=== PATIENT | male | born 1995 | race Hispanic/Latino ===

== ENCOUNTER 2019-10-01 18:10 | Emergency (ER) | payer BC ==
[2019-10-01 18:58] LABS: Absolute Lymphocytes (CBC) 1.2 K/uL (0.7-4.9); Hematocrit 38.9 % (39.6-49.0); Lymphocytes % 24.7 % (15.3-44.8); MPV 7.5 fL (7.6-11.3); RBC Red Blood Cell Count 4.54 M/uL (4.33-5.43)
[2019-10-01 19:00] LABS: Protime INR 1.29
[2019-10-01 19:26] LABS: ALT/SGPT 23 U/L (12-78); AST/SGOT 21 U/L (15-37); Albumin 3.4 g/dL (3.4-5.0); Alkaline Phosphatase 58 U/L (45-117); BUN Blood Urea Nitrogen 12 mg/dL (7-18); Bicarbonate 23 mmol/L (21-32); Bilirubin Direct 0.2 mg/dL (0-0.2); Bilirubin Total 0.7 mg/dL (0.2-1.0); Glucose Level 101 mg/dL (74-106); NT PRO-BNP 46 pg/mL (<125); Potassium 3.5 mmol/L (3.5-5.1); Protein, Total 7.8 g/dL (6.4-8.2); Sodium Level 141 mmol/L (136-145); Troponin (Emerg Dept Use Only) < 0.02 ng/mL (0.0-0.045)
--- NOTE | 2019-10-01 19:38 | RAD REPORT ---
EXAM DESCRIPTION: CT - Head Brain Wo Cont - 10/01/2019 7:24 pm CLINICAL HISTORY: SYNCOPE COMPARISON: No comparisons TECHNIQUE: Axial 5 mm thick images of the head were obtained without IV contrast. All CT scans are performed using dose optimization technique as appropriate and may include automated exposure control or mA/KV adjustment according to patient size. FINDINGS: No intracranial hemorrhage, mass, edema or shift of mid-line structures. No acute infarcti on changes seen. No abnormal extra-axial fluid collections. Ventricles are normal. Significant spray artifact is present from the cochlear implant on the left side. Mastoid air cells and visualized portions of the paranasal sinuses are clear. No acute bony findings. IMPRESSION: Negative non-contrast CT head examination. Portions of the occipital, temporal and parietal lobes are obscured by the left-sided cochlear implan t spray artifact.
--- NOTE | 2019-10-01 19:39 | RAD REPORT ---
EXAM DESCRIPTION: RAD - Chest Single View - 10/01/2019 6:36 pm CLINICAL HISTORY: syncope COMPARISON: December 2008 TECHNIQUE: AP portable chest image was obtained 10/01/2019 6:36 pm . FINDINGS: Lungs are clear. Heart and vasculature are normal. No measurable pleural effusion and no p neumothorax. No acute bone finding. Patient has normal variant upper thoracic rib anomaly. No acute a ortic findings suspected. IMPRESSION: No acute cardiopulmonary process. No significant change from comparison.
--- NOTE | 2019-10-01 20:43 | EDPHYS ---
Physician Documentation [facility] Name: Reji Sheriff Age: 24 yrs Sex: Male : 1995 Arrival Date: 10/01/2019 Time: 18:19 Bed 5 Private MD: ED Physician Jose Eduardo Lilly HPI: 09/30 18:58 This 24 yrs old Male presents to ER via EMS with complaints of Syncope. jmm 18:58 The patient has experienced syncope. Onset: The symptoms/episode began/occurred jm acutely, just prior to arrival. Associated injury: Head/face:. This is a 24 year old male with no chronic medical conditions that presents to the ED with syncope which occurred just prior to arrival. Patient was walking and fell to the floor while eating cake. Patient has currently been recovering from a strep infection. Patient was administered IV fluids with quick relief of symptoms. Patient currently only complains of chest pain which most likely occurred from the fall according to the father. . Historical: - Allergies: 18:23 No Known Allergies; bp - PMHx: 18:23 DEAF; bp - Immunization history:: Adult Immunizations up to date. - Social history:: Smoking status: Patient denies any tobacco usage or history of. ROS: 18:58 Constitutional: Negative for fever, chills, and weight loss, Respiratory: Negative for jmm shortness of breath, cough, wheezing, and pleuritic chest pain. 18:58 Cardiovascular: Positive for chest pain. 18:58 Neuro: Positive for syncope. 18:58 All other systems are negative. Exam: 18:44 ECG was reviewed by the Attending Physician. jmm 18:58 Constitutional: This is a well developed, well nourished patient who is awake, alert, jmm and in no acute distress. Head/Face: atraumatic. Eyes: EOMI, no conjunctival erythema appreciated ENT: Moist Mucus Membranes Neck: Trachea midline, Supple Chest/axilla: Normal chest wall appearance and motion. Cardiovascular: Regular rate and rhythm. No edema appreciated Respiratory: Normal respirations, no respiratory distress appreciated Abdomen/GI: Non distended, soft Back: Normal ROM Skin: General appearance color normal MS/ Extremity: Moves all extremities, no obvious deformities appreciated, no edema noted to the lower extremities Neuro: Awake and alert, normal gait Psych: Behavior is normal, Mood is normal, Patient is cooperative and pleasant Vital Signs: 18:20 BP 110 / 61; Pulse 79; Resp 16; Temp 98; Pulse Ox 100% ; bp 19:45 BP 116 / 63; Pulse 83; Resp 18; Pulse Ox 100% on R/A; sg 20:58 BP 108 / 67; Pulse 78; Resp 18; Pulse Ox 98% on R/A; ea MDM: 18:35 Patient medically screened. alexandre 20:41 Data reviewed: vital signs, nurses notes. Counseling: I had a detailed discussion with alexandre the patient and/or guardian regarding: the historical points, exam findings, and any diagnostic results supporting the discharge/admit diagnosis, the need for outpatient follow up, to return to the emergency department if symptoms worsen or persist or if there are any questions or concerns that arise at home. ED course: Patient is alert and non toxic in appearance in the ED. Ambulates without difficulty. Most likely vasovagal cause. Father advised to follow up with and otherwise given strict return precautions. Father understood and agrees with the plan of care. . 09/30 18:22 Order name: Basic Metabolic Panel; Complete Time: 19:29 [facility] 09/30 18:22 Order name: CBC with Diff; Complete Time: 19:29 [facility] 09/30 18:22 Order name: LFT's; Complete Time: 19:29 [facility] 09/30 18:22 Order name: Magnesium; Complete Time: 19:29 [facility] 09/30 18:22 Order name: NT PRO-BNP; Complete Time: 19:29 [facility] 09/30 18:22 Order name: PT-INR; Complete Time: 19:29 [facility] 09/30 18:22 Order name: Troponin (emerg Dept Use Only); Complete Time: 19:29 [facility] 09/30 18:22 Order name: XRAY Chest (1 view); Complete Time: 19:42 [facility] 09/30 18:22 Order name: EKG; Complete Time: 18:23 [facility] 09/30 18:22 Order name: Cardiac monitoring; Complete Time: 18:34 [facility] 09/30 18:22 Order name: EKG - Nurse/Tech; Complete Time: 18:34 [facility] 09/30 18:22 Order name: IV Saline Lock; Complete Time: 18:27 [facility] 09/30 18:22 Order name: Labs collected and sent; Complete Time: 19:01 [facility] 09/30 18:27 Order name: CT Head Brain wo Cont; Complete Time: 19:42 bp 09/30 18:22 Order name: O2 Per Protocol; Complete Time: 18:28 [facility] 09/30 18:22 Order name: O2 Sat Monitoring; Complete Time: 18:28 [facility] EC:44 Rate is 94 beats/min. Rhythm is regular. QRS [place] is Normal. VA interval is normal. QRS jmm interval is normal. QT interval is normal. No Q waves. T waves are Normal. No ST changes noted. Reviewed by me. Administered Medications: No medications were administered Disposition: 10/01 07:32 Co-signature as Attending Physician, Jose Eduardo Lilly MD. rn Disposition: 10/01/19 20:42 Discharged to Home. Impression: Syncope and collapse. - Condition is Stable. - Discharge Instructions: Syncope. - Medication Reconciliation Form, Thank You Letter, Antibiotic Education, Prescription Opioid Use, Work release form, Family Work Release form. - Follow up: Private Physician; When: 2 - 3 days; Reason: Recheck today's complaints, Continuance of care, Re-evaluation by your physician. Signatures: Dispatcher [employer] EDMS Rip An PA PA [facility] Jose Eduardo Lilly MD MD rn Antunez, Elena, RN RN ea Peltier, Brian, RN RN bp Corrections: (The following items were deleted from the chart) 09/30 21:16 20:42 10/01/2019 20:42 Discharged to Home. Impression: Syncope and collapse. Condition ea is Stable. Forms are Medication Reconciliation Form, Thank You Letter, Antibiotic Education, Prescription Opioid Use. Follow up: Private Physician; When: 2 - 3 days; Reason: Recheck today's complaints, Continuance of care, Re-evaluation by your physician. [facility]
--- NOTE | 2019-10-01 20:43 | ER ---
Nurse's Notes [facility] Name: Reji Sheriff Age: 24 yrs Sex: Male : 1995 Arrival Date: 10/01/2019 Time: 18:19 Bed 5 Private MD: Diagnosis: Syncope and collapse Presentation: 09/30 18:20 Chief complaint: EMS states: WITNESSED SYNCOPAL COLLAPSE. Coronavirus screen: Proceed bp with normal triage. Ebola Screen: No symptoms or risks identified at this time. Initial Sepsis Screen: Does the patient meet any 2 criteria? No. Patient's initial sepsis screen is negative. Does the patient have a suspected source of infection? No. Patient's initial sepsis screen is negative. Risk Assessment: Do you want to hurt yourself or someone else? Patient reports no desire to harm self or others. Onset of symptoms is unknown. Care prior to arrival: Medication(s) given: Normal saline infusion, 500 mL, IV initiated. 18 GA, in the left antecubital area. 18:20 Method Of Arrival: EMS: [facility] bp 18:20 Acuity: VIVEK 3 bp Triage Assessment: 18:23 General: Appears in no apparent distress. comfortable, Behavior is calm, cooperative, bp appropriate for age. Pain: Denies pain. EENT: No deficits noted. Neuro: Reports headache. Cardiovascular: Rhythm is sinus rhythm. Respiratory: No deficits noted. GI: No signs and/or symptoms were reported involving the gastrointestinal system. : No signs and/or symptoms were reported regarding the genitourinary system. Derm: No deficits noted. Musculoskeletal: No deficits noted. Historical: - Allergies: 18:23 No Known Allergies; bp - PMHx: 18:23 DEAF; bp - Immunization history:: Adult Immunizations up to date. - Social history:: Smoking status: Patient denies any tobacco usage or history of. Screenin:20 Abuse screen: Denies threats or abuse. Denies injuries from another. Nutritional bp screening: No deficits noted. Tuberculosis screening: No symptoms or risk factors identified. Fall Risk None identified. Assessment: 18:20 General: SEE TRIAGE NOTE. Neuro: Level of Consciousness is awake, alert, obeys bp commands, Oriented to person, place, time, situation, Appropriate for age. Cardiovascular: Rhythm is sinus rhythm. 20:40 General: Appears in no apparent distress. Behavior is calm, cooperative, appropriate ea for age. Pain: Denies pain. Neuro: Level of Consciousness is awake, alert, obeys commands, Oriented to person, place, time, situation. Cardiovascular: Patient's skin is warm and dry. Respiratory: Airway is patent Respiratory effort is even, unlabored, Respiratory pattern is regular, symmetrical. Derm: Skin is pink, warm \T\ dry. 20:57 Reassessment: Patient and/or family updated on plan of care and expected duration. Pain ea level reassessed. Patient is alert, oriented x 3, equal unlabored respirations, skin warm/dry/pink. Discharge instruction given to patient and family, pt awaiting on ride home. Vital Signs: 18:20 BP 110 / 61; Pulse 79; Resp 16; Temp 98; Pulse Ox 100% ; bp 19:45 BP 116 / 63; Pulse 83; Resp 18; Pulse Ox 100% on R/A; sg 20:58 BP 108 / 67; Pulse 78; Resp 18; Pulse Ox 98% on R/A; ea ED Course: 18:19 Patient arrived in ED. bp 18:20 Rip An PA is PHCP. jmm 18:20 Jose Eduardo Lilly MD is Attending Physician. jmm 18:20 Patient has correct armband on for positive identification. Bed in low position. Call bp light in reach. Side rails up X2. 18:20 Maintain EMS IV. Dressing intact. Good blood return noted. Site clean \T\ dry. Gauge \T\ bp site: 18 GAUGE LEFT AC. 18:22 Triage completed. bp 18:24 Arm band placed on. bp 18:27 Cristobal Wolf, SHANTA is Primary Nurse. bp 18:37 XRAY Chest (1 view) In Process Unspecified. EDMS 18:45 EKG done, by ED staff, reviewed by Rip ORTIZ. jb1 19:24 CT Head Brain wo Cont In Process Unspecified. EDMS 20:56 No provider procedures requiring assistance completed. IV discontinued, intact, ea bleeding controlled, No redness/swelling at site. Pressure dressing applied. Administered Medications: No medications were administered Outcome: 20:42 Discharge ordered by MD. jmm 20:57 Condition: stable ea 20:57 Discharge instructions given to patient, family, Instructed on discharge instructions, follow up and referral plans. Demonstrated understanding of instructions. 21:16 Discharged to home ambulatory, with family. joie 21:16 Patient left the ED. joie Signatures: Dispatcher [employer] EDMarv Galvan jb1 Kuldeep Salinas, RN RN Rip Gaston PA PA jmm Antunez, Elena, RN RN ea Peltier, Brian, RN RN bp Corrections: (The following items were deleted from the chart) 20:39 20:39 BP 116 / 63; Pulse 83bpm; Resp 18bpm; Pulse Ox 100% RA; sg sg
[2019-10-01 21:20] VITALS: TEMP 98
[2019-10-01 21:23] VITALS: BP 108/67; O2SAT 98
== END 2019-10-01 21:16 | disposition home or self-care (01) ==
LOC: ER 18:10
DX: R55 Syncope and collapse (principal)
CPT/HCPCS: 36415; 70450; 71045; 80048; 80076; 83735; 83880; 84484; 85025; 85610; 93005; 99284

== ENCOUNTER 2019-10-10 22:47 | Emergency (ER) | payer BC ==
[2019-10-11] MEDS ORDERED: LORazepam 2 MG/ML VIAL ONE ×2 (00:08→00:31)
[2019-10-11 00:14] LABS: Absolute Lymphocytes (CBC) 2.3 K/uL (0.7-4.9); Basophils % 1.2 % (0-1.3); Hematocrit 39.4 % (39.6-49.0); Lymphocytes % 46.9 % (15.3-44.8); MPV 8.6 fL (7.6-11.3); RBC Red Blood Cell Count 4.62 M/uL (4.33-5.43)
[2019-10-11 00:18] LABS: Protime INR 1.2
[2019-10-11 00:44] LABS: ALT/SGPT 21 U/L (12-78); AST/SGOT 22 U/L (15-37); Albumin 3.9 g/dL (3.4-5.0); Alkaline Phosphatase 64 U/L (45-117); BUN Blood Urea Nitrogen 14 mg/dL (7-18); Bicarbonate 26 mmol/L (21-32); Bilirubin Direct 0.1 mg/dL (0-0.2); Bilirubin Total 0.5 mg/dL (0.2-1.0); Glucose Level 78 mg/dL (74-106); Magnesium 1.9 mg/dL (1.8-2.4); Potassium 3.7 mmol/L (3.5-5.1); Protein, Total 8.2 g/dL (6.4-8.2); Sodium Level 139 mmol/L (136-145)
--- NOTE | 2019-10-11 01:21 | ER ---
Nurse's Notes [facility] Name: Reji Sheriff Age: 24 yrs Sex: Male : 1995 Arrival Date: 10/10/2019 Time: 22:51 Bed 13 Private MD: Yogesh Durbin R Diagnosis: Myoclonic Seizure Presentation: 10/09 23:07 Chief complaint: Parent and/or Guardian states: "He came by EMS last week after a jd3 seizure and was reporting left arm pain. they said he was dehydrated, treated him and sent him home. well tonight he started having that same pain in his left arm and he started having an uncontrollable twitch with that same arm and we don't know why, because he is feeling better compared to last week.". Coronavirus screen: Proceed with normal triage. Ebola Screen: Patient negative for fever greater than or equal to 101.5 degrees Fahrenheit, and additional compatible Ebola Virus Disease symptoms. Initial Sepsis Screen: Does the patient meet any 2 criteria? No. Patient's initial sepsis screen is negative. Does the patient have a suspected source of infection? No. Patient's initial sepsis screen is negative. Risk Assessment: Do you want to hurt yourself or someone else? Patient reports no desire to harm self or others. Onset of symptoms was October 10, 2019. 23:07 Method Of Arrival: Ambulatory jd3 23:07 Acuity: VIVEK 3 jd3 Historical: - Allergies: 23:12 No Known Allergies; jd3 - Home Meds: 23:12 None [Active]; jd3 - PMHx: 23:12 Deaf; jd3 - PSHx: 23:12 right sx; jd3 - Immunization history:: Adult Immunizations up to date. - Social history:: Smoking status: Patient denies any tobacco usage or history of. Patient/guardian denies using street drugs. Screenin:13 Abuse screen: Denies threats or abuse. Nutritional screening: No deficits noted. jd3 Tuberculosis screening: No symptoms or risk factors identified. Fall Risk Ambulatory Aid- None/Bed Rest/Nurse Assist (0 pts). Gait- Normal/Bed Rest/Wheelchair (0 pts) Mental Status- Oriented to own ability (0 pts). Total Krueger Fall Scale indicates No Risk (0-24 pts). Assessment: 23:12 General: Appears in no apparent distress. uncomfortable, Behavior is calm, cooperative, jd3 appropriate for age. Pain: Complains of pain in left arm Quality of pain is described as radiating. Neuro: Level of Consciousness is awake, alert, obeys commands, Oriented to person, place, time, situation. Cardiovascular: Capillary refill < 3 seconds Patient's skin is warm and dry. Respiratory: Airway is patent Respiratory effort is even, unlabored, Respiratory pattern is regular, symmetrical, Denies cough, shortness of breath. GI: No signs and/or symptoms were reported involving the gastrointestinal system. : No signs and/or symptoms were reported regarding the genitourinary system. EENT: No signs and/or symptoms were reported regarding the EENT system. Derm: Skin is intact, Skin is dry, Skin is normal, Skin temperature is warm. Musculoskeletal: Circulation, motion, and sensation intact. Range of motion: intact in all extremities, twitching of the left arm noted. 10/10 00:58 Reassessment: Patient appears in no apparent distress at this time. Patient and/or jd3 family updated on plan of care and expected duration. Pain level reassessed. Patient is alert, oriented x 3, equal unlabored respirations, skin warm/dry/pink. twitching to the left arm stopped. pt reporting less pain. Patient states feeling better. 01:35 Reassessment: Patient appears in no apparent distress at this time. Patient and/or jd3 family updated on plan of care and expected duration. Pain level reassessed. Patient is alert, oriented x 3, equal unlabored respirations, skin warm/dry/pink. Patient denies pain at this time. Patient states feeling better. Vital Signs: 10/09 23:12 BP 116 / 70; Pulse 86; Resp 16 S; Temp 98.3(O); Pulse Ox 99% on R/A; Weight 52.16 kg jd3 (R); Height 5 ft. 1 in. (154.94 cm) (R); Pain 10/10; 10/10 00:58 BP 105 / 60; Pulse 69; Resp 16 S; Pulse Ox 100% on R/A; jd3 10/09 23:12 Body Mass Index 21.73 (52.16 kg, 154.94 cm) d3 ED Course: 10/09 22:51 Patient arrived in ED. es 22:52 Yogesh Durbin MD is Private Physician. es 23:01 James Bearden RN is Primary Nurse. jd3 23:11 Triage completed. jd3 23:12 Arm band placed on. jd3 23:14 Patient has correct armband on for positive identification. Bed in low position. Call jd3 light in reach. Side rails up X 1. Adult w/ patient. Pulse ox on. NIBP on. 23:20 Adria Posada PA is PHCP. jr8 23:20 Esa Lawrence MD is Attending Physician. jr8 23:55 Inserted saline lock: 20 gauge in left antecubital area, using aseptic technique. Blood jd3 collected. 10/10 01:19 Ismael Sheth MD is Referral Physician. jr8 01:34 No provider procedures requiring assistance completed. IV discontinued, intact, jd3 bleeding controlled, No redness/swelling at site. Pressure dressing applied. Administered Medications: 00:09 Drug: Ativan 1 mg Route: IVP; Site: left antecubital; jd3 01:05 Follow up: Response: No adverse reaction jd3 00:27 Drug: Ativan 1 mg Route: IVP; Site: left antecubital; jd3 01:25 Follow up: Response: No adverse reaction jd3 Outcome: 01:20 Discharge ordered by . jr8 01:34 Discharged to home ambulatory, with family. jd3 01:34 Condition: stable 01:34 Discharge instructions given to patient, family, Instructed on discharge instructions, follow up and referral plans. medication usage, Demonstrated understanding of instructions, follow-up care, medications, Prescriptions given X 1. 01:37 Patient left the ED. jd3 Signatures: Joselin Tompkins Josh, PA PA jr8 James Bearden RN RN jd3 Corrections: (The following items were deleted from the chart) 01:37 0720 23:12 Musculoskeletal: Circulation, motion, and sensation intact. Range of jd3 motion: intact in all extremities, jd3 10/10 01:37 00:58 Reassessment: Patient appears in no apparent distress at this time. Patient jd3 and/or family updated on plan of care and expected duration. Pain level reassessed. Patient is alert, oriented x 3, equal unlabored respirations, skin warm/dry/pink. Patient states feeling better. jd3
--- NOTE | 2019-10-11 01:21 | EDPHYS ---
Physician Documentation [facility] Name: Reji Sheriff Age: 24 yrs Sex: Male : 1995 Arrival Date: 10/10/2019 Time: 22:51 Bed 13 Private MD: Yogesh Durbin R ED Physician Esa Lawrence HPI: 10/10 00:16 This 24 yrs old Male presents to ER via Ambulatory with complaints of Arm jr8 Problem, Hand problem. 00:16 Onset: The symptoms/episode began/occurred acutely, today. Associated signs and jr8 symptoms: The patient has no apparent associated signs or symptoms. Severity of symptoms: At their worst the symptoms were moderate, in the emergency department the symptoms are unchanged. The patient has not experienced similar symptoms in the past. The patient has been recently seen by a physician:. Patients mother stated that he started to have left arm pain. Had this once before and was seen in ED and diagnosed with syncope/seizure. Came today for arm pain again but now having twitching to arm that will not stop. Historical: - Allergies: 10/09 23:12 No Known Allergies; jd3 - Home Meds: 23:12 None [Active]; jd3 - PMHx: 23:12 Deaf; jd3 - PSHx: 23:12 right sx; jd3 - Immunization history:: Adult Immunizations up to date. - Social history:: Smoking status: Patient denies any tobacco usage or history of. Patient/guardian denies using street drugs. ROS: 10/10 00:16 Eyes: Negative for injury, pain, redness, and discharge, ENT: Negative for injury, jr8 pain, and discharge, Neck: Negative for injury, pain, and swelling, Cardiovascular: Negative for chest pain, palpitations, and edema, Respiratory: Negative for shortness of breath, cough, wheezing, and pleuritic chest pain, Abdomen/GI: Negative for abdominal pain, nausea, vomiting, diarrhea, and constipation, Back: Negative for injury and pain, Skin: Negative for injury, rash, and discoloration. MS/extremity: Positive for pain, Negative for injury or acute deformity, decreased range of motion. Neuro: Positive for seizure activity. Exam: 00:23 Eyes: Pupils equal round and reactive to light, extra-ocular motions intact. Lids and jr8 lashes normal. Conjunctiva and sclera are non-icteric and not injected. Cornea within normal limits. Periorbital areas with no swelling, redness, or edema. ENT: Nares patent. No nasal discharge, no septal abnormalities noted. Tympanic membranes are normal and external auditory canals are clear. Oropharynx with no redness, swelling, or masses, exudates, or evidence of obstruction, uvula midline. Mucous membranes moist. Neck: Trachea midline, no thyromegaly or masses palpated, and no cervical lymphadenopathy. Supple, full range of motion without nuchal rigidity, or vertebral point tenderness. No Meningismus. Cardiovascular: Regular rate and rhythm with a normal S1 and S2. No gallops, murmurs, or rubs. Normal PMI, no JVD. No pulse deficits. Respiratory: Lungs have equal breath sounds bilaterally, clear to auscultation and percussion. No rales, rhonchi or wheezes noted. No increased work of breathing, no retractions or nasal flaring. Abdomen/GI: Soft, non-tender, with normal bowel sounds. No distension or tympany. No guarding or rebound. No evidence of tenderness throughout. Back: No spinal tenderness. No costovertebral tenderness. Full range of motion. Skin: Warm, dry with normal turgor. Normal color with no rashes, no lesions, and no evidence of cellulitis. MS/ Extremity: Pulses equal, no cyanosis. Neurovascular intact. Full, normal range of motion. Neuro: Awake and alert, GCS 15, oriented to person, place, time, and situation. Cranial nerves II-XII grossly intact. Motor strength 5/5 in all extremities. Sensory grossly intact. Patient has focal twitching to left arm only. Vital Signs: 10/09 23:12 BP 116 / 70; Pulse 86; Resp 16 S; Temp 98.3(O); Pulse Ox 99% on R/A; Weight 52.16 kg jd3 (R); Height 5 ft. 1 in. (154.94 cm) (R); Pain 10/10; 10/10 00:58 BP 105 / 60; Pulse 69; Resp 16 S; Pulse Ox 100% on R/A; jd3 10/09 23:12 Body Mass Index 21.73 (52.16 kg, 154.94 cm) jd3 MDM: 10/09 23:27 Patient medically screened. jr8 07/21 01:17 Data reviewed: vital signs, nurses notes, lab test result(s), EKG. Data interpreted: Pulse oximetry: on room air is 100 %. Interpretation: normal. Counseling: I had a detailed discussion with the patient and/or guardian regarding: the historical points, exam findings, and any diagnostic results supporting the discharge/admit diagnosis, lab results, the need for outpatient follow up, a neurologist, to return to the emergency department if symptoms worsen or persist or if there are any questions or concerns that arise at home. Response to treatment: the patient's symptoms have resolved after treatment. ED course: Patient appears to be having myoclonic seizures. Ativan given which abated them. Patient had recent negative CT. Recommended him f/u with neurology at this point. Will put him on benzos for now until he can f/u. Mom knows to bring him back if worse . 10/09 23:44 Order name: Acetaminophen; Complete Time: 00:46 10/09 23:44 Order name: Basic Metabolic Panel; Complete Time: 00:10/09 23:44 Order name: CBC with Diff; Complete Time: 00:26 10/09 23:44 Order name: ETOH Level; Complete Time: 00:46 10/09 23:44 Order name: Hepatic Function; Complete Time: 00:46 10/09 23:44 Order name: PT-INR; Complete Time: 00:46 10/09 23:44 Order name: Ptt, Activated; Complete Time: 00:46 10/09 23:44 Order name: Salicylate; Complete Time: 00:46 10/09 23:44 Order name: EKG; Complete Time: 23:45 10/09 23:44 Order name: EKG - Nurse/Tech; Complete Time: 00:10/09 23:44 Order name: Magnesium; Complete Time: 00:46 10/09 23:44 Order name: IV Saline Lock; Complete Time: 00:10/09 23:44 Order name: Labs collected and sent; Complete Time: 00:09 Administered Medications: 00:09 Drug: Ativan 1 mg Route: IVP; Site: left antecubital; jd3 01:05 Follow up: Response: No adverse reaction jd3 00:27 Drug: Ativan 1 mg Route: IVP; Site: left antecubital; jd3 01:25 Follow up: Response: No adverse reaction jd3 Disposition: 02:51 Co-signature as Attending Physician, Esa Lawrence MD. mh7 Disposition: 10/11/19 01:20 Discharged to Home. Impression: Myoclonic Seizure . - Condition is Stable. - Discharge Instructions: Seizure, Adult. - Prescriptions for Ativan 1 mg Oral Tablet - take 1 tablet by ORAL route every 8 hours As needed; 20 tablet. - Medication Reconciliation Form, Thank You Letter, Antibiotic Education, Prescription Opioid Use, Work release form form. - Follow up: Ismael Sheth MD; When: 2 - 3 days; Reason: Recheck today's complaints, Continuance of care, Re-evaluation by your physician. - Problem is new. - Symptoms are resolved. Signatures: Dispatcher [employer] EDMS Adria Posada PA PA jr8 James Bearden RN RN jd3 Holmes, Maurice, MD MD mh7 Corrections: (The following items were deleted from the chart) 01:37 01:20 10/11/2019 01:20 Discharged to Home. Impression: Myoclonic Seizure . Condition is jd3 Stable. Forms are Medication Reconciliation Form, Thank You Letter, Antibiotic Education, Prescription Opioid Use. Follow up: Ismael Sheth; When: 2 - 3 days; Reason: Recheck today's complaints, Continuance of care, Re-evaluation by your physician. Problem is new. Symptoms are resolved. jr8
--- NOTE | 2019-10-11 10:14 | EKG ---
Test Date: 2019-10-10 Test Time: 23:56:43 Black Studies Professor: KAELYN MEASUREMENT RESULTS: Intervals: Rate: 86 TN: 130 QRSD: 90 QT: 350 QTc: 418 [place]: P: 63 TN: 130 QRS: 70 T: 45 INTERPRETIVE STATEMENTS: Normal sinus rhythm Normal ECG Compared to ECG 10/01/2019 18:36:16 No significant changes Electronically Signed On 10-11-19 10:13:46 CDT by Lyle Gordon
[2019-10-11 12:23] VITALS: TEMP 98.3
[2019-10-11 12:24] VITALS: BP 105/60; O2SAT 100
== END 2019-10-11 01:37 | disposition home or self-care (01) ==
LOC: ER 22:47
DX: G40.409 Other generalized epilepsy and epileptic syndromes, not intractable, without status epilepticus (principal)
CPT/HCPCS: 36415; 80048; 80076; 80320; 80329; 83735; 85025; 85610; 85730; 93005; 96374; 99284

== ENCOUNTER 2019-10-14 18:20 | Emergency (ER) | payer BC ==
[2019-10-14] MEDS ORDERED: LORazepam 2 MG/ML VIAL ONE (21:21)
--- NOTE | 2019-10-14 21:28 | RAD REPORT ---
EXAM DESCRIPTION: CT - Head Brain Wo Cont - 10/14/2019 9:09 pm CLINICAL HISTORY: Numbness COMPARISON: October 01, 2019 TECHNIQUE: Computed axial tomography of the head was obtained. IV contrast was not requested. All CT scans are performed using dose optimization technique as appropriate and may include automated exposure control or mA/KV adjustment according to patient size. FINDINGS: Left cochlear implant results in artifact obscuring portions of the left cerebrum and left cerebellum. Intracranial bleed is not seen. Ventricles are normal caliber. An extra-axial fluid collection is not seen. Visualized sinuses mastoids clear IMPRESSION: Grossly normal unenhanced head CT
[2019-10-14 22:08] LABS: Absolute Lymphocytes (CBC) 1.8 K/uL (0.7-4.9)
[2019-10-14 22:21] LABS: Basophils % 0.7 % (0-1.3); Hematocrit 42.1 % (39.6-49.0); Lymphocytes % 47.1 % (15.3-44.8); MPV 8.3 fL (7.6-11.3); RBC Red Blood Cell Count 4.93 M/uL (4.33-5.43)
[2019-10-14 22:32] LABS: ALT/SGPT 26 U/L (12-78); AST/SGOT 22 U/L (15-37); Albumin 4.1 g/dL (3.4-5.0); Alkaline Phosphatase 66 U/L (45-117); BUN Blood Urea Nitrogen 16 mg/dL (7-18); Bicarbonate 23 mmol/L (21-32); Bilirubin Direct 0.1 mg/dL (0-0.2); Bilirubin Total 0.5 mg/dL (0.2-1.0); Creatine Phosphokinase 60 U/L (39-308); Glucose Level 81 mg/dL (74-106); Phosphorus 3.6 mg/dL (2.5-4.9); Potassium 3.6 mmol/L (3.5-5.1); Protein, Total 8.5 g/dL (6.4-8.2); Sodium Level 140 mmol/L (136-145)
--- NOTE | 2019-10-14 23:02 | ER ---
Nurse's Notes [facility] Name: Reji Sheriff Age: 24 yrs Sex: Male : 1995 Arrival Date: 10/14/2019 Time: 18:22 Bed 7 Private MD: Diagnosis: Left Hand Twitching;Muscle Spasm Presentation: 10/13 18:36 Chief complaint: Parent and/or Guardian states: L hand twitching that began 1 week ago. ss Seen in the ER then and told to follow up with Neuro, but unable to get in until October 31. Coronavirus screen: Patient denies a cough. Patient denies shortness of breath or difficulty breathing. Patient denies measured and/or subjective temperature greater than 100.4F prior to today's visit. Patient denies travel on a cruise ship or to a country the [facility] currently lists as an affected area. Patient denies contact with known and/or suspected case of COVID-19. Ebola Screen: Patient denies exposure to infectious person. Patient denies travel to an Ebola-affected area in the 21 days before illness onset. Initial Sepsis Screen: Does the patient meet any 2 criteria? No. Patient's initial sepsis screen is negative. Does the patient have a suspected source of infection? No. Patient's initial sepsis screen is negative. Risk Assessment: Do you want to hurt yourself or someone else? Patient reports no desire to harm self or others. Onset of symptoms was October 06, 2019. 18:36 Method Of Arrival: Ambulatory ss 18:36 Acuity: VIVEK 3 ss Historical: - Allergies: 18:38 No Known Allergies; ss - PMHx: 18:38 Deaf; ss - PSHx: 18:38 right hand surgery; ss - Immunization history:: Adult Immunizations up to date. - Social history:: Smoking status: Patient denies any tobacco usage or history of. Screenin:06 Abuse screen: Denies threats or abuse. Denies injuries from another. Nutritional rr5 screening: No deficits noted. Tuberculosis screening: No symptoms or risk factors identified. Fall Risk None identified. Total Krueger Fall Scale indicates No Risk (0-24 pts). Assessment: 19:50 General: Appears in no apparent distress. comfortable, Behavior is calm, cooperative, rr5 appropriate for age. 19:50 Pain: Denies pain. Neuro: Level of Consciousness is awake, alert, obeys commands, rr5 Seizure activity remote sensing specialist stated his left hand is twitching. Cardiovascular: Capillary refill < 3 seconds Patient's skin is warm and dry. Respiratory: Airway is patent Respiratory effort is even, unlabored, Respiratory pattern is regular, symmetrical. GI: No signs and/or symptoms were reported involving the gastrointestinal system. : No signs and/or symptoms were reported regarding the genitourinary system. EENT: Parent/caregiver reports the patient having deaf. Derm: Skin is intact, is healthy with good turgor, Skin temperature is warm. Musculoskeletal: Capillary refill < 3 seconds. 22:00 Reassessment: Patient appears in no apparent distress at this time. Patient is alert, rr5 oriented x 3, equal unlabored respirations, skin warm/dry/pink. twitching stopped as stated by the remote sensing specialist. blood recollect and sent Patient states feeling better. Patient states symptoms have improved. 23:13 Reassessment: Patient appears in no apparent distress at this time. Patient is alert, rr5 oriented x 3, equal unlabored respirations, skin warm/dry/pink. discharge instruction given and explained without complaints made. Vital Signs: 18:36 BP 108 / 72; Pulse 75; Resp 14; Temp 98.0(TE); Pulse Ox 98% on R/A; Weight 52.16 kg; ss Height 5 ft. 1 in. (154.94 cm); 22:00 BP 110 / 70; Pulse 85; Resp 16; Pulse Ox 99% ; rr5 23:13 BP 111 / 72; Pulse 70; Resp 19; Pulse Ox 99% ; rr5 18:36 Body Mass Index 21.73 (52.16 kg, 154.94 cm) ED Course: 18:22 Patient arrived in ED. ag5 18:38 Triage completed. ss 18:38 Arm band placed on left wrist. ss 19:50 Levi Moreno, SHANTA is Primary Nurse. rr5 20:06 Patient has correct armband on for positive identification. Bed in low position. Call rr5 light in reach. Adult w/ patient. Pulse ox on. NIBP on. 20:32 Esa Lawrence MD is Attending Physician. mh7 21:10 CT Head Brain wo Cont In Process Unspecified. EDMS 21:40 Inserted saline lock: 20 gauge in right hand, using aseptic technique. Blood collected. rr5 22:41 No provider procedures requiring assistance completed. rr5 22:58 Ismael Sheth MD is Referral Physician. 7 23:15 IV discontinued, intact, bleeding controlled, No redness/swelling at site. Pressure rr5 dressing applied. Administered Medications: 21:28 Drug: Ativan 1 mg Route: IVP; Site: right hand; rr5 23:14 Follow up: Response: No adverse reaction rr5 Outcome: 23:00 Discharge ordered by . 7 23:15 Discharged to home ambulatory, with family. rr5 23:15 Condition: stable 23:15 Discharge instructions given to family, Instructed on discharge instructions, follow up and referral plans. medication usage, Demonstrated understanding of instructions, follow-up care, medications, Prescriptions given X 1. 23:15 Patient left the ED. rr5 Signatures: Dispatcher [employer] EDMS Joana Guillen RN RN Levi Moreno RN RN rr5 Nathen Lassiter 5 Esa Lawrence MD MD [facility] Corrections: (The following items were deleted from the chart) 23:14 19:50 EENT: No signs and/or symptoms were reported regarding the EENT system. rr5 rr5
--- NOTE | 2019-10-14 23:02 | EDPHYS ---
Physician Documentation [facility] Name: Reji Sheriff Age: 24 yrs Sex: Male : 1995 Arrival Date: 10/14/2019 Time: 18:22 Bed 7 Private MD: ED Physician Esa Lawrence HPI: 10/13 22:17 This 24 yrs old Male presents to ER via Ambulatory with complaints of Hand mh7 Problem. 22:17 The patient or guardian complains of. mh7 22:18 The patient's problem is reported as. mh7 22:20 The patient or guardian complains of left hand twitching. The complaints affect the mh7 left hand. Context: The problem was sustained at home, resulted from unknown cause. Onset: The symptoms/episode began/occurred 1 week(s) ago. Treatment prior to arrival includes: no previous treatment. Modifying factors: The symptoms are alleviated by nothing. the symptoms are aggravated by nothing. Associated signs and symptoms: Pertinent positives: pain, Pertinent negatives: decreased range of motion, deformity, erythema, fever, nausea, numbness, swelling, tingling, vomiting, warmth, weakness. Severity of symptoms: At their worst the symptoms were moderate, yesterday, in the emergency department the symptoms have improved, mildly. The patient has experienced a previous episode, last week. The patient has been recently seen at the [facility] Emergency Department, last week. Patient has had left hand twitching that started one week ago. He was treated in the ED with improvement of symptoms and discharged. Symptoms returned this morning. Denies any fever, injury, numbness/tingling, or weakness.. Historical: - Allergies: 18:38 No Known Allergies; ss - PMHx: 18:38 Deaf; ss - PSHx: 18:38 right hand surgery; ss - Immunization history:: Adult Immunizations up to date. - Social history:: Smoking status: Patient denies any tobacco usage or history of. ROS: 22:20 Constitutional: Negative for fever, chills, and weight loss, Eyes: Negative for injury, mh7 pain, redness, and discharge, ENT: Negative for injury, pain, and discharge, Neck: Negative for injury, pain, and swelling, Cardiovascular: Negative for chest pain, palpitations, and edema, Respiratory: Negative for shortness of breath, cough, wheezing, and pleuritic chest pain, Abdomen/GI: Negative for abdominal pain, nausea, vomiting, diarrhea, and constipation, Back: Negative for injury and pain, : Negative for injury, bleeding, discharge, and swelling, Skin: Negative for injury, rash, and discoloration, Psych: Negative for depression, anxiety, suicide ideation, homicidal ideation, and hallucinations, Allergy/Immunology: Negative for hives, rash, and allergies, Endocrine: Negative for neck swelling, polydipsia, polyuria, polyphagia, and marked weight changes, Hematologic/Lymphatic: Negative for swollen nodes, abnormal bleeding, and unusual bruising. Exam: 22:20 Constitutional: This is a well developed, well nourished patient who is awake, alert, mh7 and in no acute distress. Head/Face: Normocephalic, atraumatic. Eyes: Pupils equal round and reactive to light, extra-ocular motions intact. Lids and lashes normal. Conjunctiva and sclera are non-icteric and not injected. Cornea within normal limits. Periorbital areas with no swelling, redness, or edema. ENT: Nares patent. No nasal discharge, no septal abnormalities noted. Tympanic membranes are normal and external auditory canals are clear. Oropharynx with no redness, swelling, or masses, exudates, or evidence of obstruction, uvula midline. Mucous membranes moist. Neck: Trachea midline, no thyromegaly or masses palpated, and no cervical lymphadenopathy. Supple, full range of motion without nuchal rigidity, or vertebral point tenderness. No Meningismus. Chest/axilla: Normal chest wall appearance and motion. Nontender with no deformity. No lesions are appreciated. Cardiovascular: Regular rate and rhythm with a normal S1 and S2. No gallops, murmurs, or rubs. Normal PMI, no JVD. No pulse deficits. Respiratory: Lungs have equal breath sounds bilaterally, clear to auscultation and percussion. No rales, rhonchi or wheezes noted. No increased work of breathing, no retractions or nasal flaring. Abdomen/GI: Soft, non-tender, with normal bowel sounds. No distension or tympany. No guarding or rebound. No evidence of tenderness throughout. Back: No spinal tenderness. No costovertebral tenderness. Full range of motion. Skin: Warm, dry with normal turgor. Normal color with no rashes, no lesions, and no evidence of cellulitis. 22:20 Neuro: Awake and alert, GCS 15, oriented to person, place, time, and situation. Cranial nerves II-XII grossly intact. Motor strength 5/5 in all extremities. Sensory grossly intact. Cerebellar exam normal. Normal gait. Psych: Awake, alert, with orientation to person, place and time. Behavior, mood, and affect are within normal limits. 22:20 Musculoskeletal/extremity: Extremities: noted in the left hand: twitching, spasm, ROM: intact in all extremities, Circulation is intact in all extremities. Pulses: are normal with no appreciated deficits, Perfusion: the patient is normally perfused throughout, Perfusion: the extremity is normally perfused throughout, Sensation intact. Compartment Syndrome exam of affected extremity: is normal. no pain, no numbness, no tingling, no sensation deficit, no palor, no weak pulses, Joints: All joints appear normal with full range of motion. Weight bearing: able to fully bear weight, without difficulty, Tendon exam: specific tendon testing normal through active and passive range of motion Vital Signs: 18:36 BP 108 / 72; Pulse 75; Resp 14; Temp 98.0(TE); Pulse Ox 98% on R/A; Weight 52.16 kg; ss Height 5 ft. 1 in. (154.94 cm); 22:00 BP 110 / 70; Pulse 85; Resp 16; Pulse Ox 99% ; rr5 23:13 BP 111 / 72; Pulse 70; Resp 19; Pulse Ox 99% ; rr5 18:36 Body Mass Index 21.73 (52.16 kg, 154.94 cm) MDM: 20:52 Patient medically screened. [facility] 22:56 Differential diagnosis: Muscle Spasm, Paresthesias, Muscle Twitching, Focal Seizure. 7 Data reviewed: vital signs, nurses notes, old medical records, lab test result(s), CBC, electrolytes, radiologic studies, CT scan. Data interpreted: Pulse oximetry: on room air is 99 %. Interpretation: normal. Counseling: I had a detailed discussion with the patient and/or guardian regarding: the historical points, exam findings, and any diagnostic results supporting the discharge/admit diagnosis, lab results, radiology results, the need for outpatient follow up, to return to the emergency department if symptoms worsen or persist or if there are any questions or concerns that arise at home. Response to treatment: the patient's symptoms have resolved after treatment, the patient's blood pressure is in an acceptable range, mental status has returned to baseline, the patient no longer shows bradycardia, the patient is not short of breath, the patient is not tachycardic, the patient's pain is gone, the patient's temperature has normalized. 10/13 20:58 Order name: CBC with Diff; Complete Time: 22:49 7 10/13 20:58 Order name: Basic Metabolic Panel; Complete Time: 22:49 [facility] 10/13 20:58 Order name: LFT's; Complete Time: 22:49 [facility] 10/13 20:58 Order name: CPK; Complete Time: 22:49 [facility] 10/13 20:59 Order name: Magnesium; Complete Time: 22:49 [facility] 10/13 20:59 Order name: Phosphorus; Complete Time: 22:49 [facility] 10/13 20:59 Order name: CT Head Brain wo Cont; Complete Time: 21:56 [facility] 10/13 20:59 Order name: Saline Lock; Complete Time: 21:28 7 Administered Medications: 21:28 Drug: Ativan 1 mg Route: IVP; Site: right hand; rr5 23:14 Follow up: Response: No adverse reaction rr5 Disposition: 10/14/19 23:00 Discharged to Home. Impression: Left Hand Twitching, Muscle Spasm. - Condition is Stable. - Discharge Instructions: Muscle Cramps and Spasms, [id number]. - Prescriptions for Ativan 1 mg Oral Tablet - take 1 tablet by ORAL route every 8 hours As needed; 15 tablet. - Medication Reconciliation Form, Thank You Letter, Antibiotic Education, Prescription Opioid Use form. - Follow up: Private Physician; When: 2 - 3 days; Reason: Worsening of condition, Recheck today's complaints, Continuance of care, Re-evaluation by your physician. Follow up: Ismael Sheth MD; When: 2 - 3 days; Reason: Worsening of condition, Recheck today's complaints. - Problem is an ongoing problem. - Symptoms have improved. Signatures: Dispatcher [employer] EDTX Joana Guillen RN RN Levi Moreno RN RN rr5 Esa Lawrence MD MD mh7 Corrections: (The following items were deleted from the chart) 23:15 23:00 10/14/2019 23:00 Discharged to Home. Impression: Left Hand Twitching; Muscle rr5 Spasm. Condition is Stable. Forms are Medication Reconciliation Form, Thank You Letter, Antibiotic Education, Prescription Opioid Use. Follow up: Private Physician; When: 2 - 3 days; Reason: Worsening of condition, Recheck today's complaints, Continuance of care, Re-evaluation by your physician. Follow up: Ismael Sheth; When: 2 - 3 days; Reason: Worsening of condition, Recheck today's complaints. Problem is an ongoing problem. Symptoms have improved. mh7
[2019-10-14 23:21] VITALS: TEMP 98
[2019-10-14 23:22] VITALS: O2SAT 99
[2019-10-14 23:24] VITALS: BP 111/72
== END 2019-10-14 23:15 | disposition home or self-care (01) ==
LOC: ER 18:20
DX: M62.838 Other muscle spasm (principal)
CPT/HCPCS: 36415; 70450; 80048; 80076; 82550; 83735; 84100; 85025; 96374; 99284

== ENCOUNTER 2019-11-04 07:05 | Emergency (ER) | payer BC ==
--- OUTSIDE RECORDS SUMMARY | 2019-11-04 07:06 | XMS REPORT | Continuity of Care Document ---
:1995 Author Organization [facility] t Address [address] [place] [address] Dr. Turner [address] [place] [id number] Care Team Providers Name Role Phone Unavailable Unavailable Unavailable Problems This patient has no known problems. Allergies, Adverse Reactions, Alerts This patient has no known allergies or adverse reactions. Medications This patient has no known medications. Procedures This patient has no known procedures. Encounters Start End Encounter Admission Attending Care Care Encounter Source Date/Time Date/Time Type Type Clinicians Facility Department ID 2019-10-25 2019-10-25 Outpatient [id number] 13:06:00 13:06:00 Results This patient has no known results.
--- NOTE | 2019-11-04 07:18 | EDPHYS ---
Physician Documentation [facility] Name: Reji Sheriff Age: 24 yrs Sex: Male : 1995 Arrival Date: 11/04/2019 Time: 07:09 Bed Waiting Private MD: Yogesh Durbin R ED Physician Buddy Edge HPI: 11/03 07:26 This 24 yrs old Male presents to ER via Ambulatory with complaints of Rash. kb 07:26 The patient's rash thought to be caused by an unknown cause. The rash is located on the kb body diffusely. The rash can be described as papular. Onset: The symptoms/episode began/occurred 1 week(s) ago. Associated signs and symptoms: Pertinent positives: itching, Pertinent negatives: burning sensation, difficulty breathing, fever, nausea, Pain swelling of lips, swelling of throat, swelling of tongue, vomiting, wheezing. Severity of symptoms: At their worst the symptoms were moderate in the emergency department the symptoms are unchanged. Treatment given at home: Benadryl. The patient has experienced similar episodes in the past, a few times. The patient has not recently seen a physician. Mother reports pt has had a rash for over a week and has been complaining of itching. States he has had similar rashes before that went away after zyrtec, but he hasn't tried that yet. No one else has a rash in the household. . Historical: - Allergies: 07:15 Zyrtec; hb - PMHx: 07:13 Deaf; hb - PSHx: 07:13 right hand surgery; hb - Immunization history:: Adult Immunizations up to date. - Social history:: Smoking status: Patient denies any tobacco usage or history of. ROS: 07:25 Constitutional: Negative for fever, chills, and weight loss, Cardiovascular: Negative kb for chest pain, palpitations, and edema, Respiratory: Negative for shortness of breath, cough, wheezing, and pleuritic chest pain, Abdomen/GI: Negative for abdominal pain, nausea, vomiting, diarrhea, and constipation, Back: Negative for injury and pain, MS/Extremity: Negative for injury and deformity, Neuro: Negative for headache, weakness, numbness, tingling, and seizure. 07:25 Skin: Positive for rash, diffusely. Exam: 07:25 Constitutional: This is a well developed, well nourished patient who is awake, alert, kb and in no acute distress. Head/Face: Normocephalic, atraumatic. ENT: Nares patent. No nasal discharge, no septal abnormalities noted. Tympanic membranes are normal and external auditory canals are clear. Oropharynx with no redness, swelling, or masses, exudates, or evidence of obstruction, uvula midline. Mucous membranes moist. Neck: Trachea midline, no thyromegaly or masses palpated, and no cervical lymphadenopathy. Supple, full range of motion without nuchal rigidity, or vertebral point tenderness. No Meningismus. Chest/axilla: Normal chest wall appearance and motion. Nontender with no deformity. No lesions are appreciated. Cardiovascular: Regular rate and rhythm with a normal S1 and S2. No gallops, murmurs, or rubs. Normal PMI, no JVD. No pulse deficits. Respiratory: Lungs have equal breath sounds bilaterally, clear to auscultation and percussion. No rales, rhonchi or wheezes noted. No increased work of breathing, no retractions or nasal flaring. Abdomen/GI: Soft, non-tender, with normal bowel sounds. No distension or tympany. No guarding or rebound. No evidence of tenderness throughout. MS/ Extremity: Pulses equal, no cyanosis. Neurovascular intact. Full, normal range of motion. Neuro: Awake and alert, GCS 15, oriented to person, place, time, and situation. Cranial nerves II-XII grossly intact. Motor strength 5/5 in all extremities. Sensory grossly intact. Cerebellar exam normal. Normal gait. 07:25 Skin: rash can be described as nonspecific, and is diffusely located. Vital Signs: 07:13 BP 110 / 70; Pulse 74; Resp 16; Pulse Ox 100% ; Pain 0/10; hb MDM: 07:17 Patient medically screened. kb 07:20 Data reviewed: vital signs, nurses notes. Data interpreted: Pulse oximetry: on room air kb is 100 %. Interpretation: normal. Counseling: I had a detailed discussion with the patient and/or guardian regarding: the historical points, exam findings, and any diagnostic results supporting the discharge/admit diagnosis, the need for outpatient follow up, a family practitioner, to return to the emergency department if symptoms worsen or persist or if there are any questions or concerns that arise at home. Administered Medications: No medications were administered Disposition: 19:03 Co-signature as Attending Physician, Buddy Edge MD. jl Disposition: 11/04/19 07:17 Discharged to Home. Impression: Rash and other nonspecific skin eruption. - Condition is Stable. - Discharge Instructions: Rash, [id number]. - Prescriptions for Elimite 5 % Topical Cream - apply 1 application by TOPICAL route one time Wash after 12 hours.; 60 gram. Prednisone 20 mg Oral Tablet - take 1 tablet by ORAL route once daily for 5 days; 5 tablet. - Medication Reconciliation Form, Thank You Letter, Antibiotic Education, Prescription Opioid Use form. - Follow up: Emergency Department; When: As needed; Reason: Worsening of condition. Follow up: Private Physician; When: 2 - 3 days; Reason: Recheck today's complaints, Continuance of care, Re-evaluation by your physician. Signatures: Vangie Neil, DIRECTOR OF PROMOTIONSBuddy Parikh MD MD pkl Baxter, Heather, RN RN Corrections: (The following items were deleted from the chart) 07:15 07:13 Allergies: No Known Allergies; hb hb 07:15 07:13 Home Meds: None; hb hb 07:28 07:25 Constitutional: This is a well developed, well nourished patient who is awake, kb alert, and in no acute distress. Head/Face: Normocephalic, atraumatic. Chest/axilla: Normal chest wall appearance and motion. Nontender with no deformity. No lesions are appreciated. Cardiovascular: Regular rate and rhythm with a normal S1 and S2. No gallops, murmurs, or rubs. Normal PMI, no JVD. No pulse deficits. Respiratory: Lungs have equal breath sounds bilaterally, clear to auscultation and percussion. No rales, rhonchi or wheezes noted. No increased work of breathing, no retractions or nasal flaring. Abdomen/GI: Soft, non-tender, with normal bowel sounds. No distension or tympany. No guarding or rebound. No evidence of tenderness throughout. MS/ Extremity: Pulses equal, no cyanosis. Neurovascular intact. Full, normal range of motion. Neuro: Awake and alert, GCS 15, oriented to person, place, time, and situation. Cranial nerves II-XII grossly intact. Motor strength 5/5 in all extremities. Sensory grossly intact. Cerebellar exam normal. Normal gait. kb 07:31 07:17 11/04/2019 07:17 Discharged to Home. Impression: Rash and other nonspecific skin hb eruption. Condition is Stable. Forms are Medication Reconciliation Form, Thank You Letter, Antibiotic Education, Prescription Opioid Use. Follow up: Emergency Department; When: As needed; Reason: Worsening of condition. Follow up: Private Physician; When: 2 - 3 days; Reason: Recheck today's complaints, Continuance of care, Re-evaluation by your physician. kb
--- NOTE | 2019-11-04 07:18 | ER ---
Nurse's Notes [facility] Name: Reji Sheriff Age: 24 yrs Sex: Male : 1995 Arrival Date: 11/04/2019 Time: 07:09 Bed Waiting Private MD: Yogesh Durbin R Diagnosis: Rash and other nonspecific skin eruption Presentation: 11/03 07:11 Chief complaint: Diffuse itchy rash x 1 week, unrelieved by Zyrtec. Coronavirus screen: hb At this time, the client does not indicate any symptoms associated with coronavirus-19. Ebola Screen: No symptoms or risks identified at this time. Initial Sepsis Screen: Does the patient meet any 2 criteria? No. Patient's initial sepsis screen is negative. Does the patient have a suspected source of infection? No. Patient's initial sepsis screen is negative. Risk Assessment: Do you want to hurt yourself or someone else? Patient reports no desire to harm self or others. Onset of symptoms was October 29, 2019. 07:11 Method Of Arrival: Ambulatory hb 07:11 Acuity: VIVEK 4 hb Triage Assessment: 07:13 General: Appears in no apparent distress. Behavior is calm, cooperative. Pain: Denies hb pain. EENT: No signs and/or symptoms were reported regarding the EENT system. Neuro: Level of Consciousness is awake, alert, obeys commands, Oriented to person, place, time, situation. Cardiovascular: Patient's skin is warm and dry. Respiratory: Respiratory effort is even, unlabored, Respiratory pattern is regular, symmetrical. GI: No signs and/or symptoms were reported involving the gastrointestinal system. : No signs and/or symptoms were reported regarding the genitourinary system. Derm: Rash noted that is macular. Musculoskeletal: No signs and/or symptoms reported regarding the musculoskeletal system. Historical: - Allergies: 07:15 Zyrtec; hb - PMHx: 07:13 Deaf; hb - PSHx: 07:13 right hand surgery; hb - Immunization history:: Adult Immunizations up to date. - Social history:: Smoking status: Patient denies any tobacco usage or history of. Screenin:14 Abuse screen: Denies threats or abuse. Denies injuries from another. Nutritional hb screening: No deficits noted. Tuberculosis screening: No symptoms or risk factors identified. Fall Risk None identified. Assessment: 07:14 General: see triage. hb Vital Signs: 07:13 BP 110 / 70; Pulse 74; Resp 16; Pulse Ox 100% ; Pain 0/10; hb ED Course: 07:09 Patient arrived in ED. es 07:09 Yogesh Durbin MD is Private Physician. es 07:10 Vangie Neil FNP-C is [facility]. kb 07:10 Buddy Edge MD is Attending Physician. kb 07:12 Triage completed. hb 07:14 Arm band placed on. hb 07:14 Patient has correct armband on for positive identification. hb 07:14 No provider procedures requiring assistance completed. Patient did not have IV access hb during this emergency room visit. 07:31 Torri Wheeler, RN is Primary Nurse. hb Administered Medications: No medications were administered Outcome: 07:17 Discharge ordered by MD. kb 07:31 Discharged to home ambulatory, with family. hb 07:31 Condition: stable 07:31 Discharge instructions given to patient, family, Instructed on discharge instructions, follow up and referral plans. medication usage, Demonstrated understanding of instructions, follow-up care, medications, Prescriptions given X 2. 07:31 Patient left the ED. hb Signatures: Vangie Neil FNP-C FNP-Joselin Clancy Heather, RN RN hb Corrections: (The following items were deleted from the chart) 07:15 07:13 Allergies: No Known Allergies; hb hb 07:15 07:13 Home Meds: None; hb hb
[2019-11-04 07:36] VITALS: BP 110/70; O2SAT 100
== END 2019-11-04 07:31 | disposition home or self-care (01) ==
LOC: ER 07:05
DX: R21 Rash and other nonspecific skin eruption (principal)
CPT/HCPCS: 99281

== ENCOUNTER 2020-04-04 11:31 | Emergency (ER) | payer BC ==
--- OUTSIDE RECORDS SUMMARY | 2020-04-04 11:33 | XMS REPORT | Continuity of Care Document ---
:1995 Author Organization [facility] t Address [address] [place] [address] Dr. Turner [address] [place] [id number] Care Team Providers Name Role Phone Unavailable [...]
[2020-04-04] MEDS ORDERED: LIDOCAINE VISCOUS 2% SOLN 15 ML UDC ONE (13:52)
[2020-04-04] MEDS ORDERED: MAGNES/ALUMIN/SIMET 30ML UCUP ONE (13:52)
--- NOTE | 2020-04-04 14:39 | EDPHYS ---
Physician Documentation [facility] Name: Reji Sheriff Age: 25 yrs Sex: Male : 1995 Arrival Date: 04/04/2020 Time: 11:32 Bed Waiting Private MD: ED Physician Jose Eduardo Lilly HPI: 04/04 14:40 This 25 yrs old Male presents to ER via Ambulatory with complaints of Sore kb Throat. 14:40 The patient presents with sore throat. The patient describes throat pain as constant. kb Onset: The symptoms/episode began/occurred yesterday. Severity of symptoms: At their worst the symptoms were mild, moderate, in the emergency department the symptoms are unchanged. Modifying factors: The symptoms are alleviated by nothing, the symptoms are aggravated by swallowing, The patient has had contact with sick. Associated signs and symptoms: Pertinent positives: Sore throat. The patient has not experienced similar symptoms in the past. The patient has not recently seen a physician. Pt report sore throat since yesterday. Requests COVID test. Historical: - Allergies: 12:05 No Known Allergies; jl7 - Home Meds: 12:05 Zyrtec Oral [Active]; uknown seizure med [Active]; jl7 - PMHx: 12:05 Deaf; Seizures; jl7 - PSHx: 12:05 right hand surgery; jl7 - Immunization history:: Adult Immunizations not up to date. - Social history:: Smoking status: Patient denies any tobacco usage or history of. ROS: 14:39 Constitutional: Negative for fever, chills, and weight loss, Cardiovascular: Negative kb for chest pain, palpitations, and edema, Respiratory: Negative for shortness of breath, cough, wheezing, and pleuritic chest pain, Abdomen/GI: Negative for abdominal pain, nausea, vomiting, diarrhea, and constipation, MS/Extremity: Negative for injury and deformity, Skin: Negative for injury, rash, and discoloration, Neuro: Negative for headache, weakness, numbness, tingling, and seizure. 14:39 ENT: Positive for sore throat. Exam: 14:39 Constitutional: This is a well developed, well nourished patient who is awake, alert, kb and in no acute distress. Head/Face: Normocephalic, atraumatic. Chest/axilla: Normal chest wall appearance and motion. Nontender with no deformity. No lesions are appreciated. Cardiovascular: Regular rate and rhythm with a normal S1 and S2. No gallops, murmurs, or rubs. Normal PMI, no JVD. No pulse deficits. Respiratory: Lungs have equal breath sounds bilaterally, clear to auscultation and percussion. No rales, rhonchi or wheezes noted. No increased work of breathing, no retractions or nasal flaring. Abdomen/GI: Soft, non-tender, with normal bowel sounds. No distension or tympany. No guarding or rebound. No evidence of tenderness throughout. Skin: Warm, dry with normal turgor. Normal color with no rashes, no lesions, and no evidence of cellulitis. MS/ Extremity: Pulses equal, no cyanosis. Neurovascular intact. Full, normal range of motion. Neuro: Awake and alert, GCS 15, oriented to person, place, time, and situation. Cranial nerves II-XII grossly intact. Motor strength 5/5 in all extremities. Sensory grossly intact. Cerebellar exam normal. Normal gait. 14:39 ENT: Posterior pharynx: erythema, that is moderate. Vital Signs: 12:02 BP 127 / 77; Pulse 95; Resp 17; Temp 98.3; Pulse Ox 99% ; Weight 52.16 kg; Pain 5/10; jl7 MDM: 12:04 Patient medically screened. kb 14:40 Data reviewed: vital signs, nurses notes. Data interpreted: Pulse oximetry: on room air kb is 99 %. Interpretation: normal. Counseling: I had a detailed discussion with the patient and/or guardian regarding: the historical points, exam findings, and any diagnostic results supporting the discharge/admit diagnosis, lab results, the need for outpatient follow up, a family practitioner, to return to the emergency department if symptoms worsen or persist or if there are any questions or concerns that arise at home. 04/04 12:04 Order name: Strep; Complete Time: 14:38 kb 04/04 12:04 Order name: COVID-19 kb 04/04 14:57 Order name: Throat Culture EDMS Administered Medications: 13:40 Drug: GI Cocktail without - (Maalox Suspension 30 ml, Lidocaine Liquid 2 % 15 jl7 ml) Route: PO; Disposition: 18:07 Co-signature as Attending Physician, Jose Eduardo Lilly MD. rn Disposition: 04/04/20 14:39 Discharged to Home. Impression: Pain in throat. - Condition is Stable. - Discharge Instructions: Sore Throat, [id number]. - Medication Reconciliation Form, Thank You Letter, Antibiotic Education, Prescription Opioid Use form. - Follow up: Emergency Department; When: As needed; Reason: Worsening of condition. Follow up: Private Physician; When: 2 - 3 days; Reason: Recheck today's complaints, Continuance of care, Re-evaluation by your physician. Signatures: Dispatcher [employer] EDMA Vangie Neil, AGILE DEVELOPER-C AGILE DEVELOPER-Ckb Jose Eduardo Lilly MD MD rn Mary Kay RN RN jl7 Corrections: (The following items were deleted from the chart) 15:12 14:39 04/04/2020 14:39 Discharged to Home. Impression: Pain in throat. Condition is jl7 Stable. Forms are Medication Reconciliation Form, Thank You Letter, Antibiotic Education, Prescription Opioid Use. Follow up: Emergency Department; When: As needed; Reason: Worsening of condition. Follow up: Private Physician; When: 2 - 3 days; Reason: Recheck today's complaints, Continuance of care, Re-evaluation by your physician. kb
--- NOTE | 2020-04-04 14:39 | ER ---
Nurse's Notes [facility] Name: Reji Sheriff Age: 25 yrs Sex: Male : 1995 Arrival Date: 04/04/2020 Time: 11:32 Bed Waiting Private MD: Diagnosis: Pain in throat Presentation: 04/04 12:02 Chief complaint: Parent and/or Guardian states: Sore throat x 2 days, denies cough, jl7 denies fever. Coronavirus screen: Client denies travel out of the [place] in the last 14 days. shortness of breath, Client presents with at least one sign or symptom that may indicate coronavirus-19. Standard/surgical mask placed on the client. Provider contacted for isolation considerations. The client denies any previous COVID testing. Ebola Screen: No symptoms or risks identified at this time. Initial Sepsis Screen: Does the patient meet any 2 criteria? No. Patient's initial sepsis screen is negative. Does the patient have a suspected source of infection? No. Patient's initial sepsis screen is negative. Risk Assessment: Do you want to hurt yourself or someone else? Patient reports no desire to harm self or others. Onset of symptoms was April 02, 2020. Care prior to arrival: None. 12:02 Method Of Arrival: Ambulatory jl7 12:02 Acuity: VIVEK 4 jl7 Triage Assessment: 12:05 General: Appears in no apparent distress. uncomfortable, Behavior is calm, cooperative, jl7 appropriate for age. Pain: Complains of pain in sore throat. EENT: Throat is reddened. Historical: - Allergies: 12:05 No Known Allergies; jl7 - Home Meds: 12:05 Zyrtec Oral [Active]; uknown seizure med [Active]; jl7 - PMHx: 12:05 Deaf; Seizures; jl7 - PSHx: 12:05 right hand surgery; jl7 - Immunization history:: Adult Immunizations not up to date. - Social history:: Smoking status: Patient denies any tobacco usage or history of. Screenin:44 Abuse screen: Denies threats or abuse. Denies injuries from another. Nutritional jl7 screening: No deficits noted. Tuberculosis screening: No symptoms or risk factors identified. Fall Risk None identified. Assessment: 12:30 General: Appears in no apparent distress. uncomfortable, Behavior is calm, cooperative, jl7 appropriate for age. Pain: Complains of pain in sore throat Pain currently is 5 out of 10 on a pain scale. Neuro: Level of Consciousness is awake, alert, obeys commands, Oriented to person, place, time, situation. Cardiovascular: Patient's skin is warm and dry. Respiratory: Airway is patent Respiratory effort is even, unlabored, Respiratory pattern is regular, symmetrical, not auscultated. EENT: Throat is reddened. Derm: Skin is pink, warm \T\ dry. 13:44 Reassessment: Patient appears in no apparent distress at this time. No changes from jl7 previously documented assessment. Patient and/or family updated on plan of care and expected duration. Pain level reassessed. Patient is alert, oriented x 3, equal unlabored respirations, skin warm/dry/pink. Vital Signs: 12:02 BP 127 / 77; Pulse 95; Resp 17; Temp 98.3; Pulse Ox 99% ; Weight 52.16 kg; Pain 5/10; jl7 ED Course: 11:32 Patient arrived in ED. as 12:02 Mary Kay, SHANTA is Primary Nurse. jl7 12:03 Vangie Neil FNP-C is PHCP. kb 12:03 Jose Eduardo Lilly MD is Attending Physician. kb 12:04 Triage completed. jl7 12:05 Arm band placed on right wrist. Patient placed in waiting room, Patient notified of jl7 wait time. 12:30 COVID swab sent to lab. Flu and/or RSV swab sent to lab. jl7 13:44 Patient has correct armband on for positive identification. jl7 15:12 No provider procedures requiring assistance completed. Patient did not have IV access jl7 during this emergency room visit. Administered Medications: 13:40 Drug: GI Cocktail without - (Maalox Suspension 30 ml, Lidocaine Liquid 2 % 15 jl7 ml) Route: PO; Outcome: 14:39 Discharge ordered by . kb 15:12 Discharged to home ambulatory, with family. jl7 15:12 Condition: stable 15:12 Discharge instructions given to patient, family, Instructed on discharge instructions, follow up and referral plans. Demonstrated understanding of instructions, follow-up care. 15:12 Patient left the ED. jl7 Addendum: 04/05/2020 19:24 Addendum: COVID-19 Result: Negative result given to RN to notify pt. Attempted to i w contact pt regarding negative COVID-19 swab results. Left voice mail. 19:26 Addendum: COVID-19 Result: Negative result given to RN to notify pt. Notified pt of i w negative COVID 19 swab results. Pt advised that even with a negative test result they should remain in isolation until symptom free for 3 days without medication. Pt also advised to return to the ED for worsening symptoms. Signatures: Vangie Neil, CAN CLOSING MACHINE TENDER-C CAN CLOSING MACHINE TENDER-Josefina Anderson Irene, RN SHANTA iw Mary Kay RN RN jl7
[2020-04-04 15:25] VITALS: BP 127/77; TEMP 98.3; O2SAT 99
== END 2020-04-04 15:12 | disposition home or self-care (01) ==
LOC: ER 11:31
DX: J02.9 Acute pharyngitis, unspecified (principal); Z20.822 Contact with and (suspected) exposure to COVID-19
CPT/HCPCS: 87070; 87081; 99283; U0002

== ENCOUNTER 2020-07-07 11:28 | Emergency (ER) | payer BC ==
--- OUTSIDE RECORDS SUMMARY | 2020-07-07 11:30 | XMS REPORT | Continuity of Care Document ---
:1995 Author Organization [facility] Address [address] [place] [address] Dr. Turner [address] [place] [id number] Care Team Providers Name Role Phone Unavailable [...]
--- NOTE | 2020-07-07 13:00 | ER ---
Nurse's Notes [facility] Name: Reji Sheriff Age: 25 yrs Sex: Male : 1995 Arrival Date: 07/07/2020 Time: 11:30 Bed 12 Private MD: Diagnosis: Unspecified otitis externa, left ear Presentation: 07/07 11:35 Chief complaint: Patient states: L ear pain since last night. Denies drainage. Denies ca1 fever. Denies sore throat. Coronavirus screen: Client denies travel out of the [place] in the last 14 days. At this time, the client does not indicate any symptoms associated with coronavirus-19. Ebola Screen: Patient negative for fever greater than or equal to 101.5 degrees Fahrenheit, and additional compatible Ebola Virus Disease symptoms Patient denies exposure to infectious person. Patient denies travel to an Ebola-affected area in the 21 days before illness onset. No symptoms or risks identified at this time. Initial Sepsis Screen: Does the patient meet any 2 criteria? No. Patient's initial sepsis screen is negative. Does the patient have a suspected source of infection? No. Patient's initial sepsis screen is negative. Risk Assessment: Do you want to hurt yourself or someone else? Patient reports no desire to harm self or others. Onset of symptoms was July 07, 2020. 11:35 Method Of Arrival: Ambulatory ca1 11:35 Acuity: VIVEK 4 ca1 Historical: - Allergies: 11:37 No Known Allergies; ca1 - PMHx: 11:37 Deaf; Seizures; ca1 - PSHx: 11:37 right hand surgery; ca1 - Immunization history:: Flu vaccine is up to date. - Social history:: Smoking status: Patient denies any tobacco usage or history of. Screenin:41 Abuse screen: Denies threats or abuse. Denies injuries from another. Nutritional ca1 screening: No deficits noted. Tuberculosis screening: No symptoms or risk factors identified. Fall Risk None identified. Assessment: 12:41 General: Appears in no apparent distress. comfortable, Behavior is calm, cooperative, ca1 appropriate for age. Pain: Complains of pain in left ear Pain currently is 6 out of 10 on a pain scale. Neuro: Level of Consciousness is awake, alert, obeys commands, Oriented to person, place, time, situation. EENT: Tympanic membrane Ear canal. Derm: Skin is intact, is healthy with good turgor, Skin is pink, warm \T\ dry. 12:41 Musculoskeletal: Circulation, motion, and sensation intact. Capillary refill < 3 ca1 seconds. 13:02 Reassessment: Patient appears in no apparent distress at this time. Patient is alert, ca1 oriented x 3, equal unlabored respirations, skin warm/dry/pink. Vital Signs: 11:35 BP 124 / 78; Pulse 85; Resp 16 S; Temp 97.5(TE); Pulse Ox 99% on R/A; Weight 54.43 kg ca1 (R); Height 5 ft. 3 in. (160.02 cm) (R); Pain 6/10; 13:02 BP 115 / 69; Pulse 76; Resp 16 S; Pulse Ox 99% on R/A; ca1 11:35 Body Mass Index 21.26 (54.43 kg, 160.02 cm) ca1 ED Course: 11:30 Patient arrived in ED. as 11:37 Triage completed. ca1 11:37 Arm band placed on right wrist. ca1 12:39 Vangie Neil FNP-C is PHCP. kb 12:39 Nic Jean MD is Attending Physician. kb 12:41 Madelyn Melo RN is Primary Nurse. ca1 12:41 Patient has correct armband on for positive identification. Call light in reach. ca1 13:03 No provider procedures requiring assistance completed. Patient did not have IV access ca1 during this emergency room visit. Administered Medications: No medications were administered Outcome: 12:59 Discharge ordered by MD. kb 13:03 Discharged to home ambulatory, with family. ca1 13:03 Condition: stable 13:03 Discharge instructions given to patient, family, Instructed on discharge instructions, follow up and referral plans. medication usage, Demonstrated understanding of instructions, follow-up care, medications, Prescriptions given X 1. 13:03 Patient left the ED. ca1 Signatures: Vangie Neil FNP-C FNP-Josefina Anderosn as Madelyn Melo, RN RN ca1
--- NOTE | 2020-07-07 13:00 | EDPHYS ---
Physician Documentation [facility] Name: Reji Sheriff Age: 25 yrs Sex: Male : 1995 Arrival Date: 07/07/2020 Time: 11:30 Bed 12 Private MD: ED Physician Nic Jean HPI: 07/07 14:45 This 25 yrs old Male presents to ER via Ambulatory with complaints of Ear Pain.kb 14:45 The patient presents with pain. The complaints affect the left ear. The patient has not kb experienced similar symptoms in the past. The patient has not recently seen a physician. 14:46 Onset: The symptoms/episode began/occurred last night. Modifying factors: The symptoms kb are alleviated by nothing, the symptoms are aggravated by nothing. Associated signs and symptoms: The patient has no apparent associated signs or symptoms. Severity of symptoms: At their worst the symptoms were mild in the emergency department the symptoms are unchanged. Historical: - Allergies: 11:37 No Known Allergies; ca1 - PMHx: 11:37 Deaf; Seizures; ca1 - PSHx: 11:37 right hand surgery; ca1 - Immunization history:: Flu vaccine is up to date. - Social history:: Smoking status: Patient denies any tobacco usage or history of. ROS: 14:44 Constitutional: Negative for fever, chills, and weight loss, Respiratory: Negative for kb shortness of breath, cough, wheezing, and pleuritic chest pain, MS/Extremity: Negative for injury and deformity, Skin: Negative for injury, rash, and discoloration, Neuro: Negative for headache, weakness, numbness, tingling, and seizure. 14:44 ENT: Positive for ear pain. Exam: 14:45 Constitutional: This is a well developed, well nourished patient who is awake, alert, kb and in no acute distress. Head/Face: Normocephalic, atraumatic. Respiratory: Respirations even and unlabored. No increased work of breathing, no retractions or nasal flaring. Skin: Warm, dry with normal turgor. Normal color. MS/ Extremity: Pulses equal, no cyanosis. Neurovascular intact. Full, normal range of motion. Neuro: Awake and alert, GCS 15, oriented to person, place, time, and situation. Moves all extremities. Normal gait. 14:45 ENT: External ear(s): are unremarkable, Ear canal(s): swelling, that is moderate, of the left canal, TM's: are normal. Vital Signs: 11:35 BP 124 / 78; Pulse 85; Resp 16 S; Temp 97.5(TE); Pulse Ox 99% on R/A; Weight 54.43 kg ca1 (R); Height 5 ft. 3 in. (160.02 cm) (R); Pain 6/10; 13:02 BP 115 / 69; Pulse 76; Resp 16 S; Pulse Ox 99% on R/A; ca1 11:35 Body Mass Index 21.26 (54.43 kg, 160.02 cm) ca1 MDM: 12:40 Patient medically screened. kb 14:44 Data reviewed: vital signs, nurses notes. Data interpreted: Pulse oximetry: on room air kb is 99 %. Interpretation: normal. Counseling: I had a detailed discussion with the patient and/or guardian regarding: the historical points, exam findings, and any diagnostic results supporting the discharge/admit diagnosis, the need for outpatient follow up, a family practitioner, to return to the emergency department if symptoms worsen or persist or if there are any questions or concerns that arise at home. Administered Medications: No medications were administered Disposition: 07/08 08:29 Co-signature as Attending Physician, Nic Jean MD I agree with the assessment and se plan of care. Disposition: 07/07/20 12:59 Discharged to Home. Impression: Unspecified otitis externa, left ear. - Condition is Stable. - Discharge Instructions: Otitis Externa, [id number], Ear Drops, Adult, [id number]. - Prescriptions for Ciprodex 0.3- 0.1 % Otic Drops, Suspension - instill 4 drop by OTIC route every 12 hours for 7 days , for ears ONLY; 1 Container. - Medication Reconciliation Form, Thank You Letter, Antibiotic Education, Prescription Opioid Use, Work release form form. - Follow up: Emergency Department; When: As needed; Reason: Worsening of condition. Follow up: Private Physician; When: 2 - 3 days; Reason: Recheck today's complaints, Continuance of care, Re-evaluation by your physician. Signatures: Vangie Neil, CHIEF OF POLICE-C CHIEF OF POLICE-Nic Webb MD MD cha Acob, Cheryl, RN RN ca1 Corrections: (The following items were deleted from the chart) 07/07 13:03 12:59 07/07/2020 12:59 Discharged to Home. Impression: Unspecified otitis externa, left ca1 ear. Condition is Stable. Forms are Medication Reconciliation Form, Thank You Letter, Antibiotic Education, Prescription Opioid Use. Follow up: Emergency Department; When: As needed; Reason: Worsening of condition. Follow up: Private Physician; When: 2 - 3 days; Reason: Recheck today's complaints, Continuance of care, Re-evaluation by your physician. kb
[2020-07-07 13:09] VITALS: TEMP 97.5; O2SAT 99
[2020-07-07 13:11] VITALS: BP 115/69
== END 2020-07-07 13:03 | disposition home or self-care (01) ==
LOC: ER 11:28
DX: H60.92 Unspecified otitis externa, left ear (principal)
CPT/HCPCS: 99282

== ENCOUNTER 2021-03-28 19:15 | Emergency (ER) | payer BC ==
--- OUTSIDE RECORDS SUMMARY | 2021-03-28 19:19 | XMS REPORT | Continuity of Care Document ---
:1995 Author Organization [facility] t Address [address] [place] [address] [address] [place] [address] Care Team Providers Name Role Phone Elliott LEON Attending Clinician Unavailable Problems This patient has no known problems. Allergies, Adverse Reactions, Alerts This patient has no known allergies or adverse reactions. Medications This patient has no known medications. Procedures This patient has no known procedures. Encounters Start End Encounter Admission Attending Care Care Encounter Source Date/Time Date/Time Type Type Clinicians Facility Department ID 2019-10-25 2019-10-25 Outpatient [facility], [id number] 13:06:00 13:06:00 [facility] Results This patient has no known results.
[2021-03-29 01:27] LABS: Urine Blood Trace-lysed (Negative); Urine Glucose Negative (Negative); Urine Protein Negative (Negative)
[2021-03-29] MEDS ORDERED: MORPHINE 2 MG/ML SYR ONE (01:37)
[2021-03-29] MEDS ORDERED: ONDANSETRON 4 MG/2 ML VIAL ONE (01:38)
[2021-03-29] MEDS ORDERED: NA CHLORIDE 0.9% 1,000 ML ONE (01:38)
[2021-03-29] MEDS ORDERED: FAMOTIDINE 20 MG/2 ML VIAL IV ONE (01:38)
[2021-03-29 01:48] LABS: Absolute Lymphocytes (CBC) 2.2 K/uL (0.7-4.9); Hematocrit 52.2 % (39.6-49.0); Lymphocytes % 45.1 % (15.3-44.8); MPV 7.5 fL (7.6-11.3)
[2021-03-29 02:06] LABS: ALT/SGPT 52 U/L (12-78); AST/SGOT 45 U/L (15-37); Albumin 4.5 g/dL (3.4-5.0); Alkaline Phosphatase 119 U/L (45-117); BUN Blood Urea Nitrogen 9 mg/dL (7-18); Bicarbonate 26 mmol/L (21-32); Bilirubin Direct < 0.1 mg/dL (0-0.2); Bilirubin Total 0.5 mg/dL (0.2-1.0); Glucose Level 94 mg/dL (74-106); Lipase 185 U/L (73-393); Potassium 3.5 mmol/L (3.5-5.1); Protein, Total 11.1 g/dL (6.4-8.2); Sodium Level 138 mmol/L (136-145)
[2021-03-29 02:07] LABS: Magnesium 2.3 mg/dL (1.8-2.4)
--- NOTE | 2021-03-29 03:28 | ER ---
Nurse's Notes [facility] Name: Reji Sheriff Age: 26 yrs Sex: Male : 1995 Arrival Date: 03/28/2021 Time: 19:17 Bed 18 Private MD: Diagnosis: Epigastric pain Presentation: 03/28 21:24 Chief complaint: Parent and/or Guardian states: He complaining of upper belly pain that vc1 is continuous. My called me at work and said about 1:30- 2 oclock the pain started. Coronavirus screen: Vaccine status: Patient reports receiving the 2nd dose of the covid vaccine. At this time, the client does not indicate any symptoms associated with coronavirus-19. Ebola Screen: No symptoms or risks identified at this time. Initial Sepsis Screen: Does the patient meet any 2 criteria? No. Patient's initial sepsis screen is negative. Does the patient have a suspected source of infection? No. Patient's initial sepsis screen is negative. Risk Assessment: Do you want to hurt yourself or someone else? Patient reports no desire to harm self or others. Onset of symptoms was March 28, 2021 at 13:30. 21:24 Method Of Arrival: Ambulatory vc1 21:24 Acuity: VIVEK 4 vc1 Triage Assessment: 21:29 General: Appears in no apparent distress. uncomfortable, Behavior is calm, cooperative, vc1 appropriate for age. Pain: Complains of pain in epigastric area Pain currently is 5 out of 10 on a pain scale. at worst was 9 out of 10 on a pain scale. GI: Reports upper abdominal pain, normal bowel habits. Historical: - Allergies: 03/29 00:59 No Known Allergies; kd3 - Home Meds: 00:59 None [Active]; kd3 - PMHx: 00:59 Deaf; Seizures; kd3 - PSHx: 00:59 cochlear implant; kd3 - Immunization history:: Adult Immunizations up to date, Client reports receiving the 2nd dose of the Covid vaccine, Flu vaccine is not up to date. It has been more than one year since last vaccine. - Social history:: Smoking status: Patient denies any tobacco usage or history of. Screenin:03 Abuse screen: Denies threats or abuse. Denies injuries from another. Nutritional kd3 screening: No deficits noted. Tuberculosis screening: No symptoms or risk factors identified. Fall Risk None identified. Assessment: 01:03 GI: Bowel sounds present X 4 quads. Abd is soft and non tender X 4 quads. pt states kd3 that the pain is not worse when palpated. Vital Signs: 03/28 21:24 BP 141 / 90; Pulse 88; Resp 20; Temp 97.6; Pulse Ox 98% on R/A; Weight 54.43 kg; Height vc1 5 ft. 2 in. (157.48 cm); Pain 5/10; 03/29 00:59 BP 125 / 90; Pulse 66; Resp 18; Temp 97.7; Pulse Ox 98% on R/A; kd3 03/28 21:24 Body Mass Index 21.95 (54.43 kg, 157.48 cm) vc1 ED Course: 03/28 19:17 Patient arrived in ED. kc5 21:29 Triage completed. vc1 03/29 00:48 Kenia Mendoza, SHANTA is Primary Nurse. kd3 00:53 Nic De La Vega PA is PHCP. cp 00:53 Buddy Edge MD is Attending Physician. cp 01:03 Arm band placed on right wrist. kd3 01:04 Patient has correct armband on for positive identification. Call light in reach. Side kd3 rails up X2. 01:46 Magnesium Sent. kd3 01:46 Basic Metabolic Panel Sent. kd3 01:46 CBC with Diff Sent. kd3 01:46 Hepatic Function Sent. kd3 01:46 Lipase Sent. kd3 01:46 Magnesium Sent. kd3 02:49 CT Abd/Pelvis - IV Contrast Only In Process Unspecified. EDMS 03:26 Ronnie Gibson MD is Referral Physician. cp 04:06 No provider procedures requiring assistance completed. IV discontinued, intact, kd3 bleeding controlled, No redness/swelling at site. Administered Medications: 01:45 Drug: Pepcid (famotidine) 20 mg Route: IVP; Site: right antecubital; kd3 01:45 Not Given (Patient Refused): morphine 2 mg IVP once; (PAIN>8) RASS on ADMN: Combtv4, kd3 Very Agttd3, Agttd2, Rstlss1, AlertClm0, Drwsy-1, LtSdtn-2, ModSdtn-3, DpSdtn-4, UnArsble-5 x2 01:45 Drug: NS 0.9% 1000 ml Route: IV; Rate: 1 bolus; Site: right antecubital; kd3 01:46 Not Given (Patient Refused): Zofran (Ondansetron) 4 mg IVP once; over 2 minutes kd3 04:06 Drug: GI Cocktail without - (Maalox Suspension 30 ml, Lidocaine Liquid 2 % 15 kd3 ml) Route: PO; Outcome: 03:27 Discharge ordered by . tommy 04:06 Discharged to home ambulatory. kd3 04:06 Condition: stable 04:06 Discharge instructions given to patient, family, Instructed on discharge instructions, follow up and referral plans. medication usage, Demonstrated understanding of instructions, follow-up care, medications, Prescriptions given X 2. 04:12 Patient left the ED. kd3 Signatures: Dispatcher [employer] EDMS Nic De La Vega PA PA cp Doucette, Kyli RN RN kd3 Mariah Smith kc5 Yuni Duvall RN RN vc1 Corrections: (The following items were deleted from the chart) 01:02 00:59 Home Meds: uknown seizure med [Inactive]; kd3 kd3 01:02 00:59 Home Meds: Zyrtec Oral [Inactive]; kd3 kd3
--- NOTE | 2021-03-29 03:28 | EDPHYS ---
Physician Documentation [facility] Name: Reji Sheriff Age: 26 yrs Sex: Male : 1995 Arrival Date: 03/28/2021 Time: 19:17 Bed 18 Private MD: ED Physician Buddy Edge HPI: 03/29 01:10 This 26 yrs old Male presents to ER via Ambulatory with complaints of cp Abdominal Pain. 01:10 The patient presents with abdominal pain in the epigastric area. cp 01:10 Onset: The symptoms/episode began/occurred yesterday. cp 01:10 The symptoms do not radiate. Associated signs and symptoms: Pertinent positives: cp nausea, Pertinent negatives: diarrhea, fever, active vomiting. The symptoms are described as squeezing. Father reports patient took OTC tums w/o relief. Historical: - Allergies: 00:59 No Known Allergies; kd3 - Home Meds: 00:59 None [Active]; kd3 - PMHx: 00:59 Deaf; Seizures; kd3 - PSHx: 00:59 cochlear implant; kd3 - Immunization history:: Adult Immunizations up to date, Client reports receiving the 2nd dose of the Covid vaccine, Flu vaccine is not up to date. It has been more than one year since last vaccine. - Social history:: Smoking status: Patient denies any tobacco usage or history of. ROS: 01:15 Constitutional: Negative for body aches, chills, fever, poor PO intake. cp 01:15 Eyes: Negative for injury, pain, redness, and discharge. cp 01:15 ENT: Negative for ear pain, sore throat, difficulty swallowing, difficulty handling secretions. 01:15 Cardiovascular: Negative for chest pain. 01:15 Respiratory: Negative for cough, shortness of breath, wheezing. 01:15 Abdomen/GI: Positive for abdominal pain, nausea, of the epigastric area, Negative for vomiting, diarrhea, constipation. 01:15 Neuro: Negative for altered mental status, headache, weakness. 01:15 All other systems are negative. Exam: 01:20 Constitutional: The patient appears in no acute distress, alert, awake, non-toxic, well cp developed, well nourished. 01:20 Head/Face: Normocephalic, atraumatic. cp 01:20 Eyes: Periorbital structures: appear normal, Conjunctiva: normal, no exudate, no injection, Sclera: no appreciated abnormality, Lids and lashes: appear normal, bilaterally. 01:20 ENT: External ear(s): are unremarkable, Nose: is normal, Mouth: Lips: moist, Oral mucosa: moist, Posterior pharynx: Airway: no evidence of obstruction, patent. 01:20 Chest/axilla: Inspection: normal, Palpation: is normal, no crepitus, no tenderness. 01:20 Cardiovascular: Rate: normal, Rhythm: regular. 01:20 Respiratory: the patient does not display signs of respiratory distress, Respirations: normal, no use of accessory muscles, no retractions, labored breathing, is not present, Breath sounds: are clear throughout, no decreased breath sounds, no stridor, no wheezing. 01:20 Abdomen/GI: Inspection: abdomen appears normal, Bowel sounds: active, all quadrants, Palpation: soft, in all quadrants, moderate abdominal tenderness, in the epigastric area, rebound tenderness, is not appreciated, voluntary guarding, is not appreciated, involuntary guarding, is not appreciated. 01:20 Back: pain, is absent, ROM is normal. Vital Signs: 03/28 21:24 BP 141 / 90; Pulse 88; Resp 20; Temp 97.6; Pulse Ox 98% on R/A; Weight 54.43 kg; Height vc1 5 ft. 2 in. (157.48 cm); Pain 5/10; 03/29 00:59 BP 125 / 90; Pulse 66; Resp 18; Temp 97.7; Pulse Ox 98% on R/A; kd3 03/28 21:24 Body Mass Index 21.95 (54.43 kg, 157.48 cm) vc1 MDM: 00:54 Patient medically screened. cp 02:00 Differential diagnosis: appendicitis, cholecystitis, Cholelithiasis, gastritis, cp non-specific abd pain, pancreatitis, Peptic Ulcer Disease, Perf. Duodenal Ulcer, Perf. Gastric Ulcer. 03:25 Data reviewed: vital signs, nurses notes, lab test result(s), radiologic studies, CT cp scan. 03:25 Counseling: I had a detailed discussion with the patient and/or guardian regarding: the cp historical points, exam findings, and any diagnostic results supporting the discharge/admit diagnosis, lab results, radiology results, to return to the emergency department if symptoms worsen or persist or if there are any questions or concerns that arise at home. Response to treatment: the patient's symptoms have markedly improved after treatment, VSS. Patient reports pain improved with meds. Will discharge to home for continued monitoring. 03/29 01:03 Order name: Basic Metabolic Panel; Complete Time: 02:16 cp 03/29 03:12 Interpretation: Reviewed. 03/29 01:03 Order name: CBC with Diff; Complete Time: 02:16 cp 03/29 02:21 Interpretation: Normal except: RBC 6.00; HCT 52.2; LYM% 45.1; MPV 7.5. cp 03/29 01:03 Order name: Hepatic Function; Complete Time: 02:16 cp 03/29 03:11 Interpretation: Normal except: AST 45; ALK 119; TP 11.1; GLOB 6.6; A/G 0.7. cp 03/29 01:03 Order name: Lipase; Complete Time: 02:16 cp 03/29 01:03 Order name: Magnesium cp 03/29 01:04 Order name: Magnesium; Complete Time: 02:16 EDMS 03/29 03:12 Interpretation: Reviewed. 03/29 01:03 Order name: IV Saline Lock; Complete Time: 01:46 cp 03/29 01:03 Order name: CT Abd/Pelvis - IV Contrast Only cp 03/29 01:26 Order name: Urine Dipstick-Ancillary; Complete Time: 02:16 EDMS 03/29 03:11 Interpretation: Normal except: UBLD Trace-lysed. 03/29 01:03 Order name: Labs collected and sent; Complete Time: 01:46 cp 03/29 01:03 Order name: Urine Dipstick-Ancillary (obtain specimen); Complete Time: 01:46 cp Administered Medications: 01:45 Drug: Pepcid (famotidine) 20 mg Route: IVP; Site: right antecubital; kd3 01:45 Not Given (Patient Refused): morphine 2 mg IVP once; (PAIN>8) RASS on ADMN: Combtv4, kd3 Very Agttd3, Agttd2, Rstlss1, AlertClm0, Drwsy-1, LtSdtn-2, ModSdtn-3, DpSdtn-4, UnArsble-5 x2 01:45 Drug: NS 0.9% 1000 ml Route: IV; Rate: 1 bolus; Site: right antecubital; kd3 01:46 Not Given (Patient Refused): Zofran (Ondansetron) 4 mg IVP once; over 2 minutes kd3 04:06 Drug: GI Cocktail without - (Maalox Suspension 30 ml, Lidocaine Liquid 2 % 15 kd3 ml) Route: PO; Disposition: 06:53 Co-signature as Attending Physician, Buddy Edge MD. pkl Disposition Summary: 03/29/21 03:27 Discharge Ordered Location: Home cp Problem: new cp Symptoms: have improved cp Condition: Stable cp Diagnosis - Epigastric pain cp Followup: cp - With: Ronnie Gibson MD - When: 1 week - Reason: pain and/or symptoms continue Discharge Instructions: - Discharge Summary Sheet cp - Abdominal Pain, Adult cp - Gastroesophageal Reflux Disease, Adult cp Forms: - Medication Reconciliation Form cp - Thank You Letter cp - Antibiotic Education cp - Prescription Opioid Use cp Prescriptions: - Protonix 40 mg Oral Tablet - take 1 tablet by ORAL route once daily; 30 tablet; Refills: 0, Product cp Selection Permitted - Zofran 4 mg Oral Tablet - take 1 tablet by ORAL route every 12 hours As needed; 20 tablet; Refills: 0, cp Product Selection Permitted Signatures: Dispatcher [employer] EDBuddy Crawford MD MD pkl Nic De La Vega PA PA cp Kenia Mendoza, RN RN kd3 Corrections: (The following items were deleted from the chart) 01:02 00:59 Home Meds: uknown seizure med [Inactive]; kd3 kd3 01:02 00:59 Home Meds: Zyrtec Oral [Inactive]; kd3 kd3 01:53 01:45 This 26 yrs old Male presents to ER via Ambulatory with complaints of cp Abdominal Pain. cp 03/30 00:24 03/29 01:10 Father reports patient took OTC tums w/o relief. cp cp
[2021-03-29] MEDS ORDERED: MAGNES/ALUMIN/SIMET 30ML UCUP ONE (03:41)
[2021-03-29] MEDS ORDERED: LIDOCAINE VISCOUS 2% SOLN 15 ML UDC ONE (03:41)
[2021-03-29 04:19] VITALS: O2SAT 98
[2021-03-29 04:20] VITALS: BP 125/90; TEMP 97.7
--- NOTE | 2021-03-29 11:41 | RAD REPORT ---
EXAM DESCRIPTION: CT - Abdomen Pelvis W Contrast - 03/29/2021 6:05 am CLINICAL HISTORY: 26 years, Male, ABD PAIN COMPARISON: None. TECHNIQUE: Contrast-enhanced images of the abdomen and pelvis were performed utilizing 5 mm slice th ickness at 5 mm interval reconstruction from the lung bases to the ischial tuberosities after the adm inistration IV contrast. In addition multiplanar reformats in the coronal and sagittal plane were obtained and reviewed. This exam was performed according to our departmental dose-optimization protocol, which includes auto mated exposure control, adjustment of the mA and/or kV according to patient size and/or use of iterat sola reconstruction technique. FINDINGS: The lung bases demonstrate to be clear. The liver, pancreas, spleen and adrenal glands demonstrate to be unremarkable, no focal lesions are n oted. The gallbladder is contracted with no gross abnormality. The right kidney demonstrate a upper pole moiety deformity perhaps suggesting scarring from vascular insult and/or chronic pyelonephritis. The left kidney demonstrate normal uptake of contrast media. No evidence for nephrolithiasis and/or hydronephrosis. Grossly the unopacified stomach, small bowel and large bowel demonstrate to be within normal limits. There is no evidence for bowel dilatation/or free air. The appendix is normal on axial image 61-6 2. The urinary bladder demonstrate to be unremarkable. The prostate gland is normal. The aorta demon strate to be normal. There is no retroperitoneal lymphadenopathy. There is no ascites. The rest of the soft tissue and bony structures are within normal limits. IMPRESSION: No acute intra-abdominal process. Upper pole cortical deformity right kidney suggesting scarring from vascular insult and/or chronic py elonephritis. Electronically signed by: Marv Pennington MD 03/29/2021 3:02 AM NETWORK ARCHITECT MANAGER Due to temporary technical issues with the PACS/Fluency reporting system, reports are being signed by the in house radiologist without review as a courtesy to ensure prompt reporting. The interpreting r adiologist is fully responsible for the content of the report.
== END 2021-03-29 04:12 | disposition home or self-care (01) ==
LOC: ER 19:15
DX: R10.13 Epigastric pain (principal); R11.0 Nausea
CPT/HCPCS: 85025; 80048; 36415; 83735; 80076; 81003; 83690; 74177; 96374; 99284; Q9967; J2270; J7030; J2405

== ENCOUNTER 2021-08-01 01:27 | Observation (INO) | payer BC ==
--- OUTSIDE RECORDS SUMMARY | 2021-08-01 01:29 | XMS REPORT | Continuity of Care Document ---
:1995 Author Organization [facility] t Address [address] [place] [address] Care Team Providers Name Role Phone Zana AYALA Primary Care Physician CAROLYN Attending Clinician Unavailable Denver MOBLEY Attending Clinician Unavailable Ana Rosa_Domingo Attending Clinician Unavailable Elliott ASENCIO Attending Clinician Unavailable Matt Admitting Clinician Unavailable Payers Payer Name Policy Type Policy Number Effective Date Expiration Date S david [id number] PPO [id number] 2012 00:00:00 Problems This patient has no known problems. Allergies, Adverse Reactions, Alerts This patient has no known allergies or adverse reactions. Social History Social Habit Start Date Stop Date Quantity Comments Source History [facility] Alcohol Comment Exposure to Not sure [facility] SARS-CoV-2 (event) History [facility] Alcohol Std Drinks History [facility] Alcohol Binge Alcohol intake 2021-06-27 2021-06-27 Lifetime [place] [facility] 00:00:00 00:00:00 non-drinker (finding) History [facility] 2021-05-10 2021-05-10 1 [place] [facility] Alcohol Frequency 00:00:00 00:00:00 Sex Assigned At [birth year] [place] [facility] 00:00:00 00:00:00 Smoking Status Start Date Stop Date Source Never smoked tobacco [facility] Medications Ordered Filled Start Stop Current Ordering Indication Dosage Frequency Signature Comments Components Source Medication Medication Date Date Medication? Clinician (SIG) Name Name OXcarbazepi 2021- Yes [id number] 300mg Q.5D Take 1 [place] ne 06-27-08 tablet Health (Trileptal) 00:00: 04:59 (300 mg 300 MG 00 :00 total) by tablet mouth 2 (two) times a day. OXcarbazepi 2021- Yes [id number] 300mg Q.5D Take 1 [place] ne 06-27- tablet Health (Trileptal) 00:00: 04:59 (300 mg 300 MG 00 :00 total) by tablet mouth 2 (two) times a day. OXcarbazepi 2021- Yes [id number] 300mg Q.5D Take 1 [place] ne 06-27 tablet Health (Trileptal) 00:00: 04:59 (300 mg 300 MG 00 :00 total) by tablet mouth 2 (two) times a day. OXcarbazepi 2021- No oxcarbazep UT ne 05-10 ine 300 mg Health (Trileptal) 13:35: 00:00 tablet 300 MG 52 :00 TAKE HALF tablet TABLET IN THE MORNING AND 1 TABLET IN THE EVENING. OXcarbazepi Yes [id number] 150mg QD Take 0.5 [place] ne 2-18 tablets Health (Trileptal) 00:00: (150 mg 300 MG 00 total) by tablet mouth 1 (one) time each day for 7 doses. OXcarbazepi 2021- No [id number] 150mg QD Take 0.5 [place] ne 05-10 tablets Health (Trileptal) 00:00: 00:00 (150 mg 300 MG 00 :00 total) by tablet mouth 1 (one) time each day for 7 doses. OXcarbazepi 2021- Yes [id number] 150mg QD Take 0.5 [place] ne 2-18 - tablets Health (Trileptal) 00:00: 05:59 (150 mg 300 MG 00 :00 total) by tablet mouth 1 (one) time each day for 7 doses. Vital Signs Vital Name Observation Time Observation Value Comments Source Systolic blood pressure 2021-06-27 15:55:00 127 mm[Hg] [facility] Diastolic blood pressure 2021-06-27 15:55:00 84 mm[Hg] [facility] Heart rate 2021-06-27 15:55:00 88 [facility]min [facility] Body height 2021-06-27 15:55:00 160 cm [facility] Body weight 2021-06-27 15:55:00 61.236 [facility] BMI 2021-06-27 15:55:00 23.91 kg/m2 [facility] Systolic blood pressure 2021-05-10 19:05:00 123 mm[Hg] [facility] Diastolic blood pressure 2021-05-10 19:05:00 79 mm[Hg] [facility] Heart rate 2021-05-10 19:05:00 83 /min [facility] Body temperature 2021-05-10 19:05:00 [facility].56 [facility] height 2021-05-10 19:05:00 160 [facility] Body weight 2021-05-10 19:05:00 58.968 [facility] BMI 2021-05-10 19:05:00 23.03 kg/m2 [facility] Procedures This patient has no known procedures. Encounters Start End Encounter Admission Attending Care Care Encounter Source Date/Time Date/Time Type Type Clinicians Facility Department ID 2021-07-01 Outpatient [facility] [id number] [place] 01:05:58 HAMID [id number] [facility] 2021-06-27 Outpatient [facility] [id number] [place] 10:43:23 HAMID [id number] [facility] 2021-06-25 Outpatient [facility] [id number] [place] 12:55:08 [id number] [facility] 2021-06-24 Outpatient [facility] [id number] [place] 13:14:11 HAMID [id number] [facility] 2021-07-15 2021-07-15 Telephone MERON Asencio [facility] [id number] [place] 00:00:00 00:00:00 Hamid SUGAR [id number] [facility] MED [id number] [place] 2 [id number] 2021-07-15 2021-07-15 Telephone Yuliet Goff [facility] [id number] [place] 00:00:00 00:00:00 Yuliet Goff [place] [id number] Health [place] [id number] 2021-07-01 2021-07-01 Outpatient Matt VERDIN [facility] [id number] 01:12:00 01:12:00 [id number] da [facility] 2021-06-27 2021-06-27 [facility] [id number] [place] 11:00:00 11:15:00 Visit Hamid SUGAR [id number] alth [place] MED [id number] [address] 2 [id number] 2021-06-24 2021-06-24 Telephone Yuliet Goff [facility] [id number] [place] 00:00:00 00:00:00 Yuliet Goff [place] [id number] Health [place] [id number] 2021-05-10 2021-05-10 [facility] [id number] [place] 13:00:00 13:30:00 Visit HAMID SUGAR [id number] alth [place] MED [id number] [address] 2 [id number] 2019-10-25 2019-10-25 Outpatient [facility]I, [id number] [facility] 13:06:00 13:06:00 HAMID Results This patient has no known results.
[2021-08-01] MEDS ORDERED: ONDANSETRON 4 MG/2 ML VIAL ONE ×2 (02:30→10:58)
[2021-08-01] MEDS ORDERED: MAGNES/ALUMIN/SIMET 30ML UCUP ONE (02:30)
[2021-08-01] MEDS ORDERED: MORPHINE 2 MG/ML SYR ONE (02:30)
[2021-08-01] MEDS ORDERED: LIDOCAINE VISCOUS 2% SOLN 15 ML UDC ONE (02:31)
[2021-08-01] MEDS ORDERED: FAMOTIDINE 20 MG/2 ML VIAL IV ONE ×2 (02:31→09:33)
[2021-08-01] MEDS ORDERED: PANTOPRAZOLE 40 MG INJ ONE (02:31)
[2021-08-01] MEDS ORDERED: NA CHLORIDE 0.9% 1,000 ML ONE (02:31)
[2021-08-01 02:35] LABS: Absolute Lymphocytes (CBC) 1.4 K/uL (0.7-4.9); Hematocrit 44.2 % (39.6-49.0); Lymphocytes % 14.4 % (15.3-44.8); MPV 7.4 fL (7.6-11.3); RBC Red Blood Cell Count 4.98 M/uL (4.33-5.43)
[2021-08-01 02:47] LABS: Bilirubin Total 0.3 mg/dL (0.2-1.0); Potassium 3.4 mmol/L (3.5-5.1); Protein, Total 9.1 g/dL (6.4-8.2)
--- NOTE | 2021-08-01 05:14 | ER ---
Nurse's Notes [facility] Name: Reji Sheriff Age: 26 yrs Sex: Male : 1995 Arrival Date: 08/01/2021 Time: 01:30 Bed 15 Private MD: Diagnosis: Epigastric abdominal tenderness;Acute cholecystitis-cholelithiasis;Hypokalemia Presentation: 08/01 01:54 Acuity: VIVEK 3 lp1 01:55 Chief complaint: Patient states: Upper abdominal pain that began about 0100 with nausea lp1 and vomiting; No relieve with Maalox FLAT CUTTER. 01:55 Coronavirus screen: At this time, the client does not indicate any symptoms associated lp1 with coronavirus-19. Ebola Screen: No symptoms or risks identified at this time. Risk Assessment: Do you want to hurt yourself or someone else? Patient reports no desire to harm self or others. Onset of symptoms was August 01, 2021 at 01:00. 01:55 Method Of Arrival: Ambulatory lp1 02:15 Initial Sepsis Screen: Does the patient meet any 2 criteria? No. Patient's initial sm5 sepsis screen is negative. Does the patient have a suspected source of infection? No. Patient's initial sepsis screen is negative. Triage Assessment: 02:15 General: Appears in no apparent distress. Behavior is cooperative. sm5 Historical: - Allergies: 01:54 No Known Allergies; lp1 - Home Meds: 01:54 Nexium Oral [Active]; lp1 - PMHx: 01:54 Deaf; Seizures; Gerd; lp1 - PSHx: 01:54 cochlear implant; lp1 - Immunization history:: Adult Immunizations up to date. - Social history:: Smoking status: Patient denies any tobacco usage or history of. Screenin:15 Abuse screen: Denies threats or abuse. Denies injuries from another. Nutritional sm5 screening: No deficits noted. Tuberculosis screening: No symptoms or risk factors identified. Fall Risk None identified. Assessment: 02:15 General: Appears in no apparent distress. Behavior is appropriate for age. Pain: sm5 Complains of pain in right upper quadrant and epigastric area. Neuro: No deficits noted. Bass Agitation-Sedation Scale (RASS): 0 - Alert and Calm Level of Consciousness is awake, alert, obeys commands, Oriented to person, place, time, situation. Cardiovascular: No deficits noted. Capillary refill < 3 seconds Patient's skin is warm and dry. Respiratory: No deficits noted. Airway is patent Trachea midline Respiratory effort is even, unlabored. GI: Bowel sounds present X 4 quads. Abd is soft Reports nausea, vomiting. 03:30 Reassessment: No changes from previously documented assessment. Patient and/or family 5 updated on plan of care and expected duration. Pain level reassessed. 04:10 Reassessment: No changes from previously documented assessment. Patient is alert, sm5 oriented x 3, equal unlabored respirations, skin warm/dry/pink. 05:37 Reassessment: No changes from previously documented assessment. Patient and/or family sm5 updated on plan of care and expected duration. Pain level reassessed. 06:45 Reassessment: No changes from previously documented assessment. 5 Vital Signs: 02:15 BP 141 / 90; Pulse 79; Resp 21; Temp 97.9(O); Pulse Ox 98% on R/A; 5 ED Course: 01:30 Patient arrived in ED. kz 01:50 Nic Jean MD is Attending Physician. se 01:54 Triage completed. lp1 02:02 Arm band placed on. lp1 02:03 Keyla Lemon, SHANTA is Primary Nurse. sm5 02:15 Patient has correct armband on for positive identification. Bed in low position. Call 5 light in reach. Side rails up X2. 02:25 Inserted saline lock: 22 gauge in left antecubital area, using aseptic technique. Blood kd3 collected. 03:24 US Abdomen Limited In Process Unspecified. EDMS 03:36 CT Abd/Pelvis - IV Contrast Only In Process Unspecified. EDMS 05:12 Oneil Pressley MD is Hospitalizing Provider. se 19:51 No provider procedures requiring assistance completed. Patient admitted, IV remains in [address] Administered Medications: 02:40 Drug: Pepcid (famotidine) 20 mg Route: IVP; Site: left antecubital; sm5 04:21 Follow up: Response: No adverse reaction sm5 02:40 Drug: Zofran (Ondansetron) 4 mg Route: IVP; Site: left antecubital; sm5 04:20 Follow up: Response: Nausea is decreased sm5 02:40 Drug: ProTONIX (pantoprazole) 40 mg Route: IVP; Site: left antecubital; sm5 04:21 Follow up: Response: No adverse reaction 5 02:40 Drug: GI Cocktail without - (Maalox Suspension 30 ml, Lidocaine Liquid 2 % 15 sm5 ml) Route: PO; 04:21 Follow up: Response: No adverse reaction sm5 02:40 Drug: NS 0.9% 1000 ml Route: IV; Rate: 1 bolus; Site: left antecubital; sm5 04:22 Follow up: IV Status: Completed infusion; IV Intake: 1000ml 5 02:40 Drug: morphine 2 mg Route: IVP; Site: left antecubital; sm5 04:21 Follow up: Response: Pain is decreased 5 05:30 Drug: Zosyn (piperacillin-tazobactam) 3.375 grams Route: IVPB; Infused Over: 60 mins; sm5 Site: left antecubital; 06:32 Follow up: IV Status: Completed infusion; IV Intake: 100ml 5 06:32 Drug: NS 0.9% with KCl 20 mEq/L 1000 ml Route: IV; Rate: 100 ml/hr; Site: left sm5 antecubital; Medication: 19:51 VIS not applicable for this client. 5 Intake: 04:22 IV: 1000ml; Total: 1000ml. sm5 06:32 IV: 100ml; Total: 1100ml. 5 Outcome: 05:14 Decision to Hospitalize by Provider. [facility] 10:08 Patient left the ED. kj1 Signatures: Dispatcher [employer] EDMS Nic Jean MD MD cha Pena, Laura RN RN [email or web address] Shital Neil kj1 Kenia Mendoza RN RN kd3 Keyla Lemon RN RN sm5 Nicolle Azevedo
--- NOTE | 2021-08-01 05:15 | EDPHYS ---
Physician Documentation [facility] Name: Reji Sheriff Age: 26 yrs Sex: Male : 1995 Arrival Date: 08/01/2021 Time: 01:30 Bed 15 Private MD: ED Physician Nic Jean HPI: 08/01 02:17 This 26 yrs old Male presents to ER via Ambulatory with complaints of se Abdominal Pain, Vomiting. 02:17 The patient presents to the emergency department with nausea, vomiting, that is se intermittent. Onset: The symptoms/episode began/occurred yesterday. Possible causes: unknown. The symptoms are aggravated by nothing. The symptoms are alleviated by nothing. Associated signs and symptoms: Pertinent positives: nausea, vomiting. Severity of symptoms: At their worst the symptoms were mild moderate in the emergency department the symptoms are unchanged. The patient has experienced similar episodes in the past, several times. Historical: - Allergies: 01:54 No Known Allergies; lp1 - Home Meds: 01:54 Nexium Oral [Active]; lp1 - PMHx: 01:54 Deaf; Seizures; Gerd; lp1 - PSHx: 01:54 cochlear implant; lp1 - Immunization history:: Adult Immunizations up to date. - Social history:: Smoking status: Patient denies any tobacco usage or history of. ROS: 02:18 Constitutional: Negative for fever, chills, and weight loss, Eyes: Negative for injury, se pain, redness, and discharge, ENT: Negative for injury, pain, and discharge, Neck: Negative for injury, pain, and swelling, Cardiovascular: Negative for chest pain, palpitations, and edema, Respiratory: Negative for shortness of breath, cough, wheezing, and pleuritic chest pain, Back: Negative for injury and pain, : Negative for injury, bleeding, discharge, and swelling, MS/Extremity: Negative for injury and deformity, Skin: Negative for injury, rash, and discoloration, Neuro: Negative for headache, weakness, numbness, tingling, and seizure, Psych: Negative for depression, anxiety, suicide ideation, homicidal ideation, and hallucinations, Allergy/Immunology: Negative for hives, rash, and allergies, Endocrine: Negative for neck swelling, polydipsia, polyuria, polyphagia, and marked weight changes, Hematologic/Lymphatic: Negative for swollen nodes, abnormal bleeding, and unusual bruising. 02:18 Abdomen/GI: Positive for abdominal pain, nausea and vomiting, of the epigastric area. Exam: 02:18 Constitutional: This is a well developed, well nourished patient who is awake, alert, se and in no acute distress. Head/Face: Normocephalic, atraumatic. Eyes: Pupils equal round and reactive to light, extra-ocular motions intact. Lids and lashes normal. Conjunctiva and sclera are non-icteric and not injected. Cornea within normal limits. Periorbital areas with no swelling, redness, or edema. ENT: Nares patent. No nasal discharge, no septal abnormalities noted. Tympanic membranes are normal and external auditory canals are clear. Oropharynx with no redness, swelling, or masses, exudates, or evidence of obstruction, uvula midline. Mucous membranes moist. Neck: Trachea midline, no thyromegaly or masses palpated, and no cervical lymphadenopathy. Supple, full range of motion without nuchal rigidity, or vertebral point tenderness. No Meningismus. Chest/axilla: Normal chest wall appearance and motion. Nontender with no deformity. No lesions are appreciated. Cardiovascular: Regular rate and rhythm with a normal S1 and S2. No gallops, murmurs, or rubs. Normal PMI, no JVD. No pulse deficits. Respiratory: Lungs have equal breath sounds bilaterally, clear to auscultation and percussion. No rales, rhonchi or wheezes noted. No increased work of breathing, no retractions or nasal flaring. Back: No spinal tenderness. No costovertebral tenderness. Full range of motion. Male : Normal genitalia with no discharge or lesions. Skin: Warm, dry with normal turgor. Normal color with no rashes, no lesions, and no evidence of cellulitis. MS/ Extremity: Pulses equal, no cyanosis. Neurovascular intact. Full, normal range of motion. Neuro: Awake and alert, GCS 15, oriented to person, place, time, and situation. Cranial nerves II-XII grossly intact. Motor strength 5/5 in all extremities. Sensory grossly intact. Cerebellar exam normal. Normal gait. Psych: Awake, alert, with orientation to person, place and time. Behavior, mood, and affect are within normal limits. 02:18 Abdomen/GI: Inspection: abdomen appears normal, Bowel sounds: normal, Palpation: mild abdominal tenderness, in the epigastric area and right upper quadrant, Liver: no appreciated palpable abnormalities, Hernia: not appreciated. Vital Signs: 02:15 BP 141 / 90; Pulse 79; Resp 21; Temp 97.9(O); Pulse Ox 98% on R/A; sm5 MDM: 01:50 Patient medically screened. [facility] 02:19 Differential diagnosis: Nonspecific abd pain, gastritis, cholecystitis, pancreatitis, se diverticulitis, viral gastroenteritis, gastroenteritis. Data reviewed: vital signs, nurses notes, lab test result(s), radiologic studies, CT scan. Data interpreted: panel monitor: rate is 79 beats/min, rhythm is normal sinus rhythm, Pulse oximetry: on room air is 98 %. Test interpretation: by ED physician or midlevel provider:. Counseling: I had a detailed discussion with the patient and/or guardian regarding: the historical points, exam findings, and any diagnostic results supporting the discharge/admit diagnosis, lab results, radiology results, the need for outpatient follow up, for definitive care, 08/01 02:17 Order name: CBC with Diff; Complete Time: 03:10 [facility] 08/01 02:17 Order name: CMP; Complete Time: 03:10 [facility] 08/01 02:17 Order name: Lipase; Complete Time: 03:10 [facility] 08/01 05:24 Order name: Potassium EDMS 08/01 05:24 Order name: Urine Dipstick-Ancillary; Complete Time: 05:52 [facility] 08/01 09:35 Order name: COVID-19 SARS RT PCR (Document "Date of Onset" if Symptomatic) kj1 08/01 02:17 Order name: CT Abd/Pelvis - IV Contrast Only [facility] 08/01 02:24 Order name: US Abdomen Limited [facility] 08/01 02:17 Order name: IV Saline Lock; Complete Time: 02:25 [facility] 08/01 02:17 Order name: Labs collected and sent; Complete Time: 02:25 [facility] 08/01 02:17 Order name: Urine Dipstick-Ancillary (obtain specimen); Complete Time: 06:46 [facility] 08/01 03:11 Order name: PO challenge: JUICE; Complete Time: 03:57 [facility] Administered Medications: 02:40 Drug: Pepcid (famotidine) 20 mg Route: IVP; Site: left antecubital; sm5 04:21 Follow up: Response: No adverse reaction sm5 02:40 Drug: Zofran (Ondansetron) 4 mg Route: IVP; Site: left antecubital; sm5 04:20 Follow up: Response: Nausea is decreased sm5 02:40 Drug: ProTONIX (pantoprazole) 40 mg Route: IVP; Site: left antecubital; sm5 04:21 Follow up: Response: No adverse reaction sm5 02:40 Drug: GI Cocktail without - (Maalox Suspension 30 ml, Lidocaine Liquid 2 % 15 sm5 ml) Route: PO; 04:21 Follow up: Response: No adverse reaction sm5 02:40 Drug: NS 0.9% 1000 ml Route: IV; Rate: 1 bolus; Site: left antecubital; sm5 04:22 Follow up: IV Status: Completed infusion; IV Intake: 1000ml sm5 02:40 Drug: morphine 2 mg Route: IVP; Site: left antecubital; sm5 04:21 Follow up: Response: Pain is decreased sm5 05:30 Drug: Zosyn (piperacillin-tazobactam) 3.375 grams Route: IVPB; Infused Over: 60 mins; sm5 Site: left antecubital; 06:32 Follow up: IV Status: Completed infusion; IV Intake: 100ml sm5 06:32 Drug: NS 0.9% with KCl 20 mEq/L 1000 ml Route: IV; Rate: 100 ml/hr; Site: left sm5 antecubital; Disposition Summary: 08/01/21 05:14 Hospitalization Ordered Hospitalization Status: Observation se Provider: Oneil Pressley se Condition: Stable se Problem: new se Symptoms: have improved se Bed/Room Type: Standard se Location: DAY SURGERY OTHER(08/01/21 10:08) kj1 Room Assignment: DSO-(08/01/21 10:08) kj1 Diagnosis - Epigastric abdominal tenderness se - Acute cholecystitis - cholelithiasis se - Hypokalemia se Discharge Instructions: - Discharge Summary Sheet se - Indigestion se - Cholelithiasis se - Cholelithiasis, Vevq-ex-Euyz se Forms: - Medication Reconciliation Form se - SBAR form se Prescriptions: - Protonix 40 mg Oral Tablet - take 1 tablet by ORAL route once daily; 30 tablet; Refills: 0, Product se Selection Permitted - Zofran 4 mg Oral Tablet - take 1 tablet by ORAL route every 12 hours As needed; 20 tablet; Refills: 0, [facility] Product Selection Permitted - dicyclomine 20 mg Oral Tablet - take 1 tablet by ORAL route 4 times per day; 28 tablet; Refills: 0, Product se Selection Permitted Signatures: Dispatcher [employer] Nic Danielson MD MD cha Pena, Laura, RN RN lp1 Charlene Braun RN RN Shital Neil1 Keyla Lemon RN RN sm5 Corrections: (The following items were deleted from the chart) 05:16 05:14 Telemetry/MedSurg (observation) [facility] 05:16 05:14 [facility] 10:08 05:16 [facility] ER HOLD cg kj1 10:08 05:16 ERHOLD- kj1
[2021-08-01] MEDS ORDERED: NS KCL 20MEQ 1,000 ML IV ONE (05:19)
[2021-08-01] MEDS ORDERED: NA CHLORIDE 0.9% 100 ML IV ONE ×2 (05:19→09:39)
[2021-08-01] MEDS ORDERED: PIPERACIL/TAZO 3.375 GM VIAL IV ONE ×2 (05:20→09:33)
[2021-08-01 05:24] LABS: Urine Blood Trace-intact (Negative); Urine Glucose Negative (Negative); Urine Protein Negative (Negative); Urine Specific Gravity 1.015 (1.005-1.030)
[2021-08-01] MEDS ORDERED: ACETAMINOPHEN 500 MG TAB PO PRN (06:00)
[2021-08-01] MEDS ORDERED: ONDANSETRON 4 MG/2 ML VIAL IV PRN (06:00)
[2021-08-01] MEDS ORDERED: NS KCL 20MEQ 20 MEQ/1,000 ML BAG IV SCH (06:00)
[2021-08-01] MEDS ORDERED: MORPHINE 4 MG/ML SYR IV PRN (06:00)
[2021-08-01 06:03] VITALS: BMI 20.3
[2021-08-01] MEDS ORDERED: FAMOTIDINE 20 MG/2 ML VIAL IV SCH (09:00)
[2021-08-01] MEDS ORDERED: LIDOCAINE 1% MPF 5 ML VIAL ONE (10:05)
[2021-08-01] MEDS ORDERED: FENTANYL CITR 100 MCG/2 ML ONE (10:05)
[2021-08-01] MEDS ORDERED: ROCURONIUM 50 MG/5 ML VIAL IV ONE (10:05)
[2021-08-01] MEDS ORDERED: MIDAZOLAM HCL 2 MG/2 ML INJ ONE (10:05)
[2021-08-01] MEDS ORDERED: propofoL 200 MG/20 ML VIAL IV ONE (10:05)
[2021-08-01] MEDS: PIPER TAZO 3.375 GM in NA CHLORIDE 0.9% 100 ML IV SCH ×2 (10:14→16:54)
--- NOTE | 2021-08-01 10:25 | P.HP ---
Date of Service: 08/01/21 Chief complaint: Abdominal pain History of present Illness: Patient is a 26-year-old gentleman comes in with 1 day history of epigastric and right upper quadrant abdominal pain associated with nausea and vomiting. Patient had chicken with gravy last night. Patient has had similar episodes in the past. Patient denies any sore throat, runny nose, cough, headaches, dizziness, chest pain, fever or chills. Patient denies diarrhea, constipation, bright red blood per rectum, dysuria or hematuria. Review of systems: Otherwise unremarkable Past medical history: Deafness Past surgical history: Cochlear implant and right hand surgery Allergies: None Social history: Patient does not smoke or drink alcohol Family history: Noncontributory Vital signs: Stable, afebrile Physical exam: Awake alert oriented x3 Head and neck: No neck masses, no JVD, throat clear, neck supple and no evidence of icterus Chest: Clear Heart: S1-S2 Abdomen: Soft, nondistended, positive bowel sounds, tenderness in the right upper quadrant and epigastric region. No rebound, rigidity or guarding. Extremity: Neurovascular intact, full range of motion and nontender Neuro: Nonfocal Diagnostic data: Ultrasound, CT scan, labs reviewed. LFTs are within normal limits. Ultrasound has gallstones with minimal fluid around the gallbladder wall. Assessment: Acute cholecystitis with cholelithiasis Plan/recommendation: Admit, n.p.o., IV fluids, IV antibiotics and to the OR for laparoscopic cholecystectomy, possible open. Patient and parents understand risk, benefits and alternatives and agreed to procedure. Please note parents were present to to communicate via sign language with the patient. CC:
[2021-08-01] MEDS ORDERED: Ringers Lactate 1,000 ML IV ONE (10:32)
[2021-08-01] MEDS ORDERED: KETOROLAC 30 MG/ML INJ ONE (10:56)
[2021-08-01] MEDS ORDERED: dexAMETHasone 10 MG/ML VIAL ONE (10:56)
[2021-08-01] MEDS ORDERED: NEOSTIGMINE 1 MG/ML -5 ML ONE (10:58)
[2021-08-01] MEDS ORDERED: GLYCOPYRROLATE 0.2 MG/ML SYR ONE (11:27)
--- NOTE | 2021-08-01 11:40 | P.OP ---
Preop diagnosis: Acute cholecystitis and cholelithiasis Postop diagnosis: Same Procedure performed: Laparoscopic cholecystectomy Surgeon: Oneil Pressley MD [facility] Former: Cara PETERSON Estimated blood loss: Minimal Specimen: Gallbladder Findings: As above Anesthesia: General Complications: None Drains: None Fluids and blood products: Nonapplicable Disposition: Recovery room Operative note: Patient brought to the OR and placed in the supine position. General anesthesia begun. Patient prepped and draped in the usual sterile fashion. Marcaine 0.5% infiltrated locally. 15 blade used to make a 1 cm supraumbilical midline incision. Subcutaneous tissue divided and fascia identified and divided. Peritoneal cavity entered with sharp and blunt dissection. 12 mm trocar placed into the peritoneal cavity under direct vision. Pneumoperitoneum established. Then 3 5 mm trocar placed, 1 in the epigastric region just to the right of midline and 2 in the right subcostal region. Laparoscopy revealed a distended, acutely inflamed gallbladder with thickened wall. Gallbladder aspirated of bile. Fundus retracted superiorly. Infundibulum identified and retracted inferolaterally. Cystic duct and cystic artery clearly identified with blunt dissection. Clips placed and both structures divided. Gallbladder removed from the liver bed utilizing cautery. Bleeding on the liver bed controlled with cautery. Gallbladder retrieved through the umbilicus via Endo Catch bag. Right upper quadrant irrigated. Minimal oozing noted in the gallbladder fossa. Controlled with cautery. Surgicel left in place as a precaution. Effluent of the irrigation fluid was completely clear. There was no evidence of bleeding or bile leakage appreciated. All trochars were removed under direct vision. Stay sutures were tied to each other reapproximate the fascial defect. Subcutaneous wounds irrigated and bleeding controlled with cautery. Then 3-0 chromic used to reapproximate subcutaneous tissue and closed skin. Sterile dressing applied. Patient awakened and taken to recovery room in good general condition. CC:
--- NOTE | 2021-08-01 11:59 | RAD REPORT ---
EXAM DESCRIPTION: CT - Abdomen Pelvis W Contrast - 08/01/2021 5:44 am CLINICAL HISTORY: 26 years, Male, Epigastric pain COMPARISON: 03/29/2021 TECHNIQUE: Contrast-enhanced images of the abdomen and pelvis were performed utilizing 5 mm slice th ickness at 5 mm interval reconstruction from the lung bases to the ischial tuberosities after the adm inistration of IV contrast. In addition multiplanar reformats in the coronal and sagittal plane were obtained and reviewed. This exam was performed according to our departmental dose-optimization protocol, which includes auto mated exposure control, adjustment of the mA and/or kV according to patient size and/or use of iterat sola reconstruction technique. FINDINGS: The lung bases demonstrate minimal dependent atelectatic changes. The liver, pancreas, spleen and adrenal glands demonstrate to be unremarkable, no focal lesions are n oted. The gallbladder demonstrated presence of the minimal wall enhancement and questionable minimal trace of pericholecystic fluid on axial image 22-25. There are no significant calculi. There is no bi liary duct dilatation. The kidneys demonstrate normal uptake of contrast media. There is minimal cortical deformity of the l ower pole of the right kidney corresponding to scarring. No evidence for nephrolithiasis and/or hydro nephrosis. Grossly the unopacified stomach, small bowel and large bowel demonstrate to be within normal limits. There is no evidence for bowel dilatation/or free air. The appendix was not visualized although n o significant inflammatory changes are seen within the right lower quadrant. The left site colon is d ecompressed with no significant abnormalities. The urinary bladder demonstrate to be unremarkable. The prostate gland is normal. The aorta demon strate to be normal. There is no retroperitoneal lymphadenopathy. There is no ascites. The rest of the soft tissue and bony structures are within normal limits. IMPRESSION: Minimal gallbladder wall enhancement and questionable minimal trace of pericholecystic f luid. There are no significant calculi. Recommend further evaluation with right upper quadrant ultras ound if clinically indicated. Otherwise unremarkable CT scan of the abdomen and pelvis with contrast. Electronically signed by: Marv Pennington MD 08/01/2021 3:55 AM CDT Due to temporary technical issues with the PACS/Fluency reporting system, reports are being signed by the in house radiologists without review as a courtesy to insure prompt reporting. The interpreting radiologist is fully responsible for the content of the report.
[2021-08-01] MEDS ORDERED: HYDROCODONE/APAP 7.5/325 MG TAB PO PRN (12:07)
[2021-08-01] MEDS ORDERED: HYDROMORPHONE HCL 1 MG/ML INJ IV PRN (12:07)
--- NOTE | 2021-08-01 12:12 | RAD REPORT ---
EXAM DESCRIPTION: US - Abdomen Exam Limited - 08/01/2021 4:34 am CLINICAL HISTORY: 26 years, Male, ABD PAIN COMPARISON: Recent CT scan of the abdomen and pelvis. TECHNIQUE: Utilizing a curved array transducer, real-time ultrasound evaluation of the abdominal vis cera was performed. Color Doppler imaging was used to assess vascular flow. FINDINGS: The liver is normal in size. No significant intrahepatic biliary duct dilatation. The gallbladder to be distended. There is noted the presence of several echogenic structures correspo nding to cholelithiasis. There is no gallbladder wall thickening. Questionable minimal trace of peric holecystic fluid. There is negative ultrasonographic White sign. The common bile duct measures 2.6 m m. No intra or extrahepatic biliary duct dilatation was identified. There is no evidence for free fluid within the upper abdomen. IMPRESSION: Cholelithiasis with distended gallbladder and questionable minimal trace of pericholecys tic fluid. No gallbladder wall thickening or pericholecystic fluid. Findings could represent acute ch olecystitis. Correlation with a nuclear medicine hepatobiliary scan could be helpful for further eval uation. Electronically signed by: Marv Pennington MD 08/01/2021 4:00 AM CDT Due to temporary technical issues with the PACS/Fluency reporting system, reports are being signed by the in house radiologists without review as a courtesy to insure prompt reporting. The interpreting radiologist is fully responsible for the content of the report.
[2021-08-01] MEDS: Ringers Lactate 1,000 ML IV SCH ×2 (13:23→22:07)
[2021-08-01] MEDS ORDERED: MAGNES/ALUMIN/SIMET 30ML UCUP PO ONE (18:01)
[2021-08-01] MEDS: FAMOTIDINE 20 MG TAB PO SCH (21:08)
[2021-08-02] MEDS: PIPER TAZO 3.375 GM in NA CHLORIDE 0.9% 100 ML IV SCH ×2 (00:18→09:00)
[2021-08-02] MEDS: Ringers Lactate 1,000 ML IV SCH (02:01)
[2021-08-02 05:46] LABS: Absolute Lymphocytes (CBC) 1.1 K/uL (0.7-4.9); Hematocrit 39.7 % (39.6-49.0); Lymphocytes % 16.1 % (15.3-44.8); MPV 7.1 fL (7.6-11.3)
--- NOTE | 2021-08-02 08:29 | P.DS ---
Admission Date: 08/01/21 Discharge Date: 08/02/21 Disposition: ROUTINE DISCHARGE Discharge Condition: GOOD Reason for Admission: Acute cholecystitis and cholelithiasis Brief History of Present Illness: 26-year-old gentleman who came in with biliary colic. Work-up revealed acute cholecystitis and cholelithiasis. Hospital Course: Patient had been worked up with CT scan and ultrasound as well as laboratory data. Patient was found to have acute cholecystitis and cholelithiasis. Patient underwent a laparoscopic cholecystectomy yesterday. Postoperatively, patient is tolerating diet, ambulating, pain controlled on p.o. pain medication and afebrile. Therefore patient will be discharged home. Disposition: Home Condition: Stable See discharge instructions. Vital Signs/Physical Exam: Temp Pulse Resp BP Pulse Ox 97.6 F 83 17 153/57 H 98 08/02/21 00:00 08/02/21 00:00 08/02/21 01:17 08/02/21 00:00 08/02/21 01:17 Laboratory Data at Discharge: WBC 7.0 K/uL (4.3-10.9) D 08/02/21 05:27 Hgb 13.7 g/dL (13.6-17.9) 08/02/21 05:27 Hct 39.7 % (39.6-49.0) 08/02/21 05:27 Plt Count 178 K/uL (152-406) 08/02/21 05:27 Sodium 140 mmol/L (136-145) 08/01/21 02:23 Potassium Cancelled 08/01/21 Unknown BUN 13 mg/dL (7-18) 08/01/21 02:23 Creatinine 1.00 mg/dL (0.55-1.3) 08/01/21 02:23 Glucose 117 mg/dL (74-106) H 08/01/21 02:23 Total Bilirubin 0.3 mg/dL (0.2-1.0) 08/01/21 02:23 AST 25 U/L (15-37) 08/01/21 02:23 ALT 37 U/L (12-78) 08/01/21 02:23 Alkaline Phosphatase 83 U/L (45-117) 08/01/21 02:23 Lipase 135 U/L (73-393) 08/01/21 02:23 Home Medications: OXcarbazepine [Oxcarbazepine] 150 mg PO BID 08/01/21 Physician Discharge Instructions: Remove outer dressing in 2 days and shower Keep wound clean and dry May clean wound with peroxide, apply Neosporin and cover with gauze daily Incentive spirometry as ordered Tylenol [address] [facility] in [place] Diet: Regular Activity: No lifting more than 10 lbs Followup: Yogesh Durbin MD [Primary Care Provider] - Oneil Pressley MD [ACTIVE - CAN ADMIT] - 1 Week
[2021-08-02 09:03] VITALS: O2SAT 97
[2021-08-02] MEDS: FAMOTIDINE 20 MG TAB PO SCH (09:59)
[2021-08-02 10:11] VITALS: BP 127/59; TEMP 98.6
== END 2021-08-02 10:46 | disposition home or self-care (01) ==
LOC: ER 01:27 → ERHOLD 05:15 → 2ND 12:23
PROVIDERS: ADMIT Surgery; ATTEND Surgery
PROC: 0FT44ZZ Resection of Gallbladder, Percutaneous Endoscopic Approach (ICD-10-PCS; principal; 2021-08-01 08:45)
DX: K80.00 Calculus of gallbladder with acute cholecystitis without obstruction (principal); E87.6 Hypokalemia; K21.9 Gastro-esophageal reflux disease without esophagitis; R56.9 Unspecified convulsions; H91.90 Unspecified hearing loss, unspecified ear; Z20.822 Contact with and (suspected) exposure to COVID-19
CPT/HCPCS: 96365; 96361; 85025 ×2; 36415 ×2; 88304; 81003; 83690; 80053; 74177; 76705; 94010; 96375; 99284; 47562; U0003; Q9967; J2704; J2543 ×5; C9113; J2250; J3010; J1100; J2270; J1170; J2710; G0378 ×4; J7120 ×3; J7030; J2405 ×3; J3490 ×2; J3480

== ENCOUNTER 2024-08-03 22:43 | Emergency (ER) | payer BC, OTHER ==
--- OUTSIDE RECORDS SUMMARY | 2024-08-03 22:46 | XMS REPORT | Continuity of Care Document ---
Author Name Unknown Address [address] [facility] [address] [place] [address] Organization [facility] Address [address] [facility] [address] [place] [address] Care Team Providers [employer] Salesperson Name Role Phone Zana AYALA, Yogesh Primary Care Physician [phone] SUZET[facility] ASENCIO Attending Clinician Unavailable Yuliet Goff MA Attending Clinician Unavailguillermo e Matt Attending Clinician Unavailable SUZETTE ASENCIO Attending Clinician Unavailable Matt Admitting Clinician Unavailable Payers Payer Name Policy Type Policy Number Effective Date Expirati on Date Source MEDICARE PART A AND B [id number] 2020 00:00:00 [place] OUT OF STATE [id number] 2012 00:00:00 2022 00:00:00 [employer] [facility] [id number] 00:00:00 2023 00:00:00 [employer] (MEDICARE REPLACEMENT HMO) [id number] 2023 00:00:00 Problems Condition Name Condition Details Condition Category Status Onset Date Resolution Date Last Treatment Date Treating Clinician Comments Source BMI 25.0-25.9, adult BMI 25.0-25.9, adult Disease Active 10-27 00:00: 00 [facility] Focal seizure Focal seizure Disease Active 10-27 00:00: 00 [facility] Social History Social Habit Start Date Stop Date Quantity Comments Source History SDOH Alcohol Comment [facility] Exposure to SARS-CoV-2 (event) Not sure [facility] Alcohol intake 2022-10-27 00:00:00 2022-10-27 00:00:00 Lifetime non-drinker (finding) [facility] Tobacco use and exposure 2022-10-27 00:00:00 2022-10-27 00:00:00 Smokeless tobacco non-user [facility] Tobacco Comment 2022-10-27 00:00:00 2022-10-27 00:00:00 Smoking History Packs/day: N. Recorded: 1 [facility] History SDOH Alcohol Frequency 2022-10-27 00:00:00 2022-10-27 00:00:00 1 [facility] SD[facility] Alcohol Std Drinks 2022-10-27 00:00:00 2022-10-27 00:00:00 0 [facility] SD[facility] Alcohol Binge 2022-10-27 00:00:00 2022-10-27 00:00:00 1 [facility] Sex Assigned At 1995 00:00:00 1995 00:00:00 [facility] Smoking Status Start Date Stop Date Source Never smoked tobacco [facility] th Medications Ordered Medication Name Filled Medication Name Start Date Stop Date Current Medication? Ordering Clinician Indication Dosage Frequency Signature (SIG) Comments Components Source OXcarbazepi ne (Trileptal) 300 MG tablet 07-22 00:00: 00 Yes [id number] 300mg Q.5D Take 1 tablet (300 mg total) by mouth in the morning and 1 tablet (300 mg total) before bedtime. [facility] OXcarbazepi ne (Trileptal) 300 MG tablet 06-27 00:00: 00 07-28 04:59 :00 No [id number] 300mg Q.5D Take 1 tablet (300 mg total) by mouth 2 (two) times a day. [facility] OXcarbazepi ne (Trileptal) 300 MG tablet 05-10 13:35: 52 05-10 00:00 :00 No oxcarbazep ine 300 mg tablet TAKE HALF TABLET IN THE MORNING AND 1 TABLET IN THE EVENING. [facility] OXcarbazepi ne (Trileptal) 300 MG tablet 05-10 00:00: 00 06-27 00:00 :00 No [id number] 150mg QD Take 0.5 tablets (150 mg total) by mouth 1 (one) time each day for 7 doses. [facility] Vital Signs Vital Name Observation Time Observation Value Comments S ource Systolic blood pressure 2022-10-27 18:11:00 127 mm[Hg] [facility] Diastolic blood pressure 2022-10-27 18:11:00 85 mm[Hg] [facility] Heart rate 2022-10-27 18:11:00 81 /min [facility] Body height 2022-10-27 18:11:00 157.5 cm [facility] Body weight 2022-10-27 18:11:00 63.504 kg [facility] BMI 2022-10-27 18:11:00 25.61 kg/m2 [facility] Systolic blood pressure 2021-06-27 15:55:00 127 mm[Hg] [facility] Diastolic blood pressure 2021-06-27 15:55:00 84 mm[Hg] [facility] Heart rate 2021-06-27 15:55:00 88 /min [facility] Body height 2021-06-27 15:55:00 160 cm [facility] Body weight 2021-06-27 15:55:00 61.236 [facility] BMI 2021-06-27 15:55:00 23.91 kg/m2 [facility] Systolic blood pressure 2021-05-10 19:05:00 123 mm[Hg] [facility] Diastolic blood pressure 2021-05-10 19:05:00 79 mm[Hg] [facility] Heart rate 2021-05-10 19:05:00 83 /min [facility] Body temperature 2021-05-10 19:05:00 36.56 Liya [facility] Body height 2021-05-10 19:05:00 160 cm [facility] Body weight 2021-05-10 19:05:00 58.968 kg [facility] BMI 2021-05-10 19:05:00 23.03 kg/m2 [facility] En[facility]ters Start Date/Time End Date/Time Encounter Type Admission Type Attending [facility] Care Department Encounter ID Source 2022-10-20 13:04:31 [facility] [id number] [facility] 2022-07-22 13:50:29 [facility] [id number] [facility] 2023-10-28 11:00:00 2023-10-28 11:00:00 Outpatient [facility] [id number] [facility] 2023-02-09 00:00:00 2023-02-09 00:00:00 Outpatient [facility] [id number] 2022-10-27 13:00:00 2022-10-27 13:33:58 Office Visit Suzette sAencio [facility] [place] [facility] 2 [id number] [facility] 2022-10-27 11:00:00 2022-10-27 11:00:00 Outpatient [facility] [id number] [facility] 2021-08-13 14:15:00 2021-08-13 14:15:00 Outpatient [facility] [id number] [facility] 2021-07-15 00:00:00 2021-07-15 00:00:00 Telephone Suzette Asencio [facility] [place] [facility] [place] 2 [id number] [facility] 2021-07-15 00:00:00 2021-07-15 00:00:00 Telephone Yuliet Goff Delana [facility] [place] [id number] [facility] 2021-07-01 01:12:00 2021-07-01 01:12:00 Outpatient VicentamagalysNahunfco [facility] [id number] [facility] 2021-06-27 11:00:00 2021-06-27 11:15:00 Office Visit Suzette Asencio [facility] [place] [facility] 2 [id number] [facility] 2021-06-24 00:00:00 2021-06-24 00:00:00 Telephone Yuliet Goff Delana [facility] [place] [id number] [facility] 2021-05-10 13:00:00 2021-05-10 13:30:00 Office Visit SUZETTE ASENCIO [facility] [place] [facility] [place] 2 [id number] [facility] 2019-10-25 13:06:00 2019-10-25 13:06:00 Outpatient [facility]ZETTE ASENCIO [facility] [address] [place], [place] [address]FB
[2024-08-03] MEDS ORDERED: ACETAMINOPHEN 500 MG TAB ONE (23:13)
[2024-08-03] MEDS ORDERED: IBUPROFEN 400 MG TAB ONE (23:14)
[2024-08-03] MEDS ORDERED: CIPROFLOXACIN HCL 500 MG TAB ONE (23:14)
[2024-08-03] MEDS ORDERED: TDAP (DIPHTH,PERTUSS(ACELL),TET VAC) 0.5 ML VIAL IMVAC ONE (23:14)
--- NOTE | 2024-08-04 00:40 | EDPHYS ---
Physician Documentation [facility] Name: Reji Sheriff Age: 29 yrs Sex: Male : 1995 Arrival Date: 08/03/2024 Time: 22:43 Bed 13 Private MD: ED Physician Telly Courtney HPI: 08/04 01:02 This 29 yrs old Male presents to ER via Ambulatory with complaints of sb4 Laceration To Hand. 01:02 Accidentally cut the palm of his right hand with a fishing knife prior to arrival. sb4 States he had not use the knife on the fish or anything earlier, but does not know if it is clean or not. States tetanus shot is not up-to-date. Injury occurred several hours ago. Historical: - Allergies: 08/03 23:02 No Known Allergies; cp4 - PMHx: 23:02 Deaf; GERD; Seizures; cp4 - PSHx: 23:02 cochlear implant; cp4 - Immunization history:: Adult Immunizations up to date. - Infectious Disease History:: Denies. - Social history:: Smoking status: Patient denies any tobacco usage or history of. ROS: 08/04 01:02 Constitutional: Negative for fever, chills, and weight loss, sb4 Skin: Positive for laceration(s), of the palm of right hand, All other systems are negative, Exam: 01:02 Constitutional: This is a well developed, well nourished patient who is awake, alert, sb4 and in no acute distress. 01:02 Skin: Appearance: injury, laceration(s), the wound is approximately 1 cm(s), with a depth of .2 cm(s), of the palm of right hand, that can be described as clean, no foreign body, linear, without bleeding, Vital Signs: 08/03 23:01 BP 129 / 81; Pulse 83; Resp 18; Temp 98.2; Pulse Ox 99% ; Weight 63.5 kg; Height 5 ft. cp4 3 in. ; Pain 3/10; 23:58 BP 120 / 74; Pulse 81; Resp 18; Pulse Ox 98% ; cp4 23:01 Body Mass Index 24.80 (63.50 kg, 160.02 cm) cp4 23:01 Pain Scale: Adult cp4 MDM: 22:54 Medical Screening Exam initiated sb4 08/04 01:04 Data reviewed: vital signs, nurses notes, radiologic studies, I have discussed the sb4 patient's presentation/case with the attending Emergency Department Physician; and as a result, I will discharge patient. Counseling: I had a detailed discussion with the patient and/or guardian regarding the historical points, exam findings, and any diagnostic results supporting the discharge/admit diagnosis, radiology results, the need for outpatient follow up, for definitive care, to return to the emergency department if symptoms worsen or persist or if there are any questions or concerns that arise at home. ED course: Laceration is very minor, bleeding is controlled, no repair is required at this time. 08/03 23:08 Order name: Hand Right 3 View XRAY sb4 08/03 23:08 Order name: Wound Care; Complete Time: 23:33 sb4 08/03 23:08 Order name: Wound dressing; Complete Time: 23:33 sb4 08/04 00:39 Order name: Harvinder Wrap; Complete Time: 00:43 sb4 Administered Medications: 08/03 23:19 Drug: Ibuprofen PO 800 mg PO once Route: PO; cp4 08/04 00:41 Follow up: Response: No adverse reaction cp4 08/03 23:19 Drug: Acetaminophen PO 1000 mg PO once Route: PO; cp4 08/04 00:41 Follow up: Response: No adverse reaction cp4 08/03 23:20 Drug: Boostrix Tdap IM 0.5 ml IM once; as a single dose Route: IM; Site: right deltoid; cp4 08/04 00:41 Follow up: Response: No adverse reaction cp4 08/03 23:20 Drug: Ciprofloxacin PO 500 mg PO once Route: PO; cp4 08/04 00:41 Follow up: Response: No adverse reaction cp4 Disposition Summary: 08/04/24 00:40 Discharge Ordered Notes: Location: Home sb4 Problem: new sb4 Symptoms: have improved sb4 Condition: Stable sb4 Diagnosis - Laceration without foreign body of right hand sb4 Followup: sb4 - With: Private Physician - When: 1 week - Reason: Recheck today's complaints, Re-evaluation by your physician Discharge Instructions: - Discharge Summary Sheet sb4 - Nonsutured Laceration Care sb4 Forms: - Antibiotic Education sb4 - Patient Portal Instructions sb4 - Leadership Thank You Letter sb4 - Work release form cp4 Prescriptions: - Cipro 500 mg Oral Tablet - take 1 tablet ORAL route every 12 hours for 7 days; 14 tablet; Refills: 0, sb4 Product Selection Permitted Signatures: Dispatcher [employer] EDLucero Bruce, ROXANNA MCKNIGHT sb4 Lizzy Redd cp4 Corrections: (The following items were deleted from the chart) 08/03 23:08 23:08 Hand Right 3 View+RAD.RAD.[email or web address] ordered. EDCA EDCA 08/04 01:04 01:02 Skin: Appearance: injury, laceration(s), the wound is approximately 1 cm(s), with sb4 a depth of .2 cm(s), of the palm of right hand, sb4
--- NOTE | 2024-08-04 00:40 | ER ---
Nurse's Notes [facility] Name: Reji Sheriff Age: 29 yrs Sex: Male : 1995 Arrival Date: 08/03/2024 Time: 22:43 Bed 13 Private MD: Diagnosis: Laceration without foreign body of right hand Presentation: 08/03 23:01 Chief complaint: Patient states: laceration to the right palm while fishing. cp4 Coronavirus screen: Client denies travel out of the [place] in the last 14 days. At this time, the client does not indicate any symptoms associated with coronavirus-19. Ebola Screen: Patient negative for fever greater than or equal to 101.5 degrees Fahrenheit, and additional compatible Ebola Virus Disease symptoms Patient denies exposure to infectious person. Patient denies travel to an Ebola-affected area in the 21 days before illness onset. No symptoms or risks identified at this time. Complicating Factors: There are no complicating factors for this patient. Initial Sepsis Screen: Does the patient meet any 2 criteria? No. Patient's initial sepsis screen is negative. Does the patient have a suspected source of infection? No. Patient's initial sepsis screen is negative. Risk Assessment: Do you want to hurt yourself or someone else? Patient reports no desire to harm self or others. Onset of symptoms was August 03, 2024 at 16:00. 23:01 Method Of Arrival: Ambulatory 4 23:01 Acuity: VIVEK 4 cp4 Triage Assessment: 23:02 General: Appears in no apparent distress. comfortable, Behavior is calm, cooperative, cp4 appropriate for age. Pain: Complains of pain in right palm Pain does not radiate. Pain currently is 3 out of 10 on a pain scale. EENT: No signs and/or symptoms were reported regarding the EENT system. Neuro: Level of Consciousness is awake, alert, obeys commands, Oriented to person, place, time, situation. Cardiovascular: Patient's skin is warm and dry. Respiratory: Airway is patent Respiratory effort is even, unlabored. GI: No signs and/or symptoms were reported involving the gastrointestinal system. : No signs and/or symptoms were reported regarding the genitourinary system. Derm: No signs and/or symptoms reported regarding the dermatologic system. Musculoskeletal: No signs and/or symptoms reported regarding the musculoskeletal system. Injury Description: Laceration sustained to right palm is contaminated, 0.5 to 2.5 cm long, was sustained 4-6 hours ago. is bleeding a small amount. Historical: - Allergies: 23:02 No Known Allergies; cp4 - PMHx: 23:02 Deaf; GERD; Seizures; cp4 - PSHx: 23:02 cochlear implant; cp4 - Immunization history:: Adult Immunizations up to date. - Infectious Disease History:: Denies. - Social history:: Smoking status: Patient denies any tobacco usage or history of. Screenin:04 [facility] ED Fall Risk Assessment (Adult) History of falling in the last 3 months, cp4 including since admission No falls in past 3 months (0 pts) Confusion or Disorientation No (0 pts) Intoxicated or Sedated No (0 pts) Impaired Gait No (0 pts) Mobility Assist Device Used No (0 pt) Altered Elimination No (0 pt) Score/Fall Risk Level 0 - 2 = Low Risk Oriented to surroundings, Maintained a safe environment, Assessed \T\ reinforced patient's understanding of fall precautions, Hourly rounding (assess needs \T\ fall precautionary measures) done. Abuse screen: Denies threats or abuse. Denies injuries from another. Nutritional screening: No deficits noted. Tuberculosis screening: No symptoms or risk factors identified. Assessment: 23:04 Reassessment: No changes from previously documented assessment. cp4 Vital Signs: 23:01 BP 129 / 81; Pulse 83; Resp 18; Temp 98.2; Pulse Ox 99% ; Weight 63.5 kg; Height 5 ft. cp4 3 in. ; Pain 3/10; 23:58 BP 120 / 74; Pulse 81; Resp 18; Pulse Ox 98% ; cp4 23:01 Body Mass Index 24.80 (63.50 kg, 160.02 cm) cp4 23:01 Pain Scale: Adult cp4 ED Course: 22:49 Patient arrived in ED. gm2 22:50 Lucero Garcia PA-C is PHCP. sb4 22:50 Telly Courtney MD is Attending Physician. sb4 22:55 Lizzy Redd is Primary Nurse. cp4 23:02 Triage completed. cp4 23:02 Arm band placed on left wrist. Patient placed in waiting room. cp4 23:04 Bed in low position. Call light in reach. Side rails up X2. cp4 23:33 Patient did not have IV access during this emergency room visit. Wound care: to cp4 laceration located on right palm was cleaned with Hibiclens, dressed with band aid, Patient tolerated well. 23:33 No provider procedures requiring assistance completed. cp4 23:59 Hand Right 3 View XRAY In Process Unspecified. EDMS 08/04 00:52 Provided Education on: laceration. cp4 Administered Medications: 08/03 23:19 Drug: Ibuprofen PO 800 mg PO once Route: PO; cp4 08/04 00:41 Follow up: Response: No adverse reaction cp4 08/03 23:19 Drug: Acetaminophen PO 1000 mg PO once Route: PO; cp4 08/04 00:41 Follow up: Response: No adverse reaction cp4 08/03 23:20 Drug: Boostrix Tdap IM 0.5 ml IM once; as a single dose Route: IM; Site: right deltoid; cp4 08/04 00:41 Follow up: Response: No adverse reaction cp4 08/03 23:20 Drug: Ciprofloxacin PO 500 mg PO once Route: PO; cp4 08/04 00:41 Follow up: Response: No adverse reaction cp4 Medication: 08/03 23:04 VIS not applicable for this client. cp4 Outcome: 08/04 00:40 Discharge ordered by . sb4 00:52 Discharged to home ambulatory, cp4 00:52 Condition: stable 00:52 Discharge instructions given to patient, family, Instructed on discharge instructions, follow up and referral plans. medication usage, Demonstrated understanding of instructions, follow-up care, medications, Prescriptions given X 1, 00:52 Patient left the ED. cp4 Signatures: Dispatcher [employer] EDLucero Bruce PA-C PA-C sb4 Lizzy Redd cp4 Deloris Castillo 2
[2024-08-04 02:32] VITALS: TEMP 98.2
[2024-08-04 02:34] VITALS: BP 120/74; O2SAT 98
--- NOTE | 2024-08-04 06:07 | RAD REPORT ---
EXAM: XR Right Hand Complete, 3 or More Views CLINICAL HISTORY: The patient is 29 years old and is Male; laceration TECHNIQUE: Frontal, lateral and oblique views of the right hand. COMPARISON: No relevant prior studies available. 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 The bone mineralization is normal. There is no evidence of fracture. No dislocation. SOFT TISSUES: Unremarkable. No radiopaque foreign body. IMPRESSION: No acute findings in the right hand. Chronic findings as above. Electronically signed by: Raquel Rivers MD 08/04/2024 12:33 AM CDT RP Due to temporary technical issues with the PACS/Cloud Floor reporting system, reports are being fina d by the in-house radiologist without review as a courtesy to ensure prompt reporting the interpreting radiologist is fully responsible for the content of the report. Transcribed Date/Time: 08/04/2024 6:07 AM
== END 2024-08-04 00:52 | disposition home or self-care (01) ==
LOC: ER 22:43
DX: S61.411A Laceration without foreign body of right hand, initial encounter (principal); Z23 Encounter for immunization
CPT/HCPCS: 90715; 96372; 99284

== ENCOUNTER 2024-10-26 10:10 | Inpatient (IN) | payer OTHER ==
--- OUTSIDE RECORDS SUMMARY | 2024-10-26 10:13 | XMS REPORT | Continuity of Care Document ---
Author Name Unknown Address [address] [facility] [address] [place] [address] [facility] Address [address] 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 Role Phone PCP, PATIENT DOES NOT HAVE A Primary Care Physic jasmin Unavailable RADHA NAVAS Attending Clinician UnavailSUZETTE Chaudhary Attending Clinician Unavailable Yuliet Goff MA Attending Clinician Unavailguillermo Gutierrez Attending Clinician Unavailable SUZETTE ASENCIO Attending Clinician Unavailable Matt Admitting Clinician Unavailable Payers Payer Name Policy Type Policy Number Effective Date Expirati on Date Source MEDICARE PART A AND B [id number] 2020 00:00:00 [place] OUT OF STATE [id number] 2012 00:00:00 2022 00:00:00 [place] Pop O [id number] 2022 00:00:00 2023 00:00:00 Problems Condition Name Condition Details Condition Category Status Onset Date Resolution Date Last Treatment Date Treating Clinician Comments Source BMI 25.0-25.9, adult BMI 25.0-25.9, adult Disease Active 10-27 00:00: 00 [facility] Focal seizure Focal seizure Disease Active 10-27 00:00: 00 [facility] Allergies, Adverse Reactions, Alerts Allergy Name Allergy Type Status Severity Reaction(s) Onset Date Inactive Date Treating Clinician Comments Source NO KNOWN ALLERGIE S Drug Class Active [facility] Social History Social Habit Start Date Stop Date Quantity Comments [facility] Comment [facility] Exposure to SARS-CoV-2 (event) Not sure [facility] History of Social function 2024-08-17 00:00:00 2024-08-17 00:00:00 [facility] Alcohol intake 2022-10-27 00:00:00 2022-10-27 00:00:00 Lifetime non-drinker (finding) [facility] Tobacco use and exposure 2022-10-27 00:00:00 2022-10-27 00:00:00 Smokeless tobacco non-user [facility] Tobacco Comment 2022-10-27 00:00:00 2022-10-27 00:00:00 Smoking History Packs/day: N. Recorded: 021 [facility] History SDOH Alcohol Frequency 2022-10-27 00:00:00 2022-10-27 00:00:00 1 [facility] History SDOH Alcohol Std Drinks 2022-10-27 00:00:00 2022-10-27 00:00:00 0 [facility] History SDOH Alcohol Binge 2022-10-27 00:00:00 2022-10-27 00:00:00 1 [facility] Sex assigned at 1995 00:00:00 1995 00:00:00 [facility] Smoking Status Start Date Stop Date Source Tobacco smoking consumption unknown [facility] Never smoked tobacco [facility] Medications Ordered Medication Name Filled Medication Name Start Date Stop Date Current Medication? Ordering Clinician Indication Dosage Frequency Signature (SIG) Comments Components Source doxycycline hyclate 100 mg tablet 08-17 00:00: 00 08-25 04:59 :00 Yes [id number] 100mg Take 1 tablet by mouth in the morning and 1 tablet in the evening. Do all this for 7 days. [facility] OXcarbazepi ne 300 mg tablet 08-02 11:39: 53 Yes 300mg Take 1 tablet by mouth at bedtime. [facility] levocetiriz ine 5 mg tablet 08-02 00:00: 00 Yes [id number] 5mg Take 1 tablet by mouth every evening. [facility] fluticasone propionate 50 mcg/actuati on nasal spray 08-02 00:00: 00 Yes [id number] 2{spray } Use 2 Sprays in each nostril in the morning. [facility] OXcarbazepi ne (Trileptal) 300 MG tablet 07-22 00:00: 00 Yes [id number] 300mg Q.5D Take 1 tablet (300 mg total) by mouth in the morning and 1 tablet (300 mg total) before bedtime. [facility] OXcarbazepi ne (Trileptal) 300 MG tablet 06-27 00:00: 00 07-28 04:59 :00 No [id number] 300mg Q.5D Take 1 tablet (300 mg total) by mouth 2 (two) times a day. [facility] OXcarbazepi ne (Trileptal) 300 MG tablet 05-10 13:35: 52 05-10 00:00 :00 No oxcarbazep ine 300 mg tablet TAKE HALF TABLET IN THE MORNING AND 1 TABLET IN THE EVENING. [facility] OXcarbazepi ne (Trileptal) 300 MG tablet 05-10 00:00: 00 06-27 00:00 :00 No [id number] 150mg QD Take 0.5 tablets (150 mg total) by mouth 1 (one) time each day for 7 doses. [facility] Vital Signs Vital Name Observation Time Observation Value Comments S david Systolic blood pressure 2024-08-17 19:43:00 116 mm[facility]Hg[facility] Diastolic blood pressure 2024-08-17 19:43:00 75 mm[Hg] [facility] Heart rate 2024-08-17 19:43:00 105 /min [facility] Body temperature 2024-08-17 19:43:00 37.17 Liya [facility] Respiratory rate 2024-08-17 19:43:00 18 /min [facility] Body height 2024-08-17 19:43:00 160 cm [facility] Body weight 2024-08-17 19:43:00 65.409 kg [facility] BMI 2024-08-17 19:43:00 25.54 kg/m2 [facility] Oxygen saturation in Arterial blood by Pulse oximetry 2024-08-17 19:43:00 95 /min [facility] Systolic blood pressure 2022-10-27 18:11:00 127 mm[Hg] [...] End Date/Time Encounter Type Admission Type Attending Clinicians Care Facility Care Department Encounter ID Source 2022-10-20 13:04:31 Outpatient [facility] [id number] [facility] 2022-07-22 13:50:29 Outpatient [facility] [id number] [facility] 2024-08-17 14:00:00 2024-08-17 15:09:55 Urgent Care R RADHA NAVAS [facility] [id number] [facility] [id number] [facility] 2023-10-28 11:00:00 2023-10-28 11:00:00 Outpatient SUZETTE ASENCIO [facility] [id number] [facility] 2022-10-27 13:00:00 2022-10-27 13:33:58 Office Visit Suzette Asencio [facility] 2 [id number] [facility] 2022-10-27 11:00:00 2022-10-27 11:00:00 Outpatient SUZETTE ASENCIO [facility] [id number] [facility] 2021-08-13 14:15:00 2021-08-13 14:15:00 Outpatient SUZETTE ASENCIO [facility] [id number] [facility] 2021-07-15 00:00:00 2021-07-15 00:00:00 Telephone Suzette Asencio [facility] 2 [id number] [facility] 2021-07-15 00:00:00 2021-07-15 00:00:00 Telephone Yuliet Goff Delana [facility] [id number] [facility] 2021-06-27 11:00:00 2021-06-27 11:15:00 Office Visit Suzette Asencio [facility] 2 [id number] [facility] 2021-06-24 00:00:00 2021-06-24 00:00:00 Telephone Yuliet Goff Delana [facility] [id number] [facility] 2021-05-10 13:00:00 2021-05-10 13:30:00 Office Visit SUZETTE ASENCIO [facility] 2 [id number] [facility] 2019-10-25 13:06:00 2019-10-25 13:06:00 Outpatient SUZETTE ASENCIO [facility]
[2024-10-26] MEDS ORDERED: ACETAMINOPHEN 325 MG TABLET ONE (11:38)
[2024-10-26] MEDS ORDERED: ONDANSETRON 4 MG/2 ML VIAL ONE (11:38)
[2024-10-26] MEDS ORDERED: NA CHLORIDE 0.9% 1,000 ML ONE ×2 (11:39→18:13)
[2024-10-26] MEDS ORDERED: MORPHINE 4 MG/ML SYR ONE (11:39)
[2024-10-26 11:48] LABS: Absolute Lymphocytes (CBC) 0.6 K/uL (0.7-4.9); Hematocrit 36.9 % (39.6-49.0); Hemoglobin 12.7 g/dL (13.6-17.9); MCH 29.3 pg (27.0-35.0); MCHC 34.3 g/dL (32.0-36.0); MCV 85.3 fL (80-100); MPV 7.4 fL (7.6-11.3); Nucleated RBC Absolute Count 0.0 (0-0); Nucleated Red Blood Cells % 0.0 % (0-0); RBC Red Blood Cell Count 4.33 M/uL (4.33-5.43); White Blood Count 13.80 thou/uL (4.3-10.9)
[2024-10-26 11:59] LABS: Urine WBC Clump Rare /HPF (None Seen)
[2024-10-26 12:04] LABS: ALT/SGPT 71.0 U/L (16-61); AST/SGOT 52.0 U/L (15-37); Albumin 2.5 g/dL (3.4-5.0); Albumin/Globulin Ratio 0.4 (1.1-1.8); Alkaline Phosphatase 154.0 U/L (45-117); Anion Gap 11.2 mEq/L (5.0-15.0); BUN Blood Urea Nitrogen 9.0 mg/dL (7-18); Globulin 5.8 g/dL (2.3-3.5); Glucose Level 108.0 mg/dL (74-106); Lipase 32.0 U/L (13-75); Potassium 3.2 mEq/L (3.5-5.1)
[2024-10-26 12:08] LABS: Sqamous Epithelial <5 /HPF (None Seen); Urine Crystals Unidentified Few /HPF (None Seen); Urine Culture Reflex Order NOT NEEDED; Urine Microscopic Reflex YN ORDER UMIC; Urine Yeast (Budding) Trace /HPF (None Seen)
[2024-10-26 12:08] LABS: Influenza A Ag Negative; Influenza B Ag Negative; SARS-CoV-2 Antigen Rapid Res Negative (Negative)
--- NOTE | 2024-10-26 12:30 | RAD REPORT ---
EXAMINATION: CT Abdomen Pelvis W Contrast CLINICAL INDICATION: Male, 29 years old. ABD PAIN TECHNIQUE: CT abdomen and pelvis was performed, after the administration of IV contrast, as per [facility] protocol. Axial, sagittal and coronal reconstructions were obtained. One or more of the following dose reduction techniques were used: Automated exposure control, adjustment of the mA and k V according to patient size, and iterative reconstruction. Unless otherwise specified, incidental findings do not require dedicated imaging follow-up. COMPARISON: No prior exam. FINDINGS: LOWER CHEST: The visualized lung bases are clear. LIVER: Normal in size and contour. No focal lesion. BILIARY SYSTEM: Status post cholecystectomy. No suspicious abnormalities. SPLEEN: Normal size. No focal lesion. PANCREAS: No mass, ductal dilation, or serena-pancreatic fluid. ADRENALS: Normal; no mass. KIDNEYS: Normal size on the left. Stable mild atrophy and contour lobulations of the right kidney, boston ggesting multifocal scarring, possibly in the setting of prior infectious processes. No hydronephrosis. URINARY BLADDER: Unremarkable. GASTROINTESTINAL TRACT: No evidence of free air, significant intra-abdominal free fluid, bowel obstru ction or abscess. APPENDIX: Normal appendix. LYMPH NODES: No lymphadenopathy. MUSCULOSKELETAL: No acute or suspicious osseous abnormality. ADDITIONAL FINDINGS: Pronounced inflammatory changes centered on the left mesorectal fat, tracking cr anially along the adventitia of the distal sigmoid to the level of the L5 vertebral body. Multiple mildly enlarged pelvic hyperenhancing lymph nodes up to 1 cm in short axis. No appreciable fluid mariana ections. IMPRESSION: Nonspecific pronounced inflammatory changes centered on the left mesorectal fat, without a discrete f luid collection. Findings are not entirely specific, but could relate to infectious or inflammatory panniculitis.
--- NOTE | 2024-10-26 12:56 | ER ---
Nurse's Notes [facility] Name: Reji Sheriff Age: 29 yrs Sex: Male : 1995 Arrival Date: 10/26/2024 Time: 10:10 Bed 19 Private MD: Diagnosis: Inflammatory panniculitis, leukocytosis, abdominal pain, fever Presentation: 10/26 10:18 Chief complaint: Patient states: he has been having abdominal pain for approx one week. ap3 patient reports seeing his PCP and was dx with an ear infections. patient reports nausea and some vomiting. patient denies diarrhea. patient currently rates his pain as a 9/10 on the pain scale. Coronavirus screen: At this time, the client does not indicate any symptoms associated with coronavirus-19. Ebola Screen: No symptoms or risks identified at this time. Initial Sepsis Screen: Does the patient meet any 2 criteria? HR > 90 bpm. Does the patient have a suspected source of infection? No. Patient's initial sepsis screen is negative. Risk Assessment: Do you want to hurt yourself or someone else? Patient reports no desire to harm self or others. Onset of symptoms is unknown. 10:18 Method Of Arrival: Ambulatory ap3 10:18 Acuity: VIVEK 3 ap3 Triage Assessment: 10:21 General: Appears in no apparent distress. Behavior is calm, cooperative, appropriate ap3 for age. Pain: Complains of pain in abdomen. Neuro: Level of Consciousness is awake, alert, obeys commands, Oriented to person, place, time, situation, Appropriate for age. Cardiovascular: Patient's skin is warm and dry. Respiratory: Airway is patent Respiratory effort is even, unlabored, Respiratory pattern is regular, symmetrical. GI: Reports lower abdominal pain, upper abdominal pain, nausea, vomiting. Historical: - Allergies: 10:20 No Known Allergies; ap3 - PMHx: 10:20 Deaf; GERD; Seizures; ap3 - PSHx: 10:20 cochlear implant; ap3 - Immunization history:: Adult Immunizations up to date. - Infectious Disease History:: Denies. - Social history:: Smoking status: Patient denies any tobacco usage or history of. Screenin:07 [facility] ED Fall Risk Assessment (Adult) History of falling in the last 3 months, me1 including since admission No falls in past 3 months (0 pts) Confusion or Disorientation No (0 pts) Intoxicated or Sedated No (0 pts) Impaired Gait No (0 pts) Mobility Assist Device Used No (0 pt) Altered Elimination No (0 pt) Score/Fall Risk Level 0 - 2 = Low Risk Maintained a safe environment, Provided non-skid footwear, Hourly rounding (assess needs \T\ fall precautionary measures) done. Abuse screen: Denies threats or abuse. Nutritional screening: No deficits noted. Tuberculosis screening: No symptoms or risk factors identified. Assessment: 11:07 General: Appears ill, well groomed, well developed, well nourished, Behavior is calm, me1 cooperative, appropriate for age, Reports he has been having abdominal pain for approx one week. patient reports seeing his PCP and was dx with an ear infections. patient reports nausea and some vomiting. patient denies diarrhea. patient currently rates his pain as a 9/10 on the pain scale. Pain: Complains of pain in right lower quadrant and left lower quadrant Pain does not radiate. Pain currently is 9 out of 10 on a pain scale. Quality of pain is described as dull, Pain began about a week ago Is continuous. Neuro: Level of Consciousness is awake, alert, obeys commands, Oriented to person, place, time, situation, Appropriate for age. Cardiovascular: Patient's skin is warm and dry. Respiratory: Airway is patent Respiratory effort is even, unlabored, Respiratory pattern is regular, symmetrical. GI: Abdomen is non-distended, Bowel sounds present X 4 quads. Abd is soft X 4 quads Reports lower abdominal pain, nausea, vomiting, since about a week ago Patient currently denies diarrhea. : Reports burning with urination, pain in suprapubic area. EENT: No signs and/or symptoms were reported regarding the EENT system. EENT: deaf bilaterally. Derm: Skin is intact, is healthy with good turgor, Skin is pink, warm \T\ dry. Musculoskeletal: No signs and/or symptoms reported regarding the musculoskeletal system. 12:10 General: Appears in no apparent distress. distressed, comfortable, Behavior is calm, rg5 cooperative, appropriate for age. Pain: Complains of pain in right lower quadrant and left lower quadrant Quality of pain is described as aching. 12:10 Neuro: Level of Consciousness is awake, alert, obeys commands, Oriented to person, rg5 place, time, situation. Cardiovascular: Patient's skin is warm and dry. Respiratory: Airway is patent Trachea midline Respiratory effort is even, unlabored, Respiratory pattern is regular, symmetrical. GI: Abdomen is flat, non-distended, Reports lower abdominal pain, nausea, vomiting. : Reports burning with urination. EENT: No signs and/or symptoms were reported regarding the EENT system. Derm: Skin is intact, Skin is dry, Skin is normal. Musculoskeletal: Circulation, motion, and sensation intact. Range of motion: intact in all extremities. Vital Signs: 10:18 BP 102 / 68; Pulse 98; Resp 18; Temp 100.2(O); Weight 67.59 kg; Height 5 ft. 3 in. ; ap3 11:45 BP 123 / 72; Pulse 109; Resp 16; Pulse Ox 98% ; me1 12:41 BP 107 / 54; Pulse 100; Resp 18; Pulse Ox 94% on R/A; Pain 5/10; rg5 13:35 BP 99 / 51; Pulse 99; Resp 18; Pulse Ox 97% on R/A; rg5 14:30 BP 111 / 74; Pulse 112; Resp 18; Pulse Ox 95% ; Pain 0/10; rg5 17:00 BP 127 / 75; Pulse 117; Resp 19; Pulse Ox 98% on R/A; rg5 18:00 BP 124 / 81; Pulse 100; Resp 18; Pulse Ox 98% ; rg5 10:18 Body Mass Index 26.39 (67.59 kg, 160.02 cm) ap3 12:41 Pain Scale: Adult rg5 14:30 Pain Scale: Adult rg5 ED Course: 10:13 Patient arrived in ED. im 10:13 Telly Courtney MD is Attending Physician. sp3 10:20 Triage completed. ap3 11:07 No provider procedures requiring assistance completed. me1 11:07 Patient has correct armband on for positive identification. Bed in low position. Call me1 light in reach. Side rails up X2. Provided Education on: POC. Verbalized understanding.. Client placed on continuous cardiac and pulse oximetry monitoring. NIBP monitoring applied. Pulse ox on. NIBP on. 11:17 Marcelina Campos, SHANTA is Primary Nurse. me1 11:33 Initial lab(s) drawn, by me, sent to lab. First set of blood cultures drawn by la, me1 COVID swab sent to lab. Flu and/or RSV swab sent to lab. 11:36 Inserted saline lock: 22 gauge in left antecubital area, using aseptic technique. me1 11:36 CBC with Diff Sent. me1 11:36 CMP Sent. me1 11:36 Lipase Sent. me1 11:36 COVID-19 Ag + Flu A+B Ag Sent. me1 11:42 Second set of blood cultures drawn by la. me1 11:47 Urine collected: clean catch specimen, cloudy, marilee colored. me1 12:01 CT Abd/Pelvis - IV Contrast Only In Process Unspecified. EDMS 12:54 Juan M Spangler MD is Hospitalizing Provider. 3 14:17 Patient admitted, IV remains in place. intact, No redness/swelling at site. rg5 Administered Medications: 11:47 Drug: NS 0.9% IV 1000 ml IV at 1 bolus Per protocol; to be given as a bolus over 60 me1 minutes Route: IV; Rate: 1 bolus; Site: left antecubital; 13:00 Follow up: IV Status: Completed infusion; IV Intake: 1000ml rg5 11:47 Drug: Acetaminophen PO 650 mg PO once Route: PO; me1 12:38 Follow up: Response: No adverse reaction; Pain is decreased rg5 11:47 Drug: morphine IVP or IV 4 mg IVP once over 4 mins Route: IVP; Infused Over: 4 mins; la1 Site: left antecubital; 12:38 Follow up: Response: No adverse reaction; Pain is decreased rg5 11:47 Drug: Ondansetron IVP 4 mg IVP once; over 2 minutes Route: IVP; Site: left antecubital; la1 12:38 Follow up: Response: No adverse reaction rg5 13:14 Drug: Piperacillin-Tazobactam IVPB 3.375 grams IVPB once over 60 mins; (mix in NS 100 rg5 mL) Route: IVPB; Infused Over: 60 mins; Site: right antecubital; 14:17 Follow up: IV Status: Completed infusion; IV Intake: 100ml rg5 Medication: 11:07 VIS not applicable for this client. me1 Intake: 13:00 IV: 1000ml; Total: 1000ml. rg5 14:17 IV: 100ml; Total: 1100ml. rg5 Outcome: 12:55 Decision to Hospitalize by Provider. sp3 14:16 Admitted to ER Hold. Please see [facility] for further documentation. rg5 14:16 Condition: stable 14:16 Instructed on the need for admit, 20:00 Patient left the ED. rg5 Signatures: Dispatcher [employer] Kimberlee Dickinson RN RN ap3 Telly Courtney MD MD sp3 Libby De La Cruz Michelle, RN RN me1 Marcello Rosenthal RN RN rg5 Corrections: (The following items were deleted from the chart) 12:05 10:18 Chief complaint: Patient states: he has been having abdominal pain for approx one me1 week. patient reports seeing his PCP and was dx with an ear infections. patient reports nausea and some vomiting. patient denies diarrhea. patient currently rates his pain as a 9/10 on the pain scale ap3
--- NOTE | 2024-10-26 12:56 | EDPHYS ---
Physician Documentation [facility] Name: Reji Sheriff Age: 29 yrs Sex: Male : 1995 Arrival Date: 10/26/2024 Time: 10:10 Bed 19 Private MD: ED Physician Telly Courtney HPI: 10/26 11:21 This 29 yrs old Male presents to ER via Ambulatory with complaints of sp3 Abdominal Pain. 11:21 29-year-old male with history of hearing impairment, seizures, status post sp3 cholecystectomy now presents to the ED with chief complaint right lower quadrant abdominal pain, subjective fever and generalized weakness. He also states he has mild dysuria. Everything is to a sign hourly sign language interpreter who is a family member. He denies any headache, shortness of breath, chest pain, upper respiratory symptoms, cough, vomiting or diarrhea, bleeding, rash, known sick contacts, travel history, or any other signs of symptoms on ROS at this time.. Historical: - Allergies: 10:20 No Known Allergies; ap3 - PMHx: 10:20 Deaf; GERD; Seizures; ap3 - PSHx: 10:20 cochlear implant; ap3 - Immunization history:: Adult Immunizations up to date. - Infectious Disease History:: Denies. - Social history:: Smoking status: Patient denies any tobacco usage or history of. ROS: 11:22 Eyes: Negative for injury, pain, redness, and discharge, ENT: Negative for injury, sp3 pain, and discharge, Neck: Negative for injury, pain, and swelling, Cardiovascular: Negative for chest pain, palpitations, and edema, Respiratory: Negative for shortness of breath, cough, wheezing, and pleuritic chest pain, Back: Negative for injury and pain, MS/Extremity: Negative for injury and deformity, Skin: Negative for injury, rash, and discoloration, Neuro: Negative for headache, weakness, numbness, tingling, and seizure, Psych: Negative for depression, anxiety, suicide ideation, homicidal ideation, and hallucinations, Allergy/Immunology: Negative for hives, rash, and allergies, Endocrine: Negative for neck swelling, polydipsia, polyuria, polyphagia, and marked weight changes, 11:22 All other systems are negative, Exam: 11:22 Constitutional: This is a well developed, well nourished patient who is awake, alert, sp3 and in no acute distress. Head/Face: Normocephalic, atraumatic. Eyes: Pupils equal round and reactive to light, extra-ocular motions intact. Lids and lashes normal. Conjunctiva and sclera are non-icteric and not injected. Cornea within normal limits. Periorbital areas with no swelling, redness, or edema. Neck: Trachea midline, no thyromegaly or masses palpated, and no cervical lymphadenopathy. Supple, full range of motion without nuchal rigidity, or vertebral point tenderness. No Meningismus. Chest/axilla: Normal chest wall appearance and motion. Nontender with no deformity. No lesions are appreciated. Cardiovascular: Regular rate and rhythm with a normal S1 and S2. No gallops, murmurs, or rubs. Normal PMI, no JVD. No pulse deficits. Respiratory: Lungs have equal breath sounds bilaterally, clear to auscultation and percussion. No rales, rhonchi or wheezes noted. No increased work of breathing, no retractions or nasal flaring. Back: No spinal tenderness. No costovertebral tenderness. Full range of motion. Skin: Warm, dry with normal turgor. Normal color with no rashes, no lesions, and no evidence of cellulitis. MS/ Extremity: Pulses equal, no cyanosis. Neurovascular intact. Full, normal range of motion. Neuro: Awake and alert, GCS 15, oriented to person, place, time, and situation. Cranial nerves II-XII grossly intact. Motor strength 5/5 in all extremities. Sensory grossly intact. Cerebellar exam normal. Normal gait. 11:22 Abdomen/GI: Patient with right lower quadrant abdominal pain to palpation without peritoneal signs, rebound or guarding., Vital Signs: 10:18 BP 102 / 68; Pulse 98; Resp 18; Temp 100.2(O); Weight 67.59 kg; Height 5 ft. 3 in. ; ap3 11:45 BP 123 / 72; Pulse 109; Resp 16; Pulse Ox 98% ; me1 12:41 BP 107 / 54; Pulse 100; Resp 18; Pulse Ox 94% on R/A; Pain 5/10; rg5 13:35 BP 99 / 51; Pulse 99; Resp 18; Pulse Ox 97% on R/A; rg5 14:30 BP 111 / 74; Pulse 112; Resp 18; Pulse Ox 95% ; Pain 0/10; rg5 17:00 BP 127 / 75; Pulse 117; Resp 19; Pulse Ox 98% on R/A; rg5 18:00 BP 124 / 81; Pulse 100; Resp 18; Pulse Ox 98% ; rg5 10:18 Body Mass Index 26.39 (67.59 kg, 160.02 cm) ap3 12:41 Pain Scale: Adult rg5 14:30 Pain Scale: Adult rg5 MDM: 10:23 Medical Screening Exam initiated sp3 11:25 Data reviewed: vital signs, nurses notes, lab test result(s), radiologic studies. ED sp3 course: 29-year-old male with right lower quadrant abdominal pain. Differential diagnosis includes appendicitis, UTI/pyelonephritis spectrum, kidney stone/ureterolithiasis, spectrum other GI pathology, viral illness, among others. Patient also states that he was seen by his PCP who did swabs in the office which were negative. We will repeat those labs here as well. Workup include CT scan of the abdomen pelvis with IV contrast, general labs, IV hydration and pain control. Disposition pending workup patient course.. 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 No fluid collection sp3 noted. I discussed case with Dr. Pressley who will be seen in consultation and suggest IV antibiotics and admit to internal medicine for serial abdominal exams and general observation.. 10/26 10:32 Order name: CBC with Diff; Complete Time: 12:43 sp3 10/26 10:32 Order name: CMP; Complete Time: 12:43 sp3 10/26 10:32 Order name: Lipase; Complete Time: 12:43 sp3 10/26 10:32 Order name: COVID-19 Ag + Flu A+B Ag; Complete Time: 12:43 sp3 10/26 10:32 Order name: UA Rfx Ashish Cult if indicated; Complete Time: 12:43 sp3 10/26 10:32 Order name: Blood Culture Adult (2) sp3 10/26 15:41 Order name: CBC with Automated Diff EDMS 10/26 15:41 Order name: CBC with Automated Diff EDMS 10/26 15:41 Order name: Comprehensive Metabolic Panel EDMS 10/26 15:41 Order name: Comprehensive Metabolic Panel EDMS 10/26 15:41 Order name: Protime (+INR) EDMS 10/26 15:41 Order name: Protime (+INR) EDMS 10/26 15:41 Order name: PTT, Activated Partial Thromb EDMS 10/26 15:41 Order name: PTT, Activated Partial Thromb EDMS 10/26 15:41 Order name: Troponin High Sensitivity EDMS 10/26 15:41 Order name: Troponin High Sensitivity EDMS 10/26 15:59 Order name: HIV 1 RNA, QL RTPCR EDMS 10/26 15:59 Order name: Miscellaneous Test Lab EDMS 10/26 16:00 Order name: Potassium EDMS 10/26 16:00 Order name: Potassium EDMS 10/26 10:32 Order name: CT Abd/Pelvis - IV Contrast Only; Complete Time: 12:43 sp3 10/26 10:32 Order name: IV Saline Lock; Complete Time: 11:36 sp3 10/26 10:32 Order name: Labs collected and sent; Complete Time: 11:36 sp3 Administered Medications: 11:47 Drug: NS 0.9% IV 1000 ml IV at 1 bolus Per protocol; to be given as a bolus over 60 me1 minutes Route: IV; Rate: 1 bolus; Site: left antecubital; 13:00 Follow up: IV Status: Completed infusion; IV Intake: 1000ml rg5 11:47 Drug: Acetaminophen PO 650 mg PO once Route: PO; me1 12:38 Follow up: Response: No adverse reaction; Pain is decreased rg5 11:47 Drug: morphine IVP or IV 4 mg IVP once over 4 mins Route: IVP; Infused Over: 4 mins; me1 Site: left antecubital; 12:38 Follow up: Response: No adverse reaction; Pain is decreased rg5 11:47 Drug: Ondansetron IVP 4 mg IVP once; over 2 minutes Route: IVP; Site: left antecubital; me1 12:38 Follow up: Response: No adverse reaction rg5 13:14 Drug: Piperacillin-Tazobactam IVPB 3.375 grams IVPB once over 60 mins; (mix in NS 100 rg5 mL) Route: IVPB; Infused Over: 60 mins; Site: right antecubital; 14:17 Follow up: IV Status: Completed infusion; IV Intake: 100ml rg5 Disposition Summary: 10/26/24 12:55 Hospitalization Ordered Notes: Hospitalization Status: Observation sp3 Provider: Juan M Spangler sp3 Location: Telemetry/MedSurg (observation) sp3 Condition: Stable sp3 Problem: new sp3 Symptoms: are unchanged sp3 Bed/Room Type: Standard sp3 Room Assignment: 225(10/26/24 18:28) ss Diagnosis - Inflammatory panniculitis, leukocytosis, abdominal pain, fever sp3 Forms: - Medication Reconciliation Form sp3 - SBAR form sp3 - Leadership Thank You Letter sp3 Signatures: Dispatcher [employer] EDMS Vijay Sandra bd Joana Mueller, SHANTA RN ss Kimberlee Carlson RN RN ap3 Telly Courtney MD MD sp3 Marcelina Campos RN RN me1 Marcello Rosenthal RN RN rg5 Corrections: (The following items were deleted from the chart) 10:33 10:32 CBC+H.LAB.BRZ ordered. EDMS EDMS 10:33 10:33 COMPREHENSIVE METABOLIC PANEL+C.LAB.BRZ ordered. EDMS EDMS 10:33 10:33 LIPASE+C.LAB.BRZ ordered. EDMS EDMS 10:33 10:33 COVID-19 Ag + Flu A+B Ag+I.LAB.BRZ ordered. EDMS EDMS 10:33 10:33 UA Rfx Ashish Cult if indicated+U.LAB.BRZ ordered. EDMS EDMS 10:33 10:33 BLOOD CULTURE*+BA.LAB.BRZ ordered. EDMS EDMS 10:33 10:33 Abdomen Pelvis W Con+CT.RAD.BRZ ordered. EDMS EDMS 18:28 12:55 sp3 bd 18:28 18:28 225 bd ss
[2024-10-26] MEDS ORDERED: PIPERACIL/TAZO 3.375 GM VIAL IV ONE (13:09)
[2024-10-26] MEDS ORDERED: NA CHLORIDE 0.9% 100 ML ONE (13:09)
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
[2024-10-26] MEDS ORDERED: ONDANSETRON 4 MG/2 ML VIAL IV PRN (15:34)
--- NOTE | 2024-10-26 15:59 | P.HP ---
Certification for Inpatient Patient admitted to: Inpatient With expected LOS: >2 Midnights Patient will require the following post-hospital care: None Practitioner: I am a practitioner with admitting privileges, knowledge of patient current condition, hospital course, and medical plan of care. Services: Services provided to patient in accordance with Admission requirements found in Title 42 Section 412.3 of the Code of Federal Regulations Patient History Date of Service: 10/26/24 Reason for admission: Abdominal pain History of Present Illness: Patient is a 29-year-old gentleman who came to the hospital with abdominal pain. Patient is hearing impaired and communicate with him through sign language. Patient with a history of seizure disorder. Patient has been having pain in the right lower quadrant along with fever and generalized weakness. He was recently seen by ENT for a sinus mass. Biopsies confirmed Kaposi's sarcoma. Concern for HIV. Patient will get a CD4 count and HIV viral load. Patient having abdominal pain with subjective fever. Concerning for opportunistic infection. Will get infectious disease consultation. Patient will be admitted for inpatient hospitalization. Allergies No Known Allergies Allergy (Verified 09/27/24 13:47) Home Medications: OXcarbazepine [Oxcarbazepine] 300 mg PO BID 08/01/21 - Past Medical/Surgical History Diabetic: No -: GERD -: seizures -: deaf -: cochlear implant (did not work) -: Thumb removed - Family History Father Family History: Reviewed- Non-Contributory - Social History Smoking Status: Unknown if ever smoked Alcohol use: No CD- Drugs: No Caffeine use: Yes Review of Systems 10-point ROS is otherwise unremarkable Physical Examination - Vital Signs Temperature: 99 F Blood Pressure: 110/60 Pulse: 80 Respirations: 18 Pulse Ox (%): 95 - Physical Exam General: Alert, In no apparent distress, Oriented x3 HEENT: Atraumatic, PERRLA, Mucous membr. moist/pink, EOMI, Sclerae nonicteric Neck: Supple, 2+ carotid pulse no bruit, No LAD, Without JVD or thyroid abnormality Respiratory: Clear to auscultation bilaterally, Normal air movement Cardiovascular: Regular rate/rhythm, Normal S1 S2 Gastrointestinal: Normal bowel sounds, Soft and benign, Non-distended, Tenderness Musculoskeletal: No clubbing, No swelling, No tenderness Integumentary: No rashes Neurological: Normal gait, Normal speech, Normal strength at 5/5 x4 extr, Normal tone, Normal affect Lymphatics: No axilla or inguinal lymphadenopathy - Studies Laboratory Data (last 24 hrs) 10/26/24 10/26/24 11:33 11:33 WBC 13.80 H Hgb 12.7 L Hct 36.9 L Plt Count 301 Sodium 131 L Potassium 3.2 L BUN 9 Creatinine 1.01 Glucose 108 H Total Bilirubin 0.9 AST 52 H ALT 71 H Alkaline Phosphatase 154 H Lipase 32 Assessment & Plan - Problems (Diagnosis) (1) Abdominal pain Current Visit: Yes Status: Acute (2) HIV (human immunodeficiency virus infection) Current Visit: Yes Status: Acute (3) Kaposis sarcoma Current Visit: Yes Status: Acute - Plan Plan: 1. Patient with abdominal pain; unknown etiology. Concern for opportunistic infection. Will check stool studies and monitor clinical symptoms. May need CT imaging for further evaluation. Concern for disseminated Kaposi's sarcoma. 2. Nasal lesions secondary to Kaposi's sarcoma of the naris. ENT did this as an outpatient. CD4 count and HIV viral load pending. Workup for disseminated Kaposi's sarcoma. 3. Monitor for additional opportunistic infections. Patient does not want his family to know what is going on so we will be mindful of this fact 4. GI DVT prophylaxis Discharge Plan: Home Plan to discharge in: Greater than 2 days - Advance Directives Does patient have a Living Will: No Does patient have a Durable POA for Healthcare: No - Code Status/Comfort Care Code Status Assessed: Yes Code Status: Full Code Critical Care: No Time Spent Managing PTS Care (In Minutes): 45
[2024-10-26] MEDS: KCL 20 MEQ/100 mL IVPB 100 ML IV SCH (16:00)
[2024-10-26] MEDS: NA CHLORIDE 0.9% 1,000 ML IV SCH (18:12)
[2024-10-26] MEDS ORDERED: KCL 20 MEQ/100 mL IVPB 100 ML IV ONE (18:14)
--- NOTE | 2024-10-26 18:16 | P.PN ---
Date of Service: 10/26/24 Patient was scheduled for outpatient FU for lab results but was notified of ER visit and pending admission for abd pain. Patient seen in person with [facility] service department manager and PCP Dr Lissett Pressley. We discussed that outpatient lab confirm HIV1 positivity and with confirmed kaposi sarcoma on nasal and oral neoplams recently, this confirms AIDS diagnosis. Patient expressed understanding and will work with PCP for managment of this disease including outpatient infectious disease. At this time, patient requests maintenance of privacy especially in regards to these new diagnoses and requests that information not be shared with his mother at this time. He is encouraged to share with a family member regarding his medical conditions so that they can help provide support and assist with medical transportation, etc. No additional acute ENT interventions indicated at this time but will remain available as needed.
[2024-10-26] MEDS: ACETAMINOPHEN 500 MG TAB PO PRN (21:08)
[2024-10-26] MEDS: MORPHINE 2 MG/ML SYR IV PRN (23:49)
[2024-10-27 04:33] LABS: Absolute Lymphocytes (CBC) 0.7 K/uL (0.7-4.9); Hematocrit 33.5 % (39.6-49.0); Hemoglobin 11.7 g/dL (13.6-17.9); MCH 30.2 pg (27.0-35.0); MCHC 35.0 g/dL (32.0-36.0); MCV 86.2 fL (80-100); MPV 7.1 fL (7.6-11.3); Nucleated RBC Absolute Count 0.0 (0-0); Nucleated Red Blood Cells % 0.0 % (0-0); RBC Red Blood Cell Count 3.88 M/uL (4.33-5.43); White Blood Count 15.00 thou/uL (4.3-10.9)
[2024-10-27 04:45] LABS: PT Prothrombin Time 16.5 SECONDS (10-13.0); PTT, Activated Partial Thromb 29.1 SECONDS (27.2-37.4); Protime INR 1.48
[2024-10-27 04:56] LABS: ALT/SGPT 50.0 U/L (16-61); AST/SGOT 25.0 U/L (15-37); Albumin 2.1 g/dL (3.4-5.0); Albumin/Globulin Ratio 0.4 (1.1-1.8); Alkaline Phosphatase 115.0 U/L (45-117); Anion Gap 10.7 mEq/L (5.0-15.0); BUN Blood Urea Nitrogen 8.0 mg/dL (7-18); Globulin 5.1 g/dL (2.3-3.5); Glucose Level 99.0 mg/dL (74-106); Potassium 3.7 mEq/L (3.5-5.1)
[2024-10-27] MEDS: METHYLPREDNISOLONE 125 MG INJ IV SCH (05:31)
[2024-10-27 05:44] LABS: Blood Morphology Comment NOT SEEN (NOT SEEN); Differential Total Cells Count 100; Segmented Neutrophils 50 % (40-80); Toxic Granulation 3+
[2024-10-27] MEDS: PIPER TAZO 3.375 GM in NA CHLORIDE 0.9% 100 ML IV SCH (10:01)
--- NOTE | 2024-10-27 12:27 | PN ---
Date of Progress Note: 10/27/2024 Subjective: The patient is awake and alert, is somewhat hungry. He has very minimal lower abdominal pain. Objective: Vital Signs: Stable. He is afebrile. Abdomen: Soft, nondistended. Positive bowel sounds. Minimal left lower quadrant suprapubic tendern ess. No rebound. No rigidity or guarding. Laboratory Data: His white count has gone up slightly at 15,000 with a left shift. Chemistry review ed, essentially unremarkable. Assessment: Proctitis. Recommendations: Continue antibiotics. We will start the patient on clear liquids and advance slowl y. We will follow this patient while in the hospital. BRYAN/BOBO Voice ID: [id number] Report ID: [id number]
[2024-10-28] MEDS: WATER FOR INJ,STERILE 10 ML ONE ×2 (00:30→05:27)
--- NOTE | 2024-10-28 02:30 | P.PN ---
Subjective Date of Service: 10/27/24 Patient's symptoms improved. No new complaints. Clinically doing well. Awaiting CD4 count and HIV viral load pending. Review of Systems 10-point ROS is otherwise unremarkable Physical Examination - Vital Signs Temperature: 99 F Blood Pressure: 110/60 Pulse: 80 Respirations: 18 Pulse Ox (%): 95 - Physical Exam General: Alert, In no apparent distress, Oriented x3 HEENT: EOMI Neck: Supple, JVD not distended Respiratory: Clear to auscultation bilaterally, Normal air movement Cardiovascular: Regular rate/rhythm, Normal S1 S2 Gastrointestinal: Normal bowel sounds, Soft and benign, Non-distended, No tenderness Musculoskeletal: No clubbing, No swelling, No tenderness Neurological: Sensation intact, Cranial nerves 3-12 intact - Studies Medications List Reviewed: Yes Assessment & Plan - Problems (Diagnosis) (1) Abdominal pain Current Visit: Yes Status: Acute (2) HIV (human immunodeficiency virus infection) Current Visit: Yes Status: Acute (3) Kaposis sarcoma Current Visit: Yes Status: Acute - Plan Plan: Continue plan of care as mentioned below: 1. Patient with abdominal pain; unknown etiology. Concern for opportunistic infection. Will check stool studies and monitor clinical symptoms. May need CT imaging for further evaluation. Concern for disseminated Kaposi's sarcoma. 2. Nasal lesions secondary to Kaposi's sarcoma of the naris. ENT did this as an outpatient. CD4 count and HIV viral load pending. Workup for disseminated Kaposi's sarcoma. 3. Monitor for additional opportunistic infections. Patient does not want his family to know what is going on so we will be mindful of this fact 4. GI DVT prophylaxis Discharge Plan: Home Plan to discharge in: Greater than 2 days - Advance Directives Does patient have a Living Will: No Does patient have a Durable POA for Healthcare: No - Code Status/Comfort Care Code Status: Full Code Critical Care: No Time Spent Managing PTS Care (In Minutes): 35
[2024-10-28 09:17] LABS: Absolute Lymphocytes (CBC) 0.6 K/uL (0.7-4.9); Hematocrit 35.3 % (39.6-49.0); Hemoglobin 12.0 g/dL (13.6-17.9); MCH 29.0 pg (27.0-35.0); MCHC 34.0 g/dL (32.0-36.0); MCV 85.3 fL (80-100); MPV 7.3 fL (7.6-11.3); Nucleated RBC Absolute Count 0.0 (0-0); Nucleated Red Blood Cells % 0.0 % (0-0); RBC Red Blood Cell Count 4.14 M/uL (4.33-5.43); White Blood Count 14.10 thou/uL (4.3-10.9)
--- NOTE | 2024-10-28 09:48 | P.PN ---
Date of Service: 10/28/24 Subjective: no events overnight denies fever and chills patient does not wish to disclose diagnosis with mom, family. 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 Recently seen by ENT for sinus mass. Biopsies confirmed Kaposi's sarcoma. Outpatient lab confirmed HIV1 per ENT. Patient to follow PCP/ID on outpatient basis. Patient requesting privacy with diagnosis - not to share with family including his mom. We will need to approach this topic carefully in a more sensitive environment. CT abd/pelvis (10/26): Nonspecific pronounced inflammatory changes centered on the left mesorectal fat, without a discrete fluid collection. Findings are not entirely specific, but could relate to infectious or inflammatory panniculitis. CD4 count and HIV viral load pending Continue empiric zosyn (10/27-) for 5 more days Starting TIVICAY and Truvada Blood cx: NGTD ENT/ID consulted. IV steroids, pain control Continue IV fluids Code: Full Dispo: Home Pending pain and n/v improve
--- NOTE | 2024-10-28 12:08 | PN ---
Date of Progress Note: 10/28/2024 Subjective: The patient is awake, alert. No abdominal pain. Tolerating diet. His white count is s till elevated at 14.1. Objective: Vital Signs: Stable. He is afebrile. Abdomen: Benign. Assessment: Proctitis. Recommendations: From surgical standpoint, the patient can be discharged home on oral antibiotics. The patient needs a colonoscopy in 4 to 6 weeks. Follow up with GI. There is no need for any acute surgical intervention. We discussed with the hospitalist team regarding discharge. /MODL Voice ID: [id number] Report ID: [id number]
[2024-10-28 13:10] LABS: Hepatitis B surface AG Interp. Nonreactive (Nonreactive)
[2024-10-28 13:11] LABS: HBsAG Nonreactive Report Report
[2024-10-28] MEDS: EMTRICITABINE/TENOFOVIR 1 TAB PO SCH (13:40)
[2024-10-28] MEDS: DOLUTEGRAVIR SODIUM 50 MG TABLET PO SCH (13:41)
--- NOTE | 2024-10-28 14:47 | P.CNS ---
Date of Consult: 10/28/24 reason for consult: newly dx HIV, biopsy show kaposi sarcoma HPI: 29-year-old male who came to the hospital with abdominal pain. CT abd /pelvis (10/26): Nonspecific pronounced inflammatory changes centered on the left mesorectal fat, without a discrete fluid collection. Findings are not entirely specific, but could relate to infectious or inflammatory panniculitis.He is hearing impaired and communicate through sign language and also jamaican writing. He was recently seen by ENT for a sinus mass. Biopsies confirmed Kaposi's sarcoma. He has HIV 1. CD4 count and HIV viral load pending. during assessment patient denied abdominal pain, lesions or fever. His mother does not know of his recent dx. Pt report does have sex with 4-5 different men before. Does not used condoms. wbc 14.1, pt is on high dose prednisone. He is currently on zosyn. VS stable Allergies No Known Allergies Allergy (Verified 09/27/24 13:47) Current Medications Acetaminophen (Acetaminophen 500 Mg Tab) 500 mg PO Q6H PRN PRN Reason: pain/fever Last Admin: 10/26/24 21:08 Dose: 500 mg Sodium Chloride (Ns 1000 Ml Ivbag) 1,000 mls @ 100 mls/hr IV .Q10H ORLY Last Admin: 10/28/24 08:39 Dose: 1,000 mls Piperacillin Sod/Tazobactam (Sod 3.375 gm/ Sodium Chloride) 100 mls @ 25 mls/hr IV Q8HR ORLY; Protocol Last Admin: 10/28/24 08:39 Dose: 100 mls Methylprednisolone Sodium Succinate (Methylprednisolone 125 Mg Inj) 60 mg IV Q6HR ORLY Last Admin: 10/28/24 12:04 Dose: 60 mg Morphine Sulfate (Morphine 2 Mg/Ml Syr) 2 mg IV Q4H PRN PRN Reason: Pain scale 5-7 (Moderate) Last Admin: 10/28/24 08:39 Dose: 2 mg Ondansetron HCl (Ondansetron 4 Mg/2 Ml Vial) 4 mg IV Q8H PRN PRN Reason: NAUSEA / VOMITING - Past Medical/Surgical History Diabetic: No -: GERD -: seizures -: deaf -: cochlear implant (did not work) -: Thumb removed - Family History Father Family History: Reviewed- Non-Contributory - Social History Smoking Status: Unknown if ever smoked Alcohol use: No CD- Drugs: No Caffeine use: Yes Review of Systems 10-point ROS is otherwise unremarkable objective Temp Pulse Resp BP Pulse Ox 97.7 F 98 H 15 120/60 95 10/28/24 12:00 10/28/24 12:00 10/28/24 12:00 10/28/24 12:00 10/28/24 12:00 Physical Exam General: Alert, In no apparent distress, Oriented x3, communicate via jamaican writings HEENT: PERRLA, EOMI, Neck: Supple, Without JVD or thyroid abnormality Respiratory: Clear to auscultation bilaterally Cardiovascular: Regular rate/rhythm, Normal S1 S2 Gastrointestinal: Normal bowel sounds, Soft and benign, Non-distended, Musculoskeletal: No clubbing, No swelling, No tenderness Integumentary: No rashes or skin lesions Neurological: Normal gait Microbiology 10/26/24 11:42 Blood - Blood Aerobic Blood Culture - Preliminary No growth in 24 hours. 10/26/24 11:42 Blood - Blood Anaerobic Blood Culture - Preliminary No growth in 24 hours. 10/26/24 11:33 Blood - Blood Aerobic Blood Culture - Preliminary No growth in 24 hours. 10/26/24 11:33 Blood - Blood Anaerobic Blood Culture - Preliminary No growth in 24 hours. assessment and planning 1. Intractable abdominal pain with nausea and vomiting 2. 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 HIV, newly diagnosis Biopsies confirmed Kaposi's sarcoma. Outpatient lab confirmed HIV1 per ENT Patient requesting privacy with diagnosis - not to share with family including his mom. CD4 count and HIV viral load pending HIV ag/Ab pending Hep B nonreactive recommend to start Tivicay and truvada daily. will need to follow up with PCP for chcf treatment continue zosyn x 5 days will continue to monitor for infection with wbc and fever trend thank you for the consult Dr Fernandes case discussed and in agreement with Dr trivedi
[2024-10-29] MEDS: WATER FOR INJ,STERILE 10 ML ONE (00:01)
[2024-10-29 03:06] VITALS: O2SAT 95
[2024-10-29 05:21] LABS: Absolute Lymphocytes (CBC) 0.5 K/uL (0.7-4.9); Hematocrit 35.3 % (39.6-49.0); Hemoglobin 12.1 g/dL (13.6-17.9); MCH 29.4 pg (27.0-35.0); MCHC 34.4 g/dL (32.0-36.0); MCV 85.4 fL (80-100); MPV 7.2 fL (7.6-11.3); Nucleated RBC Absolute Count 0.0 (0-0); Nucleated Red Blood Cells % 0.3 % (0-0); RBC Red Blood Cell Count 4.13 M/uL (4.33-5.43); White Blood Count 10.90 thou/uL (4.3-10.9)
[2024-10-29 07:48] LABS: ALT/SGPT 38.0 U/L (16-61); AST/SGOT 24.0 U/L (15-37); Albumin 2.1 g/dL (3.4-5.0); Albumin/Globulin Ratio 0.4 (1.1-1.8); Alkaline Phosphatase 93.0 U/L (45-117); Anion Gap 9.7 mEq/L (5.0-15.0); BUN Blood Urea Nitrogen 11.0 mg/dL (7-18); Globulin 4.9 g/dL (2.3-3.5); Glucose Level 143.0 mg/dL (74-106); Potassium 3.7 mEq/L (3.5-5.1)
--- NOTE | 2024-10-29 14:28 | P.PN ---
Date of Service: 10/29/24 Subjective: no events overnight Otherwise doing well Discussed continuing his IV antibiotics at this time. 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 Recently seen by ENT for sinus mass. Biopsies confirmed Kaposi's sarcoma. Outpatient lab confirmed HIV1 per ENT. Patient to follow PCP/ID on outpatient basis. Patient requesting privacy with diagnosis - not to share with family including his mom. We will need to approach this topic carefully in a more sensitive environment. CT abd/pelvis (10/26): Nonspecific pronounced inflammatory changes centered on the left mesorectal fat, without a discrete fluid collection. Findings are not entirely specific, but could relate to infectious or inflammatory panniculitis. CD4 count and HIV viral load pending Continue empiric zosyn (10/27-) for 4 more days Starting TIVICAY and Truvada Blood cx: NGTD ENT/ID consulted. Stop Solu-Medrol as this can exacerbate Kaposi's sarcoma symptoms Continue IV fluids Leukocytosis resolved Code: Full Dispo: Home Pending pain and n/v improve
[2024-10-30 02:32] VITALS: BMI 24.6
[2024-10-30 07:20] LABS: Absolute Lymphocytes (CBC) 1.0 K/uL (0.7-4.9); Hematocrit 35.6 % (39.6-49.0); Hemoglobin 12.0 g/dL (13.6-17.9); MCH 29.1 pg (27.0-35.0); MCHC 33.8 g/dL (32.0-36.0); MCV 86.3 fL (80-100); MPV 7.1 fL (7.6-11.3); Nucleated RBC Absolute Count 0.0 (0-0); Nucleated Red Blood Cells % 0.1 % (0-0); RBC Red Blood Cell Count 4.12 M/uL (4.33-5.43); White Blood Count 6.40 thou/uL (4.3-10.9)
[2024-10-30 07:28] LABS: Anion Gap 6.4 mEq/L (5.0-15.0); BUN Blood Urea Nitrogen 11.0 mg/dL (7-18); Glucose Level 109.0 mg/dL (74-106); Potassium 3.4 mEq/L (3.5-5.1)
--- NOTE | 2024-10-30 12:38 | P.PN ---
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 Recently seen by ENT for sinus mass. Biopsies confirmed Kaposi's sarcoma. Outpatient lab confirmed HIV1 per ENT. Patient to follow PCP/ID on outpatient basis. Patient requesting privacy with diagnosis - not to share with family including his mom. We will need to approach this topic carefully in a more sensitive environment. CT abd/pelvis (10/26): Nonspecific pronounced inflammatory changes centered on the left mesorectal fat, without a discrete fluid collection. Findings are not entirely specific, but could relate to infectious or inflammatory panniculitis. CD4 count and HIV viral load pending Continue empiric zosyn (10/27-) for 3 more days Starting TIVICAY and Truvada Blood cx: NGTD Appreciate infectious disease recommendations Stop Solu-Medrol as this can exacerbate Kaposi's sarcoma symptoms Continue IV fluids Leukocytosis resolved Code: Full Dispo: Home Pending pain and n/v improve
--- NOTE | 2024-10-31 12:22 | P.PN ---
Date of Service: 10/31/24 subjective: pt states doing well with antiviral meds. Denied any questions or concern. report tolerating medication without any issue. objective Temp Pulse Resp BP Pulse Ox 98.1 F 74 17 116/74 95 10/31/24 08:00 10/31/24 08:00 10/31/24 08:00 10/31/24 08:00 10/31/24 08:00 Physical Exam General: Alert, In no apparent distress, Oriented x3, communicate via setswana writings HEENT: PERRLA, EOMI, Neck: Supple, Without JVD or thyroid abnormality Respiratory: Clear to auscultation bilaterally Cardiovascular: Regular rate/rhythm, Normal S1 S2 Gastrointestinal: Normal bowel sounds, Soft and benign, Non-distended, Musculoskeletal: No clubbing, No swelling, No tenderness Integumentary: No rashes or skin lesions Neurological: Normal gait Microbiology 10/26/24 11:42 Blood - Blood Aerobic Blood Culture - Final No growth in 5 days. 10/26/24 11:42 Blood - Blood Anaerobic Blood Culture - Final No growth in 5 days. 10/26/24 11:33 Blood - Blood Aerobic Blood Culture - Final No growth in 5 days. 10/26/24 11:33 Blood - Blood Anaerobic Blood Culture - Final No growth in 5 days. assessment and planning 1. Intractable abdominal pain with nausea and vomiting 2. 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 HIV, newly diagnosis Biopsies confirmed Kaposi's sarcoma. Outpatient lab confirmed HIV1 per ENT Patient requesting privacy with diagnosis - not to share with family including his mom. CD4 count and HIV viral load pending Hep B nonreactive recommend Tivicay and truvada daily. 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 tentative stop date 11/01 will continue to monitor for infection with wbc and fever trend case discussed and in agreement with Dr trivedi
--- NOTE | 2024-10-31 16:15 | P.PN ---
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 Recently seen by ENT for sinus mass. Biopsies confirmed Kaposi's sarcoma. Outpatient lab confirmed HIV1 per ENT. Patient to follow PCP/ID on outpatient basis. Patient requesting privacy with diagnosis - not to share with family including his mom. We will need to approach this topic carefully in a more sensi tive environment. CT abd/pelvis (10/26): Nonspecific pronounced inflammatory changes centered on the left mesorectal fat, without a discrete fluid collection. Findings are not entirely specific, but could relate to infectious or inflammatory panniculitis. CD4 count and HIV viral load pending Zosyn started on 10/27/2024 and will stop tomorrow 11/01/2024 Blood culture with no growth in 5 days Starting TIVICAY and Truvada Appreciate infectious disease recommendations Stop Solu-Medrol as this can exacerbate Kaposi's sarcoma symptoms Continue IV fluids Leukocytosis resolved Replace potassium per protocol Code: Full Dispo: Home tomorrow Pending pain and n/v improve
[2024-11-01 08:49] VITALS: BP 114/65; TEMP 97.5
--- NOTE | 2024-11-01 10:08 | P.DS ---
Admission Date: 10/26/24 Discharge Date: 11/01/24 Disposition: ROUTINE DISCHARGE Discharge Condition: GOOD Reason for Admission: Abdominal pain Brief History of Present Illness: Patient is a 29-year-old gentleman who came to the hospital with abdominal pain. Patient is hearing impaired and communicate with him through sign language. Patient with a history of seizure disorder. Patient has been having pain in the right lower quadrant along with fever and generalized weakness. He was recently seen by ENT for a sinus mass. Biopsies confirmed Kaposi's sarcoma. Concern for HIV. Patient will get a CD4 count and HIV viral load. Patient having abdominal pain with subjective fever. Concerning for opportunistic infection. Will get infectious disease consultation. Upon admission infectious disease was consulted and he was placed on Zosyn. In addition he was started on Truvada and Tivicay. His clinical condition improved over the course of his stay. Remainder of his medical problems are chronic and stable. 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 Recently seen by ENT for sinus mass. Biopsies confirmed Kaposi's sarcoma. Outpatient lab confirmed HIV1 per ENT. Patient to follow PCP/ID on outpatient basis. Patient requesting privacy with diagnosis - not to share with family including his mom. We will need to approach this topic carefully in a more sensitive environment. CT abd/pelvis (10/26): Nonspecific pronounced inflammatory changes centered on the left mesorectal fat, without a discrete fluid collection. Findings are not entirely specific, but could relate to infectious or inflammatory panniculitis. CD4 count and HIV viral load pending Zosyn started on 10/27/2024 and will stop tomorrow 11/01/2024 Blood culture with no growth in 5 days Starting TIVICAY and Truvada Appreciate infectious disease recommendations Stop Solu-Medrol as this can exacerbate Kaposi's sarcoma symptoms Continue IV fluids Leukocytosis resolved Replace potassium per protocol Code: Full Dispo: Home tomorrow Pending pain and n/v improve Vital Signs/Physical Exam: Temp Pulse Resp BP Pulse Ox 97.5 F 63 15 114/65 97 11/01/24 08:00 11/01/24 08:00 11/01/24 08:00 11/01/24 08:00 11/01/24 08:00 Laboratory Data at Discharge: WBC 6.40 thou/uL (4.3-10.9) 10/30/24 07:00 Hgb 12.0 g/dL (13.6-17.9) L 10/30/24 07:00 Hct 35.6 % (39.6-49.0) L 10/30/24 07:00 Plt Count 421 thou/uL (152-406) H 10/30/24 07:00 PT 16.5 SECONDS (10-13.0) H 10/27/24 04:15 INR 1.48 10/27/24 04:15 APTT 29.1 SECONDS (27.2-37.4) 10/27/24 04:15 Sodium 142 mEq/L (136-145) 10/30/24 07:00 Potassium 3.4 mEq/L (3.5-5.1) L 10/30/24 07:00 BUN 11 mg/dL (7-18) 10/30/24 07:00 Creatinine 0.86 mg/dL (0.70-1.30) 10/30/24 07:00 Glucose 109 mg/dL (74-106) H 10/30/24 07:00 Total Bilirubin 0.3 mg/dL (0.2-1.0) 10/29/24 04:35 AST 24 U/L (15-37) 10/29/24 04:35 ALT 38 U/L (16-61) 10/29/24 04:35 Alkaline Phosphatase 93 U/L (45-117) 10/29/24 04:35 Lipase 32 U/L (13-75) 10/26/24 11:33 Home Medications: OXcarbazepine [Oxcarbazepine] 300 mg PO BID 08/01/21 Dolutegravir Sodium [Tivicay] 50 mg PO DAILY 30 Days #30 tab 11/01/24 Emtricitabine/Tenofovir [Truvada* 200 mg-300 mg Tablet] 1 tab PO DAILY 30 Days #30 tab 11/01/24 New Medications: Dolutegravir Sodium [Tivicay] 50 mg PO DAILY 30 Days #30 tab Emtricitabine/Tenofovir [Truvada* 200 mg-300 mg Tablet] 1 tab PO DAILY 30 Days # 30 tab Followup: Lissett Pressley DO [Primary Care Provider] - 1-2 Weeks
--- NOTE | 2024-11-01 18:15 | PN ---
Subjective: The patient lying in bed. No new acute event. Chart reviewed. Objective: Vital Signs: Reviewed. Lungs: Clear to auscultation. Heart: S1, S2. Regular. Abdomen: Soft. Bowel sounds present. Extremities: No edema. Assessment And Plan: Patient is doing well, being discharged today, getting his last dose of Zosyn. We will follow the patient as needed. No other recommendations. NF/MODL Voice ID: [id number] Report ID: [id number]
== END 2024-11-01 11:55 | disposition home or self-care (01) | DRG 607 ==
LOC: ER 10:10 → ERHOLD 15:34 → 2ND 19:52
PROVIDERS: ADMIT Hospitalist; ATTEND Family Medicine
DX: M79.3 Panniculitis, unspecified (principal); C46.9 Kaposi's sarcoma, unspecified; E87.6 Hypokalemia; K59.00 Constipation, unspecified; K62.89 Other specified diseases of anus and rectum; H91.90 Unspecified hearing loss, unspecified ear; K21.9 Gastro-esophageal reflux disease without esophagitis; Z21 Asymptomatic human immunodeficiency virus [HIV] infection status; Z96.21 Cochlear implant status; Z11.52 Encounter for screening for COVID-19; Z90.49 Acquired absence of other specified parts of digestive tract
CPT/HCPCS: 36415; 74177; 80048; 80053; 81001; 83690; 84484; 85025; 85610; 85730; 87040; 87340; 87389; 87428; 87535; 96361; 96365; 96375; 99285; J2270; J2405; J2543; J2919; J3480; J3490; J7030; Q9967